=== PATIENT | female | born 1985 | race Caucasian/White ===

== ENCOUNTER 2018-10-10 10:02 | Emergency (ER) | payer OTHER ==
[~2018-10-10] VITALS: Ht 167.6 cm; Wt 79.1 kg
[~2018-10-10 10:02] MED LIST: /ACETCOD2T PO; /PREG100CA PO; /ROPI5TA PO; /TAMS4CA PO; ADVI200C5 PO; AUGM875T28 PO; BACITAB PO; BACL10TA2 PO; BUTACAP78 PO; BUTATAB16 PO; CIPR500T89 PO; CLIN75CA PO; DEPA250T2 PO; DEPA250T32 PO; DICL50TA2 PO; FLEX10TA2 PO; HYDR25CA PO; LYRI200C PO; LYRI75CA PO; METH75TA PO; MORP15TA10 PO; MS C200T PO; NEUR300C PO; PRED10TA PO; PROP10TA8 PO; ROBA750T4 PO; SKEL800T97 PO; SOMA350T PO; SUMA6INJ16 SC; TIZA4CAP PO; TOPA100T PO; TYLE325T5 PO; ULTR50TA PO; VALI10TA PO; VICO5TAB PO; VITA100037 PO; ZANA6CAP PO; ropinerole PO; topical cream TOP; zofran PO
[2018-10-10 10:12] VITALS: BP 142/92
[2018-10-10] MEDS ORDERED: ACETAMINOPHEN 325 MG TAB PO ONE (10:15)
[2018-10-10] MEDS ORDERED: IBUPROFEN 800 MG TAB PO ONE (10:15)
--- NOTE | 2018-10-10 10:32 | REP ---
CT study of the cervical spine without contrast: History: Trauma. Comparison imaging of the cervical spine is from May 19, 2015. Technique: Helical scanning is acquired and overlapping 2 mm high resolution axial images were generated and reviewed at bone and soft tissue window settings. Coronal and sagittal multiplanar re-formations images are generated. CT findings: There is no evidence of cervical spine element fracture. No skull base fracture is seen. Cervical vertebral body heights are preserved. There is some straightening of the normal cervical lordosis. Alignment is normal. Facet joints are normally aligned bilaterally at each cervical level on multiplanar re-formations images. There is no evidence of intraspinal or paraspinal hematoma. No extra vertebral abnormality is seen. Impression: Straightening, otherwise negative CT study of the cervical spine without contrast. No fracture seen. Electronically Signed by Rolly Browne MD 10/10/2018 10:23 A
--- NOTE | 2018-10-10 10:47 | REP ---
Clinical: Trauma. Technique: AP, lateral, swimmers views of the thoracic spine. Findings: Alignment and kyphosis maintained. Vertebral bodies are intact. No acute fracture / compression injury or subluxation. Stimulator device identified at the T7/T8 level. Impression: No acute thoracic trauma/injury appreciated. Electronically Signed by Horacio Gonzalez MD 10/10/2018 10:38 A
--- NOTE | 2018-10-10 10:47 | REP ---
Clinical: Trauma with left shoulder pain . Technique: Internal rotation, external rotation, and Y view. Findings: No acute fracture or dislocation. The acromioclavicular and glenohumeral joints are intact. No periarticular calcifications or degenerative changes are appreciated. Sub acromial space is normal. Surrounding soft tissues are unremarkable. Impression: Normal left shoulder radiographs. Electronically Signed by Horacio Gonzalez MD 10/10/2018 10:39 A
== END 2018-10-10 10:58 | disposition home or self-care (01) ==
LOC: M ED 10:02 → EDBD 10:02 → M ED 10:58
DX: S16.1XXA Strain of muscle, fascia and tendon at neck level, initial encounter (principal); S40.012A Contusion of left shoulder, initial encounter; S20.229A Contusion of unspecified back wall of thorax, initial encounter; W00.0XXA Fall on same level due to ice and snow, initial encounter; Y92.89 Other specified places as the place of occurrence of the external cause; G43.709 Chronic migraine without aura, not intractable, without status migrainosus; M19.90 Unspecified osteoarthritis, unspecified site; Z91.018 Allergy to other foods

== ENCOUNTER → 2019-09-30 | Outpatient (CLI) | payer OTHER ==
[~2019-09-30] MED LIST changes: -/ACETCOD2T PO; -/PREG100CA PO; -/ROPI5TA PO; -/TAMS4CA PO; +ACET1TAB15 PO; +FLOM0.4C39 PO; +LYRI100C PO; +PRED-351 PO; -PRED10TA PO; +REQU1TAB15 PO
--- NOTE | 2019-09-30 14:39 | REP ---
WHOLE BODY RADIONUCLIDE BONE SCAN: HISTORY: Bone disorder. Other disorder of bone density and structure. The patient reports additional history of right knee pain and limping. Pain from the mid back to the feet. TECHNIQUE: 22.0 mCi technetium 99m MDP is injected and standard whole body bone scan imaging is acquired. SCINTIGRAPHIC FINDINGS: There is a normal distribution of skeletal tracer with uptake in bilateral kidneys and in the urinary bladder. There is no abnormal skeletal uptake. There is no evidence to suggest skeletal metastatic disease. IMPRESSION: Negative radionuclide bone scan. Electronically Signed by Rolly Browne MD 09/30/2019 03:33 P
== END ==
LOC: M RAD 09:56
PROVIDERS: ATTEND Family Medicine
DX: M89.9 Disorder of bone, unspecified (principal)

== ENCOUNTER → 2019-11-17 | Outpatient (CLI) | payer OTHER ==
--- NOTE | 2019-11-19 01:48 | ECWPNPC ---
PATIENT NAME: JACKIE ANTHONY : 1985 GENDER: FEMALE VISIT DATE: 11/17/2019 DISCHARGE DATE: 11/17/19 1517 VISIT LOCKED DATE TIME: PHYSICIAN: DANN HOLLINS RESOURCE: DANN HOLLINS REASON FOR APPOINTMENT 1. BACK PAIN HISTORY OF PRESENT ILLNESS NEW PATIENT CONSULT: WHEN DID YOUR PAIN FIRST START? . BRIEFLY DESCRIBE HOW YOUR PAIN STARTED? . HOW DOES YOUR PAIN CHANGE WITH TIME? . DOES YOUR PAIN AWAKEN YOU FROM SLEEP? . HOW MANY HOURS OF SLEEP DO YOU NORMALLY GET? . ANY DIAGNOSTIC TESTING? . FACILITY WHERE TESTS WERE DONE? ____. PAIN TREATMENT TREATMENT YES CANCER HAVE YOU EVER HAD ANY TYPE OF CANCER?NO NO. 34 YEAR OLD FEMALE IN FOR INITIAL PAIN CONSULT. WHEN ASKED SHE DENIES HX OF TRAUMA AND STATES THE BACK PAIN HAS BEEN PRESENT SINCE 2005. SHE ADMITS TO INJECTIONS, MEDICATIONS, AND DCS IMPLANT IN THE PAST TO HELP CONTROL SYMPTOMS AND STATES THE DCS HAS BEEN THE MOST HELPFUL THUS FAR. SHE RATES HER PAIN CURRENTLY AT A 6/10 AND DESCRIBES IT SHARP, BURNING, STABBING, SHOOTING, AND TENDER. PAIN SCREENING: PATIENT HAS A COMPLAINT OF ACUTE OR CHRONIC PAIN :YES FALL RISK SCREENING: SCREENING : NO FALLS IN THE PAST YEAR. STONE INVENTORY: QUESTIONNAIRE ASSESSEDTBD SCORE VALUE CALCULATED TBD CURRENT MEDICATIONS TAKING GABAPENTIN 300 MG CAPSULE 3 CAPSULES ORALLY 3 TIMES A DAY TAKING MECLIZINE HCL 25 MG TABLET 1 TABLET NEEDED ORALLY 3 TIMES A DAY TAKING PANTOPRAZOLE SODIUM 40 MG TABLET DELAYED RELEASE 1 TABLET ORALLY ONCE A DAY TAKING CETIRIZINE HCL 10 MG TABLET 1 TABLET ORALLY ONCE A DAY TAKING MONTELUKAST SODIUM 10 MG TABLET 1 TABLET ORALLY ONCE A DAY TAKING DULOXETINE HCL 60 MG CAPSULE DELAYED RELEASE PARTICLES 1 CAPSULE ORALLY ONCE A DAY TAKING TRAZODONE HCL 100 MG TABLET 1 TABLET AT BEDTIME ORALLY ONCE A DAY TAKING FLINTSTONES COMPLETE - TABLET CHEWABLE DIRECTED 2 TABLETS ORALLY DAILY TAKING MELATONIN ER 10 MG TABLET EXTENDED RELEASE DIRECTED 2 TABLETS ORALLY NIGHTLY TAKING COLACE 100 MG CAPSULE 1 CAPSULE NEEDED ORALLY ONCE A DAY TAKING NORCO 10-325 MG TABLET 1 TABLET ORALLY EVERY 8 HRS PRN PAIN MDD=4 NOT-TAKING LYRICA 200 MG CAPSULE 1 CAPSULE ORALLY THREE TIMES DAILY (PAIN CLINIC) NOT-TAKING IBUPROFEN 200 MG #60 200 MG TABLETS 2-4 TABLETS ORALLY EVERY 6-8 HOURS NOT-TAKING TYLENOL 325 MG TABLET 1 TABLET NEEDED ORALLY EVERY 6 HRS NOT-TAKING METHOCARBAMOL 750 MG TABLET 1 TABLET ORALLY EVERY 8 HOURS NOT-TAKING LYRICA 200 MG CAPSULE 1 CAPSULE ORALLY THREE A DAY MDD=3 NOT-TAKING CUSTOM DO NO USE MORPHINE IR 15 MG DIRECTED FOUR TIMES DAILY NEEDED (PAIN CLINIC) NOT-TAKING SKELAXIN 800 MG TABLET 1 TABLET ORALLY THREE TO FOUR TIMES A DAY (PAIN CLINIC) NOT-TAKING TIZANIDINE HCL 8 MG TABLET 1 TABLET NEEDED ORALLY EVERY 8 HRS (PAIN CLINIC) NOT-TAKING CEFTIN 500 MG TABLET 1 TABLET ORALLY TWICE A DAY MEDICATION LIST REVIEWED AND RECONCILED WITH THE PATIENT PAST MEDICAL HISTORY CHRONIC R KNEE PAIN LUMBAR DEGENERATIVE DISC DZ/HERNIATION MIGRAINES RLS INSOMNIA HEARING LOSS FROM NOISE EXPOSURE IN THE AR[employer] LEFT WORSE THAN RIGHT KIDNEY STONES MYOPIA FIBROMYALGIA COSTOCHONDRITIS OSTEOARTHRITIS ENDOMETRIOSIS ALLERGIES HONEY: THROAT CLOSES OFF - ALLERGY SURGICAL HISTORY TONSILLECTOMY CHILD 2009 CHOLECYSTECTOMY 11/2015 LEFT WRIST RESET AFTER FRACTURES 04/2002 DORSAL COLUMN STIMULATOR 07/2018 FAMILY HISTORY FATHER: ALIVE, DIAGNOSED WITH DIABETES MOTHER: ALIVE, NO KNOWN MEDICAL PROBLEMS SIBLINGS: ALIVE 22 YRS MATERNAL GRAND MOTHER: ALIVE, BREAST AND LUNG CANCER 1 BROTHER(S) - HEALTHY. 2 SON(S) - HEALTHY. NO KNOWN FAMILY HISTORY OF ANY UROLOGICALLY RELATED DISEASES/CANCERS. SOCIAL HISTORY GENERAL: TOBACCO USE ARE YOU A:FORMER SMOKER HOW LONG HAS IT BEEN SINCE YOU LAST SMOKED?6-12 MONTHS E-CIGARETTEYES IN PROCESS OF QUITTING HIV / HEP-C SCREENING HIV TEST OFFERED TO PATIENT:YES DATE OFFERED:10/10/2018 TEST ACCEPTED:NO HEP-C TEST OFFERED TO PATIENT:NO REASON:PATIENT DECLINED BROCHURE PROVIDED TO PATIENTNO OTHERS AT HOME: YES. HOUSING: HOUSE. EDUCATION LEVEL OF EDUCATION:COLLEGE DIET: REGULAR. LANGUAGE LANGUAGES SPOKEN:VENEZUELAN RECREATIONAL DRUG USE DRUG USE?NO DENIES ABUSE OR MISUSE OF MEDICATIONS. DENIES USE OF MARIJUANA OR COCAINE. 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 PATIENT: ____. LEARNING BARRIERS / SPECIAL NEEDS BARRIERS TO LEARNING?NO HEARING IMPAIRED?YES : ABLE TO HEAR WITHOUT ASSISTIVE DEVICE VISION IMPAIRED?NO COGNITIVELY IMPAIRED?NO READINESS TO LEARN?YES LEARNING PREFERENCES?NO LEARNING CAPABILITIES PRESENT?YES EMOTIONAL BARRIERS?NO SPECIAL DEVICES?NO BRAKE SHOE REBUILDER NEEDED?NO PAIN CLINIC PFS, CLERGY, PUBLIC HEALTH REFERRALS PFS REFERRAL NEEDED?NO CLERGY REFERRAL NEEDED?NO PUBLIC HEALTH REFERRAL NEEDED?NO HAS THE PATIENT BEEN EDUCATED REGARDING HIS/HER PLAN OF CARE?YES HAS THE PATIENT BEEN EDUCATED REGARDING PAIN, THE RISK FOR PAIN, THE IMPORTANCE OF EFFECTIVE PAIN MANAGEMENT, AND THE PAIN ASSESSMENT PROCESS?YES CLERGY REFERRAL NEEDED?NO WAS THE PROVIDER NOTIFIED OF ANY PERTINENT INFO?NO PFS REFERRAL NEEDED?NO PUBLIC HEALTH REFERRAL NEEDED?NO CAFFEINE CAFFEINE USE?YES HOW OFTEN AND HOW MUCH? 2/DAY COFFEE ADVANCE DIRECTIVE ADVANCE DIRECTIVE DISCUSSED WITH PATIENT:YES INFORMATION OFFERED AND DECLINED. YARSANISM [id number] NONE MARITAL STATUS: . 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 [employer] HOSPITALIZATION/MAJOR DIAGNOSTIC PROCEDURE CHILDBIRTH [birth year] REVIEW OF SYSTEMS REVIEWED BY: PROVIDER: ROCKY BLANCO . CONSTITUTIONAL: ANY CHANGE IN YOUR MEDICAL CONDITION? NO . CHILLS NO . FEVER NO . INFECTION: DO YOU HAVE NEW INFECTIONS? NO . DO YOU HAVE HISTORY OF MRSA? NO . MUSCULOSKELETAL: ANY NEW PATTERNS OF PAIN OR NUMBNESS? YES . SYTEMIC LUPUS NO . GASTROENTEROLOGY: ANY NEW CHANGE IN BOWEL CONTROL? DIARRHEA . BARRETTS ESOPHAGUS NO . CIRRHOSIS NO . HEPATITIS NO . LIVER FAILURE NO . ACID REFLUX NO . UNEXPLAINED WEIGHT LOSS YES . GENITOURINARY: ANY NEW CHANGE IN BLADDER CONTROL? YES . IS THERE A CHANCE YOU COULD BE ? NO . HEMATOLOGY/LYMPH: DO YOU TAKE ANY BLOOD THINNERS? (FOR EXAMPLE- COUMADIN, PLAVIX, AGGRENOX, PLATEL, PRADAXA, OR XARELTO) NO . WHEN WAS YOUR LAST DOSE? DATE: TIME: . LOW PLATELET COUNT YES . SICKLE CELL DISEASE NO . VON WILLIEBRANDS NO . FACTOR V LEIDEN NO . THALLASEMIA NO . ANEMIA YES . EASY BRUISING YES . NEUROLOGY: HAVE YOU FALLEN IN THE PAST 12 MONTHS? YES . ANY NEW EXTREMITY NUMBNESS OR WEAKNESS? YES . HEAD INJURY NO . DEMENTIA NO . CEREBRAL PALSY NO . MULTIPLE SCLEROSIS NO . DIZZINESS YES . HEADACHE YES . STROKES NO . VERTIGO YES . CARDIOLOGY: DO YOU HAVE A PACEMAKER OR DEFIBRILLATOR? NO . ANGINA NO . HEART ATTACK NO . HEART SURGERY NO . CONGESTIVE HEART FAILURE/FLUID OVERLOAD NO . CHEST PAIN YES - COSTOCHONDRITIS . HIGH BLOOD PRESSURE NO . IRREGULAR HEART BEAT NO . RESPIRATORY: HAVE YOU BEEN SICK IN THE PAST WEEK? NO . FEVER NO . FLU LIKE SYMPTOMS? NO . CPAP NO . BYPAP NO . ASTHMA NO . EMPHYSEMA NO . CHRONIC LUNG DISEASES NO . SHORTNESS OF BREATH ON EXERTION NO . DO YOU USE ANY TYPE OF TOBACCO (SMOKE, SMOKELESS, CHEW)? NO . COUGH NO . SNORING NO . INTEGUMENTARY: DO YOU HAVE ANY RASHES OR OPEN SORES? NO . ALLERGIC/IMMUNO: ARE YOU ALLERGIC TO IV DYE? NO . ANY NEW ALLERGIES? NO . PSYCHIATRIC: DO YOU HAVE THOUGHTS OF HURTING YOURSELF OR SOMEONE ELSE? NO . ARE YOU ABUSED, NEGLECTED, OR IN AN UNSAFE ENVIRONMENT? NO . ENDOCRINOLOGY: ARE YOU DIABETIC? NO . THYROID DISORDER NO . OTHER: DO YOU NEED ANY PRESCRIPTIONS? YES . IF YES, PLEASE LIST: SOMETHING TO HELP ON REALLY BAD DAYS . ANY NEW PROBLEMS WITH YOUR MEDICATIONS? NO . WHEN DID YOU LAST EAT? ____ . WHEN DID YOU LAST DRINK? ____ . WHAT DID YOU LAST DRINK? ____ . NAME OF PERSON DRIVING YOU HOME? ____ . DO YOU HAVE ANY OTHER QUESTIONS OR CONCERNS YES - LOSE FEELING IN LIMBS, BECOME DIZZY AND FALL . VITAL SIGNS WT 128 LBS, HT 65 IN, BMI 21.30 INDEX, BP 126/70 MM HG, HR 72 /MIN, RR 18 /MIN, TEMP 98.7 F, OXYGEN SAT % 99%, NA INITIALS AW 1336, REVIEWED BY: LS. EXAMINATION GENERAL EXAMINATION: GENERALNO ACUTE DISTRESS, WELL NOURISHED AND HYDRATED. PSYCHAPPROPRIATE MOOD AND AFFECT . LUNGS:CLEAR TO AUSCULTATION BILATERALLY, NO WHEEZES, RHONCHI, RALES. HEART:NO MURMURS, REGULAR RATE AND RHYTHM. BACK:POINT TENDER ALONG LUMBAR SPINE, SURROUNDING SKIN SHOWS NO ERYTHEMA, ECCHYMOSIS, INCREASED WARMTH, AND/OR SKIN ERUPTIONS NOTED.. MUSCULOSKELETAL: NOTABLE WEAKNESS OF THE RLE, LLE WNL. ASSESSMENTS LUMBAR DISC DISEASE WITH RADICULOPATHY - M51.16 (PRIMARY) TREATMENT LUMBAR DISC DISEASE WITH RADICULOPATHY START BELBUCA FILM, 75 MCG, 1 FILM TO THE GUM, BUCALLY, EVERY 12 HRS, 30 DAYS, 60 CLINICAL NOTES: 34 YEAR OLD FEMALE IN FOR INITIAL PAIN CONSULT. GIVEN PRESENTING SYMPTOMS AND RESULTS OF PHYSICAL EXAMINATION RECOMMEND BELBUCA WITH FOLLOW UP IN 1 MONTH TO DETERMINE EFFICACY OF TREATMENT. PROCEDURES DISCUSSED WITH PATIENT AND SHE WOULD LIKE TO RESEARCH RF PROCEDURE. PATIENT HAS EXPRESSED UNDERSTANDING OF AND WAS IN AGREEMENT WITH TX PLAN. GIVEN TIME TO ASK QUESTIONS AND EXPRESS CONCERNS. , ISTOP REGISTRY REVIEWED AND DEMONSTRATES COMPLLIANCE. (REF #[id number] ) BRINGS IN MEDICATIONS WHICH IS APPROPRIATE FOR WHAT WAS DISPENSED. RECENT URINE TOXICOLOGY REVIEWED. NO UNAUTHORIZED MEDICATIONS. NO ILLICIT SUBSTANCES AND PRESCRIBED MEDICATIONS WERE PRESENT. PROCEDURE CODES FA211 ESTABILISHED PATIENT [facility] FACILITY CHARGE DISPOSITION & COMMUNICATION FOLLOW UP 4 WEEKS (REASON: LOW BACK PAIN ) ELECTRONICALLY SIGNED BY BALWINDER ATWOOD ON 11/18/2019 AT 08:01 AM EST DISCLAIMER : THIS IS A VISIT SUMMARY EXTRACTED FROM THE [employer] CHART. IT IS NOT A COPY OF THE [employer] PROGRESS NOTE. FRANCESCA
== END ==
LOC: M PAIN 13:30
PROVIDERS: ATTEND Family Medicine
DX: M51.16 Intervertebral disc disorders with radiculopathy, lumbar region (principal); G43.909 Migraine, unspecified, not intractable, without status migrainosus; G25.81 Restless legs syndrome; G47.00 Insomnia, unspecified; M79.7 Fibromyalgia; F17.290 Nicotine dependence, other tobacco product, uncomplicated; Z91.018 Allergy to other foods; Z79.891 Long term (current) use of opiate analgesic; Z79.899 Other long term (current) drug therapy

== ENCOUNTER → 2019-12-15 | Outpatient (CLI) | payer OTHER ==
--- NOTE | 2019-12-18 02:56 | ECWPNPC ---
PATIENT NAME: JACKIE ANTHONY : 1985 GENDER: FEMALE VISIT DATE: 12/15/2019 DISCHARGE DATE: 12/15/19 1129 VISIT LOCKED DATE TIME: PHYSICIAN: DANN HOLLINS RESOURCE: DANN HOLLINS REASON FOR APPOINTMENT 1. LOW BACK PAIN HISTORY OF PRESENT ILLNESS HISTORY OF PRESENT ILLNESS: PAIN THE PATIENT DESCRIBES THE PAIN... 34-YEAR-OLD FEMALE IN FOR CHRONIC PAIN FOLLOW-UP. AT LAST CLINIC VISIT PATIENT WAS STARTED ON BELBUCA AND SHE ADMITS TODAY THAT THIS HAS BEEN HELPFUL HOWEVER SHE HAD NOT RECEIVED A LOT OF PAIN RELIEF WITH IT. SHE RATES HER PAIN CURRENTLY AT A 6 OUT OF 10 AND DESCRIBES IT SHARP, BURNING, AND SHOOTING. SHE IS QUESTIONING BEING STARTED ON FLEXERIL SHE HAS BEEN ON THIS IN THE PAST AND FOUND IT HELPFUL. FALL RISK SCREENING: SCREENING :NO FALLS REPORTED IN THE LAST YEAR CURRENT MEDICATIONS TAKING MECLIZINE HCL 25 MG TABLET 1 TABLET NEEDED ORALLY 3 TIMES A DAY TAKING PANTOPRAZOLE SODIUM 40 MG TABLET DELAYED RELEASE 1 TABLET ORALLY ONCE A DAY TAKING CETIRIZINE HCL 10 MG TABLET 1 TABLET ORALLY ONCE A DAY TAKING MONTELUKAST SODIUM 10 MG TABLET 1 TABLET ORALLY ONCE A DAY TAKING TRAZODONE HCL 150 MG TABLET 1 TABLET AT BEDTIME ORALLY ONCE A DAY TAKING FLINTSTONES COMPLETE - TABLET CHEWABLE DIRECTED 2 TABLETS ORALLY DAILY TAKING COLACE 100 MG CAPSULE 1 CAPSULE NEEDED ORALLY ONCE A DAY TAKING BELBUCA 75 MCG FILM 1 FILM TO THE GUM BUCALLY EVERY 12 HRS NOT-TAKING GABAPENTIN 300 MG CAPSULE 3 CAPSULES ORALLY 3 TIMES A DAY NOT-TAKING DULOXETINE HCL 60 MG CAPSULE DELAYED RELEASE PARTICLES 1 CAPSULE ORALLY ONCE A DAY NOT-TAKING MELATONIN ER 10 MG TABLET EXTENDED RELEASE DIRECTED 2 TABLETS ORALLY NIGHTLY NOT-TAKING NORCO 10-325 MG TABLET 1 TABLET ORALLY EVERY 8 HRS PRN PAIN MDD=4 NOT-TAKING LYRICA 200 MG CAPSULE 1 CAPSULE ORALLY THREE TIMES DAILY (PAIN CLINIC) NOT-TAKING IBUPROFEN 200 MG #60 200 MG TABLETS 2-4 TABLETS ORALLY EVERY 6-8 HOURS NOT-TAKING TYLENOL 325 MG TABLET 1 TABLET NEEDED ORALLY EVERY 6 HRS NOT-TAKING METHOCARBAMOL 750 MG TABLET 1 TABLET ORALLY EVERY 8 HOURS NOT-TAKING LYRICA 200 MG CAPSULE 1 CAPSULE ORALLY THREE A DAY MDD=3 NOT-TAKING CUSTOM DO NO USE MORPHINE IR 15 MG DIRECTED FOUR TIMES DAILY NEEDED (PAIN CLINIC) NOT-TAKING SKELAXIN 800 MG TABLET 1 TABLET ORALLY THREE TO FOUR TIMES A DAY (PAIN CLINIC) NOT-TAKING TIZANIDINE HCL 8 MG TABLET 1 TABLET NEEDED ORALLY EVERY 8 HRS (PAIN CLINIC) NOT-TAKING CEFTIN 500 MG TABLET 1 TABLET ORALLY TWICE A DAY MEDICATION LIST REVIEWED AND RECONCILED WITH THE PATIENT PAST MEDICAL HISTORY CHRONIC R KNEE PAIN LUMBAR DEGENERATIVE DISC DZ/HERNIATION MIGRAINES RLS INSOMNIA HEARING LOSS FROM NOISE EXPOSURE IN THE ARMY LEFT WORSE THAN RIGHT KIDNEY STONES MYOPIA FIBROMYALGIA COSTOCHONDRITIS OSTEOARTHRITIS ENDOMETRIOSIS ALLERGIES HONEY: THROAT CLOSES OFF - ALLERGY SURGICAL HISTORY TONSILLECTOMY CHILD 2009 CHOLECYSTECTOMY 11/2015 LEFT WRIST RESET AFTER FRACTURES 04/2002 DORSAL COLUMN STIMULATOR 07/2018 FAMILY HISTORY FATHER: ALIVE, DIAGNOSED WITH DIABETES MOTHER: ALIVE, NO KNOWN MEDICAL PROBLEMS SIBLINGS: ALIVE 22 YRS MATERNAL GRAND MOTHER: ALIVE, BREAST AND LUNG CANCER 1 BROTHER(S) - HEALTHY. 2 SON(S) - HEALTHY. NO KNOWN FAMILY HISTORY OF ANY UROLOGICALLY RELATED DISEASES/CANCERS. SOCIAL HISTORY GENERAL: TOBACCO USE ARE YOU A:FORMER SMOKER HOW LONG HAS IT BEEN SINCE YOU LAST SMOKED?6-12 MONTHS VAPORYES E-CIGARETTEYES IN PROCESS OF QUITTING HIV / HEP-C SCREENING HIV TEST OFFERED TO PATIENT:YES DATE OFFERED:10/10/2018 TEST ACCEPTED:NO HEP-C TEST OFFERED TO PATIENT:NO REASON:PATIENT DECLINED BROCHURE PROVIDED TO PATIENTNO OTHERS AT HOME: YES. HOUSING: HOUSE. EDUCATION LEVEL OF EDUCATION:COLLEGE DIET: REGULAR. LANGUAGE LANGUAGES SPOKEN:WOLOF RECREATIONAL DRUG USE DRUG USE?NO DENIES ABUSE OR MISUSE OF MEDICATIONS. DENIES USE OF MARIJUANA OR COCAINE. 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 LEARNING BARRIERS / SPECIAL NEEDS BARRIERS TO LEARNING?NO HEARING IMPAIRED?YES VISION IMPAIRED?NO COGNITIVELY IMPAIRED?NO : ABLE TO HEAR WITHOUT ASSISTIVE DEVICE READINESS TO LEARN?YES LEARNING PREFERENCES?NO LEARNING CAPABILITIES PRESENT?YES EMOTIONAL BARRIERS?NO SPECIAL DEVICES?NO INSTALLATION SERVICE REPRESENTATIVE NEEDED?NO PAIN CLINIC PFS, CLERGY, PUBLIC HEALTH REFERRALS PFS REFERRAL NEEDED?NO CLERGY REFERRAL NEEDED?NO PUBLIC HEALTH REFERRAL NEEDED?NO HAS THE PATIENT BEEN EDUCATED REGARDING HIS/HER PLAN OF CARE?YES HAS THE PATIENT BEEN EDUCATED REGARDING PAIN, THE RISK FOR PAIN, THE IMPORTANCE OF EFFECTIVE PAIN MANAGEMENT, AND THE PAIN ASSESSMENT PROCESS?YES LATEX QUESTIONNAIRE LATEX ALLERGY : HAVE YOU EVER DEVELOPED ANY TYPE OF REACTION AFTER HANDLING LATEX PRODUCTS SUCH RUBBER GLOVES, CONDOMS, DIAPHRAGMS, BALLOONS, SOCKS, OR UNDERWEAR?NO LATEX ALLERGY : HAVE YOU EVER DEVELOPED ANY TYPE OF REACTION DURING OR AFTER DENTAL APPOINTMENT, VAGINAL/RECTAL EXAMINATION, SURGICAL PROCEDURE, OR ANY OTHER EXPOSURE?NO LATEX RISK : HAVE YOU EVER HAD ANY DIFFICULTY BREATHING OR HIVES AFTER EATING OR HANDLING ANY FRUITS, OR VEGETABLES; SUCH KIWI, BANANAS, STONE FRUITS, OR CHESTNUTSNO LATEX RISK : DO YOU HAVE A PREVIOUS PERSONAL HISTORY OF MORE THAN NINE SURGERIES, SPINA BIFIDA, OR REPEATED CATHERIZATIONS? NO LATEX RISK : ARE YOU FREQUENTLY EXPOSED TO LATEX PRODUCTS IN YOUR OCCUPATION?NO DATE ASKED : 12/15/2019 CAFFEINE CAFFEINE USE?YES HOW OFTEN AND HOW MUCH? 2/DAY COFFEE ADVANCE DIRECTIVE ADVANCE DIRECTIVE DISCUSSED WITH PATIENT:YES 12/15/2019 PATIENT HAS NO ADVANCED DIRECTIVES AND HCP INFORMATION OFFERED AND DECLINED. LINDSAY TENRIISM [id number] NONE MARITAL STATUS: . 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 [employer].. REVIEWED WITH PATIENT 12/15/2019 1045 JS. HOSPITALIZATION/MAJOR DIAGNOSTIC PROCEDURE CHILDBIRTH [birth year] REVIEW OF SYSTEMS REVIEWED BY: PROVIDER: ROCKY HOLLINS PHYSICIAN-Vickey . CONSTITUTIONAL: ANY CHANGE IN YOUR MEDICAL CONDITION? NO . CHILLS NO . FEVER NO . INFECTION: DO YOU HAVE NEW INFECTIONS? NO . DO YOU HAVE HISTORY OF MRSA? NO . MUSCULOSKELETAL: ANY NEW PATTERNS OF PAIN OR NUMBNESS? YES, STATES PAIN INCREASED . GASTROENTEROLOGY: ANY NEW CHANGE IN BOWEL CONTROL? NO . GENITOURINARY: ANY NEW CHANGE IN BLADDER CONTROL? NO . IS THERE A CHANCE YOU COULD BE ? NO . HEMATOLOGY/LYMPH: DO YOU TAKE ANY BLOOD THINNERS? (FOR EXAMPLE- COUMADIN, PLAVIX, AGGRENOX, PLATEL, PRADAXA, OR XARELTO) NO . WHEN WAS YOUR LAST DOSE? DATE: TIME: . NEUROLOGY: HAVE YOU FALLEN IN THE PAST 12 MONTHS? YES, STATES FALL DUE TO RIGHT LEG GIVING OUT. NO MAJOR INJURIES, NO ED VISIT . ANY NEW EXTREMITY NUMBNESS OR WEAKNESS? NO . CARDIOLOGY: DO YOU HAVE A PACEMAKER OR DEFIBRILLATOR? YES, DCS . RESPIRATORY: HAVE YOU BEEN SICK IN THE PAST WEEK? NO . FEVER NO . FLU LIKE SYMPTOMS? NO . COUGH NO . INTEGUMENTARY: DO YOU HAVE ANY RASHES OR OPEN SORES? NO . ALLERGIC/IMMUNO: ARE YOU ALLERGIC TO IV DYE? NO . ANY NEW ALLERGIES? NO . PSYCHIATRIC: DO YOU HAVE THOUGHTS OF HURTING YOURSELF OR SOMEONE ELSE? NO . ARE YOU ABUSED, NEGLECTED, OR IN AN UNSAFE ENVIRONMENT? NO . ENDOCRINOLOGY: ARE YOU DIABETIC? NO . OTHER: DO YOU NEED ANY PRESCRIPTIONS? YES . IF YES, PLEASE LIST: ____BELBUCA . ANY NEW PROBLEMS WITH YOUR MEDICATIONS? YES, STATES THE BELBUCA NOT HELPING MUCH . WHEN DID YOU LAST EAT? ____ . WHEN DID YOU LAST DRINK? ____ . WHAT DID YOU LAST DRINK? ____ . NAME OF PERSON DRIVING YOU HOME? ____ . DO YOU HAVE ANY OTHER QUESTIONS OR CONCERNS YES, WOULD LIKE TO DISCUSS STARTING A MUSCLE RELAXER HER LEGS AND BACK HAVE BEEN HAVING A SIGNIFICANT AMOUNT OF MUSCLE SPASMS . VITAL SIGNS WT 136.4 LBS, HT 65 IN, BMI 22.70 INDEX, BP 108/70 MM HG, HR 70 /MIN, RR 18 /MIN, TEMP 98.6 F, OXYGEN SAT % 97%, SAFE IN ENV? (Y/N) YES, REVIEWED BY: LINDSAY. EXAMINATION GENERAL EXAMINATION: GENERALNO ACUTE DISTRESS, WELL NOURISHED AND HYDRATED. PSYCHAPPROPRIATE MOOD AND AFFECT . LUNGS:CLEAR TO AUSCULTATION BILATERALLY, NO WHEEZES, RHONCHI, RALES. HEART:NO MURMURS, REGULAR RATE AND RHYTHM. ASSESSMENTS LUMBAR DISC DISEASE WITH RADICULOPATHY - M51.16 (PRIMARY) TREATMENT LUMBAR DISC DISEASE WITH RADICULOPATHY INCREASE BELBUCA FILM, 150 MCG, 1 FILM TO THE GUM, BUCALLY, EVERY 12 HRS, 30 DAYS, 60 START TIZANIDINE HCL TABLET, 4 MG, 1 TABLET NEEDED, ORALLY, THREE TIMES A DAY, 30 DAYS, 90 TABLET CLINICAL NOTES: 34-YEAR-OLD FEMALE IN FOR CHRONIC PAIN FOLLOW-UP. GIVEN PRESENTING SYMPTOMS AND RESULTS OF PHYSICAL EXAMINATION RECOMMENDED INCREASING BELBUCA AND STARTING FLEXERIL WITH FOLLOW-UP IN ONE MONTH TO DETERMINE EFFICACY TREATMENT. PATIENT HAS EXPRESSED UNDERSTANDING OF AND WAS IN AGREEMENT WITH TREATMENT PLAN. GIVEN TIME TO ASK QUESTIONS AND EXPRESS CONCERNS., ISTOP REGISTRY REVIEWED AND DEMONSTRATES COMPLLIANCE. (REF # [id number] ) BRINGS IN MEDICATIONS WHICH IS APPROPRIATE FOR WHAT WAS DISPENSED. RECENT URINE TOXICOLOGY REVIEWED. NO UNAUTHORIZED MEDICATIONS. NO ILLICIT SUBSTANCES AND PRESCRIBED MEDICATIONS WERE PRESENT. PREVENTIVE MEDICINE PAIN CLINIC TEACHING: MEDICATIONS PRINTED AND REVIEWED INFORMATION ON NEW MEDICATION, TIZANIDINE, WITH PATIENT. PATIENT VERBALIZED AN UNDERSTANDING. LACY TORRES 12/15/2019 1:44:05 PM > . PROCEDURE CODES FA211 ESTABILISHED PATIENT [facility] CHARGE DISPOSITION & COMMUNICATION FOLLOW UP 4 WEEKS (REASON: BACK PAIN, NEW MEDICATION) ELECTRONICALLY SIGNED BY BALWINDER ATWOOD ON 12/17/2019 AT 12:35 PM EST DISCLAIMER : THIS IS A VISIT SUMMARY EXTRACTED FROM THE [employer] CHART. IT IS NOT A COPY OF THE [employer] PROGRESS NOTE. FRANCESCA
== END ==
LOC: M PAIN 10:00
PROVIDERS: ATTEND Family Medicine
DX: M51.16 Intervertebral disc disorders with radiculopathy, lumbar region (principal); G89.29 Other chronic pain; G43.909 Migraine, unspecified, not intractable, without status migrainosus; G25.81 Restless legs syndrome; G47.00 Insomnia, unspecified; M79.7 Fibromyalgia; F17.290 Nicotine dependence, other tobacco product, uncomplicated; Z91.018 Allergy to other foods; Z96.89 Presence of other specified functional implants; Z79.891 Long term (current) use of opiate analgesic; Z79.899 Other long term (current) drug therapy

== ENCOUNTER → 2020-01-20 | Outpatient (CLI) | payer OTHER ==
--- NOTE | 2020-01-22 02:46 | ECWPNPC ---
PATIENT NAME: JACKIE ANTHONY : 1985 GENDER: FEMALE VISIT DATE: 01/20/2020 DISCHARGE DATE: 01/20/20 1026 VISIT LOCKED DATE TIME: PHYSICIAN: DANN HOLLINS RESOURCE: DANN HOLLINS REASON FOR APPOINTMENT 1. LOW BACK PAIN HISTORY OF PRESENT ILLNESS HISTORY OF PRESENT ILLNESS: PAIN THE PATIENT DESCRIBES THE PAINDURING THE LAST MONTH SEVERITY - PAIN SCORE OF7/10 LOCATIONSLOWER BACK, RIGHT LEG QUALITYSTABBING DURATIONCONTINUOUS, CONSTANT, ALL DAY, AWAKENS FROM SLEEEP PAIN IS INCREASED BY:ACTIVITIES, PROLONGED STANDING PAIN IS DECREASED BY:OTHERS LEG ELEVATION 34-YEAR-OLD FEMALE IN FOR CHRONIC PAIN FOLLOW-UP. SHE RATES HER PAIN CURRENTLY AT A 7 OUT OF 10 AND DESCRIBES IT STABBING. SHE IS CURRENTLY ON BELBUCA AND TIZANIDINE AND FEELS THAT NEITHER OF THESE MEDICATIONS ARE HELPING TO ALLEVIATE HIS SYMPTOMS. SHE WOULD LIKE TO DISCUSS A CHANGE IN HER MEDICATIONS. FALL RISK SCREENING: SCREENING :ONE FALL WITHOUT INJURY IN THE PAST YEAR CURRENT MEDICATIONS TAKING MECLIZINE HCL 25 MG TABLET 1 TABLET NEEDED ORALLY 3 TIMES A DAY TAKING PANTOPRAZOLE SODIUM 40 MG TABLET DELAYED RELEASE 1 TABLET ORALLY ONCE A DAY TAKING CETIRIZINE HCL 10 MG TABLET 1 TABLET ORALLY ONCE A DAY TAKING MONTELUKAST SODIUM 10 MG TABLET 1 TABLET ORALLY ONCE A DAY TAKING TRAZODONE HCL 150 MG TABLET 1 TABLET AT BEDTIME ORALLY ONCE A DAY TAKING FLINTSTONES COMPLETE - TABLET CHEWABLE DIRECTED 2 TABLETS ORALLY DAILY TAKING COLACE 100 MG CAPSULE 1 CAPSULE NEEDED ORALLY ONCE A DAY TAKING BELBUCA 150 MCG FILM 1 FILM TO THE GUM BUCALLY EVERY 12 HRS TAKING TIZANIDINE HCL 4 MG TABLET 1 TABLET NEEDED ORALLY THREE TIMES A DAY NOT-TAKING GABAPENTIN 300 MG CAPSULE 3 CAPSULES ORALLY 3 TIMES A DAY NOT-TAKING DULOXETINE HCL 60 MG CAPSULE DELAYED RELEASE PARTICLES 1 CAPSULE ORALLY ONCE A DAY NOT-TAKING MELATONIN ER 10 MG TABLET EXTENDED RELEASE DIRECTED 2 TABLETS ORALLY NIGHTLY NOT-TAKING NORCO 10-325 MG TABLET 1 TABLET ORALLY EVERY 8 HRS PRN PAIN MDD=4 NOT-TAKING LYRICA 200 MG CAPSULE 1 CAPSULE ORALLY THREE TIMES DAILY (PAIN CLINIC) NOT-TAKING IBUPROFEN 200 MG #60 200 MG TABLETS 2-4 TABLETS ORALLY EVERY 6-8 HOURS NOT-TAKING TYLENOL 325 MG TABLET 1 TABLET NEEDED ORALLY EVERY 6 HRS NOT-TAKING METHOCARBAMOL 750 MG TABLET 1 TABLET ORALLY EVERY 8 HOURS NOT-TAKING LYRICA 200 MG CAPSULE 1 CAPSULE ORALLY THREE A DAY MDD=3 NOT-TAKING CUSTOM DO NO USE MORPHINE IR 15 MG DIRECTED FOUR TIMES DAILY NEEDED (PAIN CLINIC) NOT-TAKING SKELAXIN 800 MG TABLET 1 TABLET ORALLY THREE TO FOUR TIMES A DAY (PAIN CLINIC) NOT-TAKING TIZANIDINE HCL 8 MG TABLET 1 TABLET NEEDED ORALLY EVERY 8 HRS (PAIN CLINIC) NOT-TAKING CEFTIN 500 MG TABLET 1 TABLET ORALLY TWICE A DAY MEDICATION LIST REVIEWED AND RECONCILED WITH THE PATIENT PAST MEDICAL HISTORY CHRONIC R KNEE PAIN LUMBAR DEGENERATIVE DISC DZ/HERNIATION MIGRAINES RLS INSOMNIA HEARING LOSS FROM NOISE EXPOSURE IN THE ARMY LEFT WORSE THAN RIGHT KIDNEY STONES MYOPIA FIBROMYALGIA COSTOCHONDRITIS OSTEOARTHRITIS ENDOMETRIOSIS ALLERGIES HONEY: THROAT CLOSES OFF - ALLERGY SURGICAL HISTORY TONSILLECTOMY CHILD 2009 CHOLECYSTECTOMY 11/2015 LEFT WRIST RESET AFTER FRACTURES 04/2002 DORSAL COLUMN STIMULATOR 07/2018 FAMILY HISTORY FATHER: ALIVE, DIAGNOSED WITH DIABETES MOTHER: ALIVE, NO KNOWN MEDICAL PROBLEMS SIBLINGS: ALIVE 22 YRS MATERNAL GRAND MOTHER: ALIVE, BREAST AND LUNG CANCER 1 BROTHER(S) - HEALTHY. 2 SON(S) - HEALTHY. NO KNOWN FAMILY HISTORY OF ANY UROLOGICALLY RELATED DISEASES/CANCERS. SOCIAL HISTORY GENERAL: TOBACCO USE ARE YOU A:FORMER SMOKER HOW LONG HAS IT BEEN SINCE YOU LAST SMOKED?6-12 MONTHS VAPORYES E-CIGARETTEYES IN PROCESS OF QUITTING HIV / HEP-C SCREENING HIV TEST OFFERED TO PATIENT:YES DATE OFFERED:10/10/2018 TEST ACCEPTED:NO HEP-C TEST OFFERED TO PATIENT:NO REASON:PATIENT DECLINED BROCHURE PROVIDED TO PATIENTNO OTHERS AT HOME: YES. HOUSING: HOUSE. EDUCATION LEVEL OF EDUCATION:COLLEGE DIET: REGULAR. LANGUAGE LANGUAGES SPOKEN:JAMAICAN NEW PATIENT PAIN DIARY PATIENT DESCRIBES PAIN :HAVE IT ALL THE TIME, STABBING FROM 0-10, WHAT LEVEL IS YOUR PAIN TODAY?6 PRECIPITATING FACTORS STANDING ALLEVIATING FACTORS ELEVATION OF LEGS IMPACT ON FUNCTION YES RECREATIONAL DRUG USE DRUG USE?NO DENIES ABUSE OR MISUSE OF MEDICATIONS. DENIES USE OF MARIJUANA OR COCAINE. 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 NEEDED?NO PAIN CLINIC PFS, CLERGY, PUBLIC HEALTH REFERRALS PFS REFERRAL NEEDED?NO CLERGY REFERRAL NEEDED?NO PUBLIC HEALTH REFERRAL NEEDED?NO HAS THE PATIENT BEEN EDUCATED REGARDING HIS/HER PLAN OF CARE?YES HAS THE PATIENT BEEN EDUCATED REGARDING PAIN, THE RISK FOR PAIN, THE IMPORTANCE OF EFFECTIVE PAIN MANAGEMENT, AND THE PAIN ASSESSMENT PROCESS?YES LATEX QUESTIONNAIRE LATEX ALLERGY : HAVE YOU EVER DEVELOPED ANY TYPE OF REACTION AFTER HANDLING LATEX PRODUCTS SUCH RUBBER GLOVES, CONDOMS, DIAPHRAGMS, BALLOONS, SOCKS, OR UNDERWEAR?NO LATEX ALLERGY : HAVE YOU EVER DEVELOPED ANY TYPE OF REACTION DURING OR AFTER DENTAL APPOINTMENT, VAGINAL/RECTAL EXAMINATION, SURGICAL PROCEDURE, OR ANY OTHER EXPOSURE?NO DATE ASKED : 12/15/2019 LATEX RISK : HAVE YOU EVER HAD ANY DIFFICULTY BREATHING OR HIVES AFTER EATING OR HANDLING ANY FRUITS, OR VEGETABLES; SUCH KIWI, BANANAS, STONE FRUITS, OR CHESTNUTSNO LATEX RISK : DO YOU HAVE A PREVIOUS PERSONAL HISTORY OF MORE THAN NINE SURGERIES, SPINA BIFIDA, OR REPEATED CATHERIZATIONS? NO LATEX RISK : ARE YOU FREQUENTLY EXPOSED TO LATEX PRODUCTS IN YOUR OCCUPATION?NO CAFFEINE CAFFEINE USE?YES HOW OFTEN AND HOW MUCH? 2/DAY COFFEE ADVANCE DIRECTIVE ADVANCE DIRECTIVE DISCUSSED WITH PATIENT:YES PATIENT HAS NO ADVANCED DIRECTIVES AND HCP INFORMATION OFFERED AND DECLINED. ORTHODOXY [id number] NONE MARITAL STATUS: . 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 [employer].. REVIEWED WITH PATIENT 12/15/2019 1045 JS. HOSPITALIZATION/MAJOR DIAGNOSTIC PROCEDURE CHILDBIRTH [birth year] REVIEW OF SYSTEMS REVIEWED BY: PROVIDER: ROCKY BLANCO . CONSTITUTIONAL: ANY CHANGE IN YOUR MEDICAL CONDITION? NO . CHILLS NO . FEVER NO . INFECTION: DO YOU HAVE NEW INFECTIONS? NO . DO YOU HAVE HISTORY OF MRSA? NO . MUSCULOSKELETAL: ANY NEW PATTERNS OF PAIN OR NUMBNESS? NO . GASTROENTEROLOGY: ANY NEW CHANGE IN BOWEL CONTROL? NO . GENITOURINARY: ANY NEW CHANGE IN BLADDER CONTROL? NO . IS THERE A CHANCE YOU COULD BE ? NO . HEMATOLOGY/LYMPH: DO YOU TAKE ANY BLOOD THINNERS? (FOR EXAMPLE- COUMADIN, PLAVIX, AGGRENOX, PLATEL, PRADAXA, OR XARELTO) NO . WHEN WAS YOUR LAST DOSE? DATE: TIME: . NEUROLOGY: HAVE YOU FALLEN IN THE PAST 12 MONTHS? NO . ANY NEW EXTREMITY NUMBNESS OR WEAKNESS? NO . CARDIOLOGY: DO YOU HAVE A PACEMAKER OR DEFIBRILLATOR? NO . RESPIRATORY: HAVE YOU BEEN SICK IN THE PAST WEEK? NO . FEVER NO . FLU LIKE SYMPTOMS? NO . COUGH NO . INTEGUMENTARY: DO YOU HAVE ANY RASHES OR OPEN SORES? NO . ALLERGIC/IMMUNO: ARE YOU ALLERGIC TO IV DYE? NO . ANY NEW ALLERGIES? NO . PSYCHIATRIC: DO YOU HAVE THOUGHTS OF HURTING YOURSELF OR SOMEONE ELSE? NO . ARE YOU ABUSED, NEGLECTED, OR IN AN UNSAFE ENVIRONMENT? NO . ENDOCRINOLOGY: ARE YOU DIABETIC? NO . OTHER: DO YOU NEED ANY PRESCRIPTIONS? NO . IF YES, PLEASE LIST: ____ . ANY NEW PROBLEMS WITH YOUR MEDICATIONS? NO . WHEN DID YOU LAST EAT? ____ . WHEN DID YOU LAST DRINK? ____ . WHAT DID YOU LAST DRINK? ____ . NAME OF PERSON DRIVING YOU HOME? ____ . DO YOU HAVE ANY OTHER QUESTIONS OR CONCERNS NO . VITAL SIGNS WT 138 LBS, HT 65 IN, BMI 22.96 INDEX, BP 109/65 MM HG, HR 71 /MIN, RR 18 /MIN, TEMP 97.0 F, OXYGEN SAT % 98%, SAFE IN ENV? 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 EXAMINATION GENERAL EXAMINATION: GENERALNO ACUTE DISTRESS, WELL NOURISHED AND HYDRATED. PSYCHAPPROPRIATE MOOD AND AFFECT . LUNGS:CLEAR TO AUSCULTATION BILATERALLY, NO WHEEZES, RHONCHI, RALES. HEART:NO MURMURS, REGULAR RATE AND RHYTHM. 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 CLINICAL NOTES: 34-YEAR-OLD FEMALE IN FOR CHRONIC PAIN FOLLOW-UP. GIVEN PRESENTING SYMPTOMS AND RESULTS OF PHYSICAL EXAMINATION RECOMMENDED STOPPING BELBUCA AND STARTING TRAMADOL 50MG DAILY NEEDED FOR PAIN WITH FOLLOW-UP IN ONE MONTH TO DETERMINE EFFICACY OF TREATMENT. PATIENT HAS EXPRESSED UNDERSTANDING OF AND WAS IN AGREEMENT WITH TREATMENT PLAN. GIVEN TIME TO ASK QUESTIONS AND EXPRESS CONCERNS., ISTOP REGISTRY REVIEWED AND DEMONSTRATES COMPLLIANCE. (REF # [id number]) BRINGS IN MEDICATIONS WHICH IS APPROPRIATE FOR WHAT WAS DISPENSED. RECENT URINE TOXICOLOGY REVIEWED. NO UNAUTHORIZED MEDICATIONS. NO ILLICIT SUBSTANCES AND PRESCRIBED MEDICATIONS WERE PRESENT. PREVENTIVE MEDICINE PAIN CLINIC TEACHING: PROCEDURE TEACHING PRE SCREENING CALL DONE 01/19/20 EM. DISPOSITION & COMMUNICATION FOLLOW UP 4 WEEKS (REASON: BACK PAIN, NEW MEDICATION) ELECTRONICALLY SIGNED BY BALWINDER ATWOOD ON 01/21/2020 AT 01:39 PM EDT DISCLAIMER : THIS IS A VISIT SUMMARY EXTRACTED FROM THE [employer] CHART. IT IS NOT A COPY OF THE [employer] PROGRESS NOTE. FRANCESCA
== END ==
LOC: M PAIN 10:00
PROVIDERS: ATTEND Family Medicine
DX: M51.16 Intervertebral disc disorders with radiculopathy, lumbar region (principal); Z79.899 Other long term (current) drug therapy; Z87.891 Personal history of nicotine dependence; Z91.018 Allergy to other foods

== ENCOUNTER → 2020-02-17 | Outpatient (CLI) | payer OTHER ==
[~2020-02-17] MED LIST changes: +CETI-24 PO; +MONT10TA10; +OXYC1TAB15; +PREG100C; +TIZA6CAP
--- NOTE | 2020-02-19 01:32 | ECWPNPC ---
PATIENT NAME: JACKIE ANTHONY : 1985 GENDER: FEMALE VISIT DATE: 02/17/2020 DISCHARGE DATE: 02/17/20 1126 VISIT LOCKED DATE TIME: PHYSICIAN: DANN HOLLINS RESOURCE: DANN HOLLINS REASON FOR APPOINTMENT 1. BACK PAIN/NEW MED. PAT COMPLETED HISTORY OF PRESENT ILLNESS HISTORY OF PRESENT ILLNESS: PAIN THE PATIENT DESCRIBES THE PAINDURING THE LAST MONTH SEVERITY - PAIN SCORE OF7/10 LOCATIONSLOWER BACK RADIATES TO RIGHT LEG QUALITYSHARP, STABBING DURATIONCONTINUOUS, CONSTANT, ALL DAY, MAINLY DURING THE DAY PAIN IS INCREASED BY:ACTIVITIES PAIN IS DECREASED BY: STRETCHES REMISSION REQUESTED AND RECEIVED FROM PATIENT TO PERFORM TELEHEALTH VISIT. 35-YEAR-OLD FEMALE IN FOR CHRONIC PAIN FOLLOW-UP. AT LAST CLINIC VISIT SHE WAS STARTED ON TRAMADOL AND ADMITS TODAY THAT THIS HAS BEEN INEFFECTIVE IN REDUCING HER PAIN. SHE RATES HER PAIN CURRENTLY AT A 7 OUT OF 10 AND DESCRIBES IT SHARP, AND SHOOTING. FALL RISK SCREENING: SCREENING :ONE FALL WITH INJURY IN THE PAST YEAR RIGHT LEG GAVE OUT AND ENDED UP WITH SEVERE BRUISE ON RIGHT SIDE ABOUT 3 MONTHS AGO. CURRENT MEDICATIONS TAKING MELATONIN ER 10 MG TABLET EXTENDED RELEASE DIRECTED 2 TABLETS ORALLY NIGHTLY TAKING NORCO 10-325 MG TABLET 1 TABLET ORALLY EVERY 8 HRS PRN PAIN MDD=4 TAKING IBUPROFEN 200 MG #60 200 MG TABLETS 2-4 TABLETS ORALLY EVERY 6-8 HOURS TAKING TYLENOL 325 MG TABLET 1 TABLET NEEDED ORALLY EVERY 6 HRS TAKING METHOCARBAMOL 750 MG TABLET 1 TABLET ORALLY EVERY 8 HOURS TAKING CEFTIN 500 MG TABLET 1 TABLET ORALLY TWICE A DAY TAKING MECLIZINE HCL 25 MG TABLET 1 TABLET NEEDED ORALLY 3 TIMES A DAY TAKING PANTOPRAZOLE SODIUM 40 MG TABLET DELAYED RELEASE 1 TABLET ORALLY ONCE A DAY TAKING CETIRIZINE HCL 10 MG TABLET 1 TABLET ORALLY ONCE A DAY TAKING MONTELUKAST SODIUM 10 MG TABLET 1 TABLET ORALLY ONCE A DAY TAKING TRAZODONE HCL 150 MG TABLET 1 TABLET AT BEDTIME ORALLY ONCE A DAY TAKING COLACE 100 MG CAPSULE 1 CAPSULE NEEDED ORALLY ONCE A DAY TAKING TIZANIDINE HCL 4 MG TABLET 1 TABLET NEEDED ORALLY THREE TIMES A DAY NOT-TAKING GABAPENTIN 300 MG CAPSULE 3 CAPSULES ORALLY 3 TIMES A DAY NOT-TAKING DULOXETINE HCL 60 MG CAPSULE DELAYED RELEASE PARTICLES 1 CAPSULE ORALLY ONCE A DAY NOT-TAKING LYRICA 200 MG CAPSULE 1 CAPSULE ORALLY THREE TIMES DAILY (PAIN CLINIC) NOT-TAKING LYRICA 200 MG CAPSULE 1 CAPSULE ORALLY THREE A DAY MDD=3 NOT-TAKING CUSTOM DO NO USE MORPHINE IR 15 MG DIRECTED FOUR TIMES DAILY NEEDED (PAIN CLINIC) NOT-TAKING SKELAXIN 800 MG TABLET 1 TABLET ORALLY THREE TO FOUR TIMES A DAY (PAIN CLINIC) NOT-TAKING TIZANIDINE HCL 8 MG TABLET 1 TABLET NEEDED ORALLY EVERY 8 HRS (PAIN CLINIC), NOTES: DPLICATE NOT-TAKING FLINTSTONES COMPLETE - TABLET CHEWABLE DIRECTED 2 TABLETS ORALLY DAILY NOT-TAKING TRAMADOL HCL 50 MG TABLET 1 TABLET NEEDED ORALLY ONCE A DAY, NOTES: NOT WORKING MEDICATION LIST REVIEWED AND RECONCILED WITH THE PATIENT PAST MEDICAL HISTORY CHRONIC R KNEE PAIN LUMBAR DEGENERATIVE DISC DZ/HERNIATION MIGRAINES RLS INSOMNIA HEARING LOSS FROM NOISE EXPOSURE IN THE ARMY LEFT WORSE THAN RIGHT KIDNEY STONES MYOPIA FIBROMYALGIA COSTOCHONDRITIS OSTEOARTHRITIS ENDOMETRIOSIS ALLERGIES HONEY: THROAT CLOSES OFF - ALLERGY SURGICAL HISTORY TONSILLECTOMY CHILD 2009 CHOLECYSTECTOMY 11/2015 LEFT WRIST RESET AFTER FRACTURES 04/2002 DORSAL COLUMN STIMULATOR 07/2018 FAMILY HISTORY FATHER: ALIVE, DIAGNOSED WITH DIABETES MOTHER: ALIVE, NO KNOWN MEDICAL PROBLEMS SIBLINGS: ALIVE 22 YRS MATERNAL GRAND MOTHER: ALIVE, BREAST AND LUNG CANCER 1 BROTHER(S) - HEALTHY. 2 SON(S) - HEALTHY. NO KNOWN FAMILY HISTORY OF ANY UROLOGICALLY RELATED DISEASES/CANCERS. SOCIAL HISTORY GENERAL: TOBACCO USE ARE YOU A:FORMER SMOKER HOW LONG HAS IT BEEN SINCE YOU LAST SMOKED?6-12 MONTHS VAPORYES E-CIGARETTEYES IN PROCESS OF QUITTING LATEX QUESTIONNAIRE LATEX ALLERGY : HAVE YOU EVER DEVELOPED ANY TYPE OF REACTION AFTER HANDLING LATEX PRODUCTS SUCH RUBBER GLOVES, CONDOMS, DIAPHRAGMS, BALLOONS, SOCKS, OR UNDERWEAR?NO LATEX ALLERGY : HAVE YOU EVER DEVELOPED ANY TYPE OF REACTION DURING OR AFTER DENTAL APPOINTMENT, VAGINAL/RECTAL EXAMINATION, SURGICAL PROCEDURE, OR ANY OTHER EXPOSURE?NO DATE ASKED : 12/15/2019 LATEX RISK : HAVE YOU EVER HAD ANY DIFFICULTY BREATHING OR HIVES AFTER EATING OR HANDLING ANY FRUITS, OR VEGETABLES; SUCH KIWI, BANANAS, STONE FRUITS, OR CHESTNUTSNO LATEX RISK : DO YOU HAVE A PREVIOUS PERSONAL HISTORY OF MORE THAN NINE SURGERIES, SPINA BIFIDA, OR REPEATED CATHERIZATIONS? NO LATEX RISK : ARE YOU FREQUENTLY EXPOSED TO LATEX PRODUCTS IN YOUR OCCUPATION?NO ALCOHOL SCREENING DID YOU HAVE A DRINK CONTAINING ALCOHOL IN THE PAST YEAR?NO POINTS0 INTERPRETATIONNEGATIVE RECREATIONAL DRUG USE DRUG USE?NO DENIES ABUSE OR MISUSE OF MEDICATIONS. DENIES USE OF MARIJUANA OR COCAINE. CAFFEINE CAFFEINE USE?YES HOW OFTEN AND HOW MUCH? 2/DAY COFFEE HIV / HEP-C SCREENING HIV TEST OFFERED TO PATIENT:YES DATE OFFERED:10/10/2018 TEST ACCEPTED:NO HEP-C TEST OFFERED TO PATIENT:NO REASON:PATIENT DECLINED BROCHURE PROVIDED TO PATIENTNO BAPTIST [id number] NONE LANGUAGE LANGUAGES SPOKEN:[place]HAWK EDUCATION LEVEL OF EDUCATION:COLLEGE LEARNING BARRIERS / SPECIAL NEEDS BARRIERS TO LEARNING?NO HEARING IMPAIRED?YES : ABLE TO HEAR WITHOUT ASSISTIVE DEVICE VISION IMPAIRED?NO COGNITIVELY IMPAIRED?NO READINESS TO LEARN?YES LEARNING PREFERENCES?NO LEARNING CAPABILITIES PRESENT?YES EMOTIONAL BARRIERS?NO SPECIAL DEVICES?NO COOK FRY NEEDED?NO DOMESTIC VIOLENCE DO YOU FEEL SAFE IN YOUR ENVIRONMENT?YES 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 [employer] DIET: REGULAR. 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 MARITAL STATUS: . OTHERS AT HOME: YES. NEW PATIENT PAIN DIARY PATIENT DESCRIBES PAIN :HAVE IT ALL THE TIME, STABBING FROM 0-10, WHAT LEVEL IS YOUR PAIN TODAY?6 PRECIPITATING FACTORS STANDING ALLEVIATING FACTORS ELEVATION OF LEGS IMPACT ON FUNCTION YES PAIN CLINIC PFS, CLERGY, PUBLIC HEALTH REFERRALS PFS REFERRAL NEEDED?NO CLERGY REFERRAL NEEDED?NO PUBLIC HEALTH REFERRAL NEEDED?NO HAS THE PATIENT BEEN EDUCATED REGARDING HIS/HER PLAN OF CARE?YES HAS THE PATIENT BEEN EDUCATED REGARDING PAIN, THE RISK FOR PAIN, THE IMPORTANCE OF EFFECTIVE PAIN MANAGEMENT, AND THE PAIN ASSESSMENT PROCESS?YES HOUSING: HOUSE. ADVANCE DIRECTIVE ADVANCE DIRECTIVE DISCUSSED WITH PATIENT:YES PATIENT HAS NO ADVANCED DIRECTIVES AND HCP INFORMATION OFFERED AND DECLINED. REVIEWED WITH PATIENT 12/15/2019 1045 JS. HOSPITALIZATION/MAJOR DIAGNOSTIC PROCEDURE CHILDBIRTH [birth year] REVIEW OF SYSTEMS REVIEWED BY: PROVIDER: ROCKY HOLLINS SYSTEMS SOFTWARE ENGINEER-C . CONSTITUTIONAL: ANY CHANGE IN YOUR MEDICAL CONDITION? NO . CHILLS NO . FEVER NO . INFECTION: DO YOU HAVE NEW INFECTIONS? NO . DO YOU HAVE HISTORY OF MRSA? NO . MUSCULOSKELETAL: ANY NEW PATTERNS OF PAIN OR NUMBNESS? NO . GASTROENTEROLOGY: ANY NEW CHANGE IN BOWEL CONTROL? NO . GENITOURINARY: ANY NEW CHANGE IN BLADDER CONTROL? NO . IS THERE A CHANCE YOU COULD BE ? NO . HEMATOLOGY/LYMPH: DO YOU TAKE ANY BLOOD THINNERS? (FOR EXAMPLE- COUMADIN, PLAVIX, AGGRENOX, PLATEL, PRADAXA, OR XARELTO) NO . WHEN WAS YOUR LAST DOSE? DATE: TIME: . NEUROLOGY: HAVE YOU FALLEN IN THE PAST 12 MONTHS? YES,RIGHT LEG GAVE OUT AND ENDED UP WITH SEVERE BRUISE ON RIGHT SIDE ABOUT 3 MONTHS AGO. . ANY NEW EXTREMITY NUMBNESS OR WEAKNESS? NO . CARDIOLOGY: DO YOU HAVE A PACEMAKER OR DEFIBRILLATOR? NO . RESPIRATORY: HAVE YOU BEEN SICK IN THE PAST WEEK? NO . FEVER NO . FLU LIKE SYMPTOMS? NO . COUGH NO . INTEGUMENTARY: DO YOU HAVE ANY RASHES OR OPEN SORES? NO . ALLERGIC/IMMUNO: ARE YOU ALLERGIC TO IV DYE? NO . ANY NEW ALLERGIES? NO . PSYCHIATRIC: DO YOU HAVE THOUGHTS OF HURTING YOURSELF OR SOMEONE ELSE? NO . ARE YOU ABUSED, NEGLECTED, OR IN AN UNSAFE ENVIRONMENT? NO . ENDOCRINOLOGY: ARE YOU DIABETIC? NO . OTHER: DO YOU NEED ANY PRESCRIPTIONS? NO . IF YES, PLEASE LIST: ____ . ANY NEW PROBLEMS WITH YOUR MEDICATIONS? YES, TRAMADOL NOT WORKING. PT. STOPPED TAKING IT 02/16/20 . WHEN DID YOU LAST EAT? ____ . WHEN DID YOU LAST DRINK? ____ . WHAT DID YOU LAST DRINK? ____ . NAME OF PERSON DRIVING YOU HOME? ____ . DO YOU HAVE ANY OTHER QUESTIONS OR CONCERNS NO . EXAMINATION GENERAL EXAMINATION: GENERALNO ACUTE DISTRESS, WELL NOURISHED AND HYDRATED. PSYCHAPPROPRIATE MOOD AND AFFECT , ORIENTED X 3. ASSESSMENTS LUMBAR DISC DISEASE WITH RADICULOPATHY - M51.16 (PRIMARY) TREATMENT LUMBAR DISC DISEASE WITH RADICULOPATHY START NORCO TABLET, 5-325 MG, 1 TABLET NEEDED, ORALLY, DAILY PRN, 30 DAYS, 30 REFILL GABAPENTIN CAPSULE, 300 MG, 3 CAPSULES, ORALLY, 3 TIMES A DAY, 30 DAYS, 270 CAPSULE STOP TRAMADOL HCL TABLET, 50 MG, 1 TABLET NEEDED, ORALLY, ONCE A DAY, NOTES: NOT WORKING CLINICAL NOTES: 35-YEAR-OLD FEMALE IN FOR CHRONIC PAIN FOLLOW-UP. GIVEN PRESENTING SYMPTOMS RECOMMEND STOPPING TRAMADOL AND STARTING NORCO 1 TABLET DAILY NEEDED FOR PAIN FURTHER RECOMMEND GABAPENTIN 300 MG 3 TIMES A DAY WITH FOLLOW-UP IN ONE MONTH TO DETERMINE EFFICACY OF TREATMENT. PATIENT HAS EXPRESSED UNDERSTANDING OF AND WAS IN AGREEMENT WITH TREATMENT PLAN. GIVEN TIME TO ASK QUESTIONS AND EXPRESS CONCERNS. , ISTOP REGISTRY REVIEWED AND DEMONSTRATES COMPLLIANCE. (REF # [id number] ) BRINGS IN MEDICATIONS WHICH IS APPROPRIATE FOR WHAT WAS DISPENSED. RECENT URINE TOXICOLOGY REVIEWED. NO UNAUTHORIZED MEDICATIONS. NO ILLICIT SUBSTANCES AND PRESCRIBED MEDICATIONS WERE PRESENT. TELEHEALTH VISIT PERFORMED VIA ZOOM. TIME SPENT WITH PATIENT 5 MINUTES. OTHERS NOTES: VITALS NOT OBTAINED DUE TO VIRTUAL VISIT, PRE SCREENING COMPLETED 02/16/20 NA. DISPOSITION & COMMUNICATION FOLLOW UP 4 WEEKS (REASON: BACK PAIN, NEW MEDICATION) ELECTRONICALLY SIGNED BY BALWINDER ATWOOD ON 02/18/2020 AT 08:47 AM EDT DISCLAIMER : THIS IS A VISIT SUMMARY EXTRACTED FROM THE [employer] CHART. IT IS NOT A COPY OF THE [employer] PROGRESS NOTE. FRANCESCA
== END ==
LOC: M PAIN 09:30 → M TMPAIN 09:30
PROVIDERS: ATTEND Family Medicine
DX: M51.16 Intervertebral disc disorders with radiculopathy, lumbar region (principal); Z79.891 Long term (current) use of opiate analgesic; Z79.899 Other long term (current) drug therapy; Z87.891 Personal history of nicotine dependence; Z91.018 Allergy to other foods

== ENCOUNTER → 2020-03-16 | Outpatient (CLI) | payer OTHER ==
[~2020-03-16] MED LIST changes: -CETI-24 PO; -MONT10TA10; -OXYC1TAB15; -PREG100C; -TIZA6CAP
--- NOTE | 2020-03-18 03:21 | ECWPNPC ---
PATIENT NAME: JACKIE ANTHONY : 1985 GENDER: FEMALE VISIT DATE: 03/16/2020 DISCHARGE DATE: 03/16/20 1034 VISIT LOCKED DATE TIME: PHYSICIAN: DANN HOLLINS RESOURCE: DANN HOLLINS REASON FOR APPOINTMENT 1. BACK PAIN, NEW MEDICATION- IN OFFICE VISIT HISTORY OF PRESENT ILLNESS GENERAL: - 35-YEAR-OLD FEMALE IN FOR CHRONIC PAIN FOLLOW-UP. AT LAST CLINIC VISIT PATIENT WAS STARTED ON NORCO AND SHE ADMITS TODAY THAT IT MAY BE HELPFUL HOWEVER IT DOES NOT LAST. SHE RATES HER PAIN CURRENTLY AT A 7 OUT OF 10 AND DESCRIBES IT BURNING. PAIN SCREENING: PATIENT HAS A COMPLAINT OF ACUTE OR CHRONIC PAIN :YES LOCATION OF PAIN:LOW BACK, LEG(S) RADIATES DOWN RIGHT LEG INTENSITY OF PAIN (SCALE OF 1 TO 10):7 WHAT DOES YOUR PAIN FEEL LIKE:BURNING DURATION:CONTINOUS, CONSTANT, ALL DAY PAIN IS INCREASED BY:ACTIVITIES, PROLONGED STANDING SITTING , WALKING PAIN IS DECREASED BY:USE OF PAIN MEDICATIONS HOT/COLD PACKS PAIN HAS INTERFERED WITH THE FOLLOWING:BATHING/DRESSING, MOOD, HOUSEWORK, SLEEP, RELATIONSHIP WITH OTHERS, ENJOYMENT OF LIFE PLAN/GOALS/TREATMENT/INTERVENTION/FOLLOW UP:SEE PLAN FALL RISK SCREENING: SCREENING :ONE FALL WITHOUT INJURY IN THE PAST YEAR RIGHT KNEE GAVE OUT AND SHE FELL DEPRESSION SCREENING: PHQ-2 (2015 EDITION) LITTLE INTEREST OR PLEASURE IN DOING THINGS?NOT AT ALL FEELING DOWN, DEPRESSED, OR HOPELESS?NOT AT ALL TOTAL SCORE0 NURSING NOTE: -. PAIN CENTER INTAKE QUESTIONS: DO YOU HAVE A HISTORY OF MRSA? :NO DO YOU TAKE A BLOOD THINNERS? :NO DO YOU HAVE ANY BLEEDING DISORDERS? :NO ANY NEW NUMBNESS OR WEAKNESS IN YOUR LEGS OR ARMS? :NO ANY PACEMAKER,DEFIBRILLATOR, OR DORSAL COLUMN STIMULATOR? :NO DO YOU HAVE ANY RASHES OR OPEN SORES? :NO ARE YOU ALLERGIC TO IV DYE? :NO ARE YOU DIABETIC? :NO ANY NEW PROBLEMS WITH YOUR MEDICATIONS? :NO HAVE YOU RECEIVED A VACCINE IN THE PAST 30 DAYS? :NO DO YOU PLAN TO RECEIVE A VACCINE IN THE NEXT 21 DAYS? :NO DO YOU NEED ANY PRESCRIPTION? :NO DO YOU TAKE ANY IMMUNOSUPPRESSIVE MEDICATIONS? :NO CURRENT MEDICATIONS TAKING MELATONIN ER 10 MG TABLET EXTENDED RELEASE DIRECTED 2 TABLETS ORALLY NIGHTLY TAKING IBUPROFEN 200 MG #60 200 MG TABLETS 2-4 TABLETS ORALLY EVERY 6-8 HOURS TAKING TYLENOL 325 MG TABLET 1 TABLET NEEDED ORALLY EVERY 6 HRS TAKING METHOCARBAMOL 750 MG TABLET 1 TABLET ORALLY EVERY 8 HOURS TAKING CEFTIN 500 MG TABLET 1 TABLET ORALLY TWICE A DAY TAKING MECLIZINE HCL 25 MG TABLET 1 TABLET NEEDED ORALLY 3 TIMES A DAY TAKING PANTOPRAZOLE SODIUM 40 MG TABLET DELAYED RELEASE 1 TABLET ORALLY ONCE A DAY TAKING CETIRIZINE HCL 10 MG TABLET 1 TABLET ORALLY ONCE A DAY TAKING MONTELUKAST SODIUM 10 MG TABLET 1 TABLET ORALLY ONCE A DAY TAKING TRAZODONE HCL 150 MG TABLET 1 TABLET AT BEDTIME ORALLY ONCE A DAY TAKING COLACE 100 MG CAPSULE 1 CAPSULE NEEDED ORALLY ONCE A DAY TAKING TIZANIDINE HCL 4 MG TABLET 1 TABLET NEEDED ORALLY THREE TIMES A DAY TAKING NORCO 5-325 MG TABLET 1 TABLET NEEDED ORALLY DAILY PRN TAKING GABAPENTIN 300 MG CAPSULE 3 CAPSULES ORALLY 3 TIMES A DAY NOT-TAKING DULOXETINE HCL 60 MG CAPSULE DELAYED RELEASE PARTICLES 1 CAPSULE ORALLY ONCE A DAY NOT-TAKING LYRICA 200 MG CAPSULE 1 CAPSULE ORALLY THREE TIMES DAILY (PAIN CLINIC) NOT-TAKING LYRICA 200 MG CAPSULE 1 CAPSULE ORALLY THREE A DAY MDD=3 NOT-TAKING CUSTOM DO NO USE MORPHINE IR 15 MG DIRECTED FOUR TIMES DAILY NEEDED (PAIN CLINIC) NOT-TAKING SKELAXIN 800 MG TABLET 1 TABLET ORALLY THREE TO FOUR TIMES A DAY (PAIN CLINIC) NOT-TAKING TIZANIDINE HCL 8 MG TABLET 1 TABLET NEEDED ORALLY EVERY 8 HRS (PAIN CLINIC), NOTES: DPLICATE NOT-TAKING FLINTSTONES COMPLETE - TABLET CHEWABLE DIRECTED 2 TABLETS ORALLY DAILY MEDICATION LIST REVIEWED AND RECONCILED WITH THE PATIENT PAST MEDICAL HISTORY CHRONIC R KNEE PAIN LUMBAR DEGENERATIVE DISC DZ/HERNIATION MIGRAINES RLS INSOMNIA HEARING LOSS FROM NOISE EXPOSURE IN THE ARMY LEFT WORSE THAN RIGHT KIDNEY STONES MYOPIA FIBROMYALGIA COSTOCHONDRITIS OSTEOARTHRITIS ENDOMETRIOSIS ALLERGIES HONEY: THROAT CLOSES OFF - ALLERGY SURGICAL HISTORY TONSILLECTOMY CHILD 2009 CHOLECYSTECTOMY 11/2015 LEFT WRIST RESET AFTER FRACTURES 04/2002 DORSAL COLUMN STIMULATOR 07/2018 FAMILY HISTORY FATHER: ALIVE, DIAGNOSED WITH DIABETES MOTHER: ALIVE, NO KNOWN MEDICAL PROBLEMS SIBLINGS: ALIVE 22 YRS MATERNAL GRAND MOTHER: ALIVE, BREAST AND LUNG CANCER 1 BROTHER(S) - HEALTHY. 2 SON(S) - HEALTHY. NO KNOWN FAMILY HISTORY OF ANY UROLOGICALLY RELATED DISEASES/CANCERS. SOCIAL HISTORY GENERAL: TOBACCO USE ARE YOU A:FORMER SMOKER HOW LONG HAS IT BEEN SINCE YOU LAST SMOKED?6-12 MONTHS VAPORYES E-CIGARETTEYES IN PROCESS OF QUITTING LATEX QUESTIONNAIRE LATEX ALLERGY : HAVE YOU EVER DEVELOPED ANY TYPE OF REACTION AFTER HANDLING LATEX PRODUCTS SUCH RUBBER GLOVES, CONDOMS, DIAPHRAGMS, BALLOONS, SOCKS, OR UNDERWEAR?NO LATEX ALLERGY : HAVE YOU EVER DEVELOPED ANY TYPE OF REACTION DURING OR AFTER DENTAL APPOINTMENT, VAGINAL/RECTAL EXAMINATION, SURGICAL PROCEDURE, OR ANY OTHER EXPOSURE?NO LATEX RISK : HAVE YOU EVER HAD ANY DIFFICULTY BREATHING OR HIVES AFTER EATING OR HANDLING ANY FRUITS, OR VEGETABLES; SUCH KIWI, BANANAS, STONE FRUITS, OR CHESTNUTSNO LATEX RISK : DO YOU HAVE A PREVIOUS PERSONAL HISTORY OF MORE THAN NINE SURGERIES, SPINA BIFIDA, OR REPEATED CATHERIZATIONS? NO LATEX RISK : ARE YOU FREQUENTLY EXPOSED TO LATEX PRODUCTS IN YOUR OCCUPATION?NO DATE ASKED : 03/16/2020 ALCOHOL SCREENING DID YOU HAVE A DRINK CONTAINING ALCOHOL IN THE PAST YEAR?NO POINTS0 INTERPRETATIONNEGATIVE RECREATIONAL DRUG USE DRUG USE?NO DENIES ABUSE OR MISUSE OF MEDICATIONS. DENIES USE OF MARIJUANA OR COCAINE. CAFFEINE CAFFEINE USE?YES HOW OFTEN AND HOW MUCH? 2/DAY COFFEE HIV / HEP-C SCREENING HIV TEST OFFERED TO PATIENT:YES DATE OFFERED:10/10/2018 TEST ACCEPTED:NO HEP-C TEST OFFERED TO PATIENT:NO REASON:PATIENT DECLINED BROCHURE PROVIDED TO PATIENTNO BAPTIST [id number] NONE LANGUAGE LANGUAGES SPOKEN:[place]ORE[place] EDUCATION LEVEL OF EDUCATION:COLLEGE LEARNING BARRIERS / SPECIAL NEEDS BARRIERS TO LEARNING?NO HEARING IMPAIRED?YES VISION IMPAIRED?NO COGNITIVELY IMPAIRED?NO : ABLE TO HEAR WITHOUT ASSISTIVE DEVICE READINESS TO LEARN?YES LEARNING PREFERENCES?NO LEARNING CAPABILITIES PRESENT?YES EMOTIONAL BARRIERS?NO SPECIAL DEVICES?NO CAMPAIGN MARKETING SPECIALIST NEEDED?NO DOMESTIC VIOLENCE DO YOU FEEL SAFE IN YOUR ENVIRONMENT?YES 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 [employer].. DIET: REGULAR. 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 MARITAL STATUS: . OTHERS AT HOME: YES. NEW PATIENT PAIN DIARY PATIENT DESCRIBES PAIN :HAVE IT ALL THE TIME, STABBING FROM 0-10, WHAT LEVEL IS YOUR PAIN TODAY?6 PRECIPITATING FACTORS STANDING ALLEVIATING FACTORS ELEVATION OF LEGS IMPACT ON FUNCTION YES PAIN CLINIC PFS, CLERGY, PUBLIC HEALTH REFERRALS PFS REFERRAL NEEDED?NO CLERGY REFERRAL NEEDED?NO PUBLIC HEALTH REFERRAL NEEDED?NO HAS THE PATIENT BEEN EDUCATED REGARDING HIS/HER PLAN OF CARE?YES HAS THE PATIENT BEEN EDUCATED REGARDING PAIN, THE RISK FOR PAIN, THE IMPORTANCE OF EFFECTIVE PAIN MANAGEMENT, AND THE PAIN ASSESSMENT PROCESS?YES HOUSING: HOUSE. ADVANCE DIRECTIVE ADVANCE DIRECTIVE DISCUSSED WITH PATIENT:YES PATIENT HAS NO ADVANCED DIRECTIVES AND HCP INFORMATION OFFERED AND DECLINED. HOSPITALIZATION/MAJOR DIAGNOSTIC PROCEDURE CHILDBIRTH [birth year] REVIEW OF SYSTEMS CONSTITUTIONAL: ANY RECENT FEVER OR ILLNESS NO . CHILLS NO . GASTROENTEROLOGY: BOWEL INCONTINENCE NO . ANY NEW CHANGE IN BOWEL CONTROL? NO . ABDOMINAL PAIN NO . CONSTIPATION NO . GENITOURINARY: ANY NEW CHANGE IN BLADDER CONTROL? NO . URINARY INCONTINENCE NO . CARDIOLOGY: CHEST PRESSURE NO . CHEST PAIN NO . RESPIRATORY: COUGH NO . SHORTNESS OF BREATH NO . VITAL SIGNS WT 136.8 LBS, HT 65 IN, BMI 22.76 INDEX, BP 111/56 MM HG, HR 70 /MIN, RR 18 /MIN, TEMP 99.0 F, OXYGEN SAT % 100%, SAFE IN ENV? 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 EXAMINATION GENERAL EXAMINATION: GENERALNO ACUTE DISTRESS, WELL NOURISHED AND HYDRATED. PSYCHAPPROPRIATE MOOD AND AFFECT . LUNGS:CLEAR TO AUSCULTATION BILATERALLY, NO WHEEZES, RHONCHI, RALES. HEART:NO MURMURS, REGULAR RATE AND RHYTHM. ASSESSMENTS LUMBAR DISC DISEASE WITH RADICULOPATHY - M51.16 (PRIMARY) TREATMENT LUMBAR DISC DISEASE WITH RADICULOPATHY INCREASE TIZANIDINE HCL CAPSULE, 6 MG, 1 TABLET NEEDED, ORALLY, THREE TIMES A DAY, 30 DAYS, 90 INCREASE NORCO TABLET, 5-325 MG, 1 TABLET NEEDED, ORALLY, EVERY 12 HRS NEEDED, 30 DAYS, 60 STOP GABAPENTIN CAPSULE, 300 MG, 3 CAPSULES, ORALLY, 3 TIMES A DAY START LYRICA CAPSULE, 75 MG, 1 CAPSULE, ORALLY, TWICE DAILY, 30 DAYS, 60 CLINICAL NOTES: 35-YEAR-OLD FEMALE IN FOR CHRONIC PAIN FOLLOW-UP. GIVEN PRESENTING SYMPTOMS RECOMMEND INCREASING TIZANIDINE TO 6 MG 3 TIMES A DAY, INCREASING NORCO TO TWICE A DAY DOSING, STOPPING GABAPENTIN, AND STARTING LYRICA 75 MG TWICE A DAY WITH FOLLOW-UP IN ONE MONTH TO DETERMINE EFFICACY OF TREATMENT. DISCUSSED TAPERING DOSE OF GABAPENTIN WITH PATIENT AND SHE WAS INSTRUCTED TO TAKE 1 CAPSULE TWICE A DAY FOR 1 WEEK THEN 1 CAPSULE DAILY FOR 1 WEEK, THEN 1 CAPSULE EVERY OTHER DAY FOR 1 WEEK, AND THEN STOP. PATIENT HAS EXPRESSED UNDERSTANDING OF AND WAS IN AGREEMENT WITH TREATMENT PLAN. GIVEN TIME TO ASK QUESTIONS AND EXPRESS CONCERNS. , ISTOP REGISTRY REVIEWED AND DEMONSTRATES COMPLLIANCE. (REF # [id number] ) BRINGS IN MEDICATIONS WHICH IS APPROPRIATE FOR WHAT WAS DISPENSED. RECENT URINE TOXICOLOGY REVIEWED. NO UNAUTHORIZED MEDICATIONS. NO ILLICIT SUBSTANCES AND PRESCRIBED MEDICATIONS WERE PRESENT. PROCEDURE CODES FA211 ESTABILISHED PATIENT [facility] CHARGE DISPOSITION & COMMUNICATION FOLLOW UP 4 WEEKS (REASON: BACK PAIN ) ELECTRONICALLY SIGNED BY BALWINDER ATWOOD ON 03/17/2020 AT 08:13 AM EDT DISCLAIMER : THIS IS A VISIT SUMMARY EXTRACTED FROM THE [employer] CHART. IT IS NOT A COPY OF THE [employer] PROGRESS NOTE. FRANCESCA
== END ==
LOC: M PAIN 10:00
PROVIDERS: ATTEND Family Medicine
DX: M51.16 Intervertebral disc disorders with radiculopathy, lumbar region (principal); Z79.891 Long term (current) use of opiate analgesic; Z79.899 Other long term (current) drug therapy; Z87.891 Personal history of nicotine dependence; Z91.030 Bee allergy status

== ENCOUNTER → 2020-04-14 | Outpatient (CLI) | payer OTHER ==
--- NOTE | 2020-04-16 04:09 | ECWPNPC ---
PATIENT NAME: JACKIE ANTHONY : 1985 GENDER: FEMALE VISIT DATE: 04/14/2020 DISCHARGE DATE: 04/14/20 1041 VISIT LOCKED DATE TIME: PHYSICIAN: DANN HOLLINS RESOURCE: DANN HOLLINS REASON FOR APPOINTMENT 1. BACK PAIN [phone] PAT DONE HISTORY OF PRESENT ILLNESS GENERAL: PERMISSION REQUESTED AND RECEIVED FROM PATIENT TO PERFORM TELEPHONE VISIT.- 35-YEAR-OLD FEMALE IN FOR CHRONIC PAIN FOLLOW-UP. SHE RATES HER PAIN CURRENTLY AT A 6 OUT OF 10. AT LAST CLINIC VISIT PATIENT WAS STARTED ON LYRICA AND TIZANIDINE WAS INCREASED AND SHE FEELS BOTH MEDICATIONS ARE BENEFICIAL. HOWEVER THE NORCO STILL IS NOT HELPING TO CONTROL HER PAIN. FALL RISK SCREENING: SCREENING :ONE FALL WITHOUT INJURY IN THE PAST YEAR PAIN SCREENING: PATIENT HAS A COMPLAINT OF ACUTE OR CHRONIC PAIN :YES LOCATION OF PAIN:LOW BACK, LEFT HIP, RIGHT HIP INTENSITY OF PAIN (SCALE OF 1 TO 10):6 WHAT DOES YOUR PAIN FEEL LIKE:SHARP, STABBING DURATION:CONTINOUS, CONSTANT, ALL DAY PAIN IS INCREASED BY:ACTIVITIES, PROLONGED STANDING PAIN IS DECREASED BY:USE OF PAIN MEDICATIONS PAIN HAS INTERFERED WITH THE FOLLOWING:MOOD, HOUSEWORK, RELATIONSHIP WITH OTHERS, ENJOYMENT OF LIFE PLAN/GOALS/TREATMENT/INTERVENTION/FOLLOW UP:SEE PLAN NURSING NOTE: -. PAIN CENTER INTAKE QUESTIONS: DO YOU HAVE A HISTORY OF MRSA? :NO DO YOU TAKE A BLOOD THINNERS? :NO DO YOU HAVE ANY BLEEDING DISORDERS? :NO ANY NEW NUMBNESS OR WEAKNESS IN YOUR LEGS OR ARMS? :NO ANY PACEMAKER,DEFIBRILLATOR, OR DORSAL COLUMN STIMULATOR? :NO DO YOU HAVE ANY RASHES OR OPEN SORES? :NO ARE YOU ALLERGIC TO IV DYE? :NO ARE YOU DIABETIC? :NO ANY NEW PROBLEMS WITH YOUR MEDICATIONS? :NO HAVE YOU RECEIVED A VACCINE IN THE PAST 30 DAYS? :NO DO YOU PLAN TO RECEIVE A VACCINE IN THE NEXT 21 DAYS? :NO DO YOU NEED ANY PRESCRIPTION? :YES LYRICA, HYDROCODONE, TIZANIDINE DO YOU TAKE ANY IMMUNOSUPPRESSIVE MEDICATIONS? :NO IS THERE A CHANCE YOU COULD BE ? :NO ARE YOU BREAST FEEDING? :NO CURRENT MEDICATIONS TAKING MELATONIN ER 10 MG TABLET EXTENDED RELEASE DIRECTED 2 TABLETS ORALLY NIGHTLY TAKING IBUPROFEN 200 MG #60 200 MG TABLETS 2-4 TABLETS ORALLY EVERY 6-8 HOURS TAKING TYLENOL 325 MG TABLET 1 TABLET NEEDED ORALLY EVERY 6 HRS TAKING METHOCARBAMOL 750 MG TABLET 1 TABLET ORALLY EVERY 8 HOURS TAKING CEFTIN 500 MG TABLET 1 TABLET ORALLY TWICE A DAY TAKING MECLIZINE HCL 25 MG TABLET 1 TABLET NEEDED ORALLY 3 TIMES A DAY TAKING PANTOPRAZOLE SODIUM 40 MG TABLET DELAYED RELEASE 1 TABLET ORALLY ONCE A DAY TAKING CETIRIZINE HCL 10 MG TABLET 1 TABLET ORALLY ONCE A DAY TAKING MONTELUKAST SODIUM 10 MG TABLET 1 TABLET ORALLY ONCE A DAY TAKING TRAZODONE HCL 150 MG TABLET 1 TABLET AT BEDTIME ORALLY ONCE A DAY TAKING COLACE 100 MG CAPSULE 1 CAPSULE NEEDED ORALLY ONCE A DAY TAKING TIZANIDINE HCL 6 MG CAPSULE 1 TABLET NEEDED ORALLY THREE TIMES A DAY TAKING NORCO 5-325 MG TABLET 1 TABLET NEEDED ORALLY EVERY 12 HRS NEEDED TAKING LYRICA 75 MG CAPSULE 1 CAPSULE ORALLY TWICE DAILY NOT-TAKING DULOXETINE HCL 60 MG CAPSULE DELAYED RELEASE PARTICLES 1 CAPSULE ORALLY ONCE A DAY NOT-TAKING LYRICA 200 MG CAPSULE 1 CAPSULE ORALLY THREE TIMES DAILY (PAIN CLINIC) NOT-TAKING LYRICA 200 MG CAPSULE 1 CAPSULE ORALLY THREE A DAY MDD=3 NOT-TAKING CUSTOM DO NO USE MORPHINE IR 15 MG DIRECTED FOUR TIMES DAILY NEEDED (PAIN CLINIC) NOT-TAKING SKELAXIN 800 MG TABLET 1 TABLET ORALLY THREE TO FOUR TIMES A DAY (PAIN CLINIC) NOT-TAKING TIZANIDINE HCL 8 MG TABLET 1 TABLET NEEDED ORALLY EVERY 8 HRS (PAIN CLINIC), NOTES: DPLICATE NOT-TAKING FLINTSTONES COMPLETE - TABLET CHEWABLE DIRECTED 2 TABLETS ORALLY DAILY MEDICATION LIST REVIEWED AND RECONCILED WITH THE PATIENT PAST MEDICAL HISTORY CHRONIC R KNEE PAIN LUMBAR DEGENERATIVE DISC DZ/HERNIATION MIGRAINES RLS INSOMNIA HEARING LOSS FROM NOISE EXPOSURE IN THE ARMY LEFT WORSE THAN RIGHT KIDNEY STONES MYOPIA FIBROMYALGIA COSTOCHONDRITIS OSTEOARTHRITIS ENDOMETRIOSIS ALLERGIES HONEY: THROAT CLOSES OFF - ALLERGY SURGICAL HISTORY TONSILLECTOMY CHILD 2009 CHOLECYSTECTOMY 11/2015 LEFT WRIST RESET AFTER FRACTURES 04/2002 DORSAL COLUMN STIMULATOR 07/2018 FAMILY HISTORY FATHER: ALIVE, DIAGNOSED WITH DIABETES MOTHER: ALIVE, NO KNOWN MEDICAL PROBLEMS SIBLINGS: ALIVE 22 YRS MATERNAL GRAND MOTHER: ALIVE, BREAST AND LUNG CANCER 1 BROTHER(S) - HEALTHY. 2 SON(S) - HEALTHY. NO KNOWN FAMILY HISTORY OF ANY UROLOGICALLY RELATED DISEASES/CANCERS. SOCIAL HISTORY GENERAL: TOBACCO USE ARE YOU A:FORMER SMOKER HOW LONG HAS IT BEEN SINCE YOU LAST SMOKED?6-12 MONTHS VAPORYES E-CIGARETTEYES IN PROCESS OF QUITTING LATEX QUESTIONNAIRE LATEX ALLERGY : HAVE YOU EVER DEVELOPED ANY TYPE OF REACTION AFTER HANDLING LATEX PRODUCTS SUCH RUBBER GLOVES, CONDOMS, DIAPHRAGMS, BALLOONS, SOCKS, OR UNDERWEAR?NO LATEX ALLERGY : HAVE YOU EVER DEVELOPED ANY TYPE OF REACTION DURING OR AFTER DENTAL APPOINTMENT, VAGINAL/RECTAL EXAMINATION, SURGICAL PROCEDURE, OR ANY OTHER EXPOSURE?NO DATE ASKED : 03/16/2020 LATEX RISK : HAVE YOU EVER HAD ANY DIFFICULTY BREATHING OR HIVES AFTER EATING OR HANDLING ANY FRUITS, OR VEGETABLES; SUCH KIWI, BANANAS, STONE FRUITS, OR CHESTNUTSNO LATEX RISK : DO YOU HAVE A PREVIOUS PERSONAL HISTORY OF MORE THAN NINE SURGERIES, SPINA BIFIDA, OR REPEATED CATHERIZATIONS? NO LATEX RISK : ARE YOU FREQUENTLY EXPOSED TO LATEX PRODUCTS IN YOUR OCCUPATION?NO ALCOHOL SCREENING DID YOU HAVE A DRINK CONTAINING ALCOHOL IN THE PAST YEAR?NO POINTS0 INTERPRETATIONNEGATIVE RECREATIONAL DRUG USE DRUG USE?NO DENIES ABUSE OR MISUSE OF MEDICATIONS. DENIES USE OF MARIJUANA OR COCAINE. CAFFEINE CAFFEINE USE?YES HOW OFTEN AND HOW MUCH? 2/DAY COFFEE HIV / HEP-C SCREENING HIV TEST OFFERED TO PATIENT:YES DATE OFFERED:10/10/2018 TEST ACCEPTED:NO HEP-C TEST OFFERED TO PATIENT:NO REASON:PATIENT DECLINED BROCHURE PROVIDED TO PATIENTNO ZOROASTRIAN [id number] NONE LANGUAGE LANGUAGES SPOKEN:KHMER EDUCATION LEVEL OF EDUCATION:COLLEGE LEARNING BARRIERS / SPECIAL NEEDS BARRIERS TO LEARNING?NO HEARING IMPAIRED?YES VISION IMPAIRED?NO COGNITIVELY IMPAIRED?NO : ABLE TO HEAR WITHOUT ASSISTIVE DEVICE READINESS TO LEARN?YES LEARNING PREFERENCES?NO LEARNING CAPABILITIES PRESENT?YES EMOTIONAL BARRIERS?NO SPECIAL DEVICES?NO OBSTETRICIAN/GYNECOLOGIST NEEDED?NO DOMESTIC VIOLENCE DO YOU FEEL SAFE IN YOUR ENVIRONMENT?YES 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 [employer].. DIET: REGULAR. 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 MARITAL STATUS: . OTHERS AT HOME: YES. NEW PATIENT PAIN DIARY PATIENT DESCRIBES PAIN :HAVE IT ALL THE TIME, STABBING FROM 0-10, WHAT LEVEL IS YOUR PAIN TODAY?6 PRECIPITATING FACTORS STANDING ALLEVIATING FACTORS ELEVATION OF LEGS IMPACT ON FUNCTION YES PAIN CLINIC PFS, CLERGY, PUBLIC HEALTH REFERRALS PFS REFERRAL NEEDED?NO CLERGY REFERRAL NEEDED?NO PUBLIC HEALTH REFERRAL NEEDED?NO HAS THE PATIENT BEEN EDUCATED REGARDING HIS/HER PLAN OF CARE?YES HAS THE PATIENT BEEN EDUCATED REGARDING PAIN, THE RISK FOR PAIN, THE IMPORTANCE OF EFFECTIVE PAIN MANAGEMENT, AND THE PAIN ASSESSMENT PROCESS?YES HOUSING: HOUSE. ADVANCE DIRECTIVE ADVANCE DIRECTIVE DISCUSSED WITH PATIENT:YES PATIENT HAS NO ADVANCED DIRECTIVES AND HCP INFORMATION OFFERED AND DECLINED. HOSPITALIZATION/MAJOR DIAGNOSTIC PROCEDURE CHILDBIRTH 2003, 2008 REVIEW OF SYSTEMS CONSTITUTIONAL: ANY RECENT FEVER NO . CHILLS NO . WEIGHT CHANGE OF UNKNOWN REASONS NO . GASTROENTEROLOGY: NEW UNEXPLAINABLE CHANGES IN BOWEL CONTROL NO . CONSTIPATION NO . GENITOURINARY: ANY NEW CHANGE IN BLADDER CONTROL? NO . NEUROLOGY: NEW ONSET DIZZINESS OR NEUROLOGICAL CHANGES NOT MENTIONED NO . NEW NUMBNESS OR PAIN PATTERNS NOT MENTIONED AND PERTINENT TO TODAY'S VISIT NO . CARDIOLOGY: NEW CHEST PRESSURE NO . NEW CHEST PAIN NO . RESPIRATORY: UNEXPLAINABLE COUGH NO . NEW SHORTNESS OF BREATH NO . EXAMINATION GENERAL EXAMINATION: PSYCHAPPROPRIATE MOOD AND AFFECT , ORIENTED X 3. ASSESSMENTS LUMBAR DISC DISEASE WITH RADICULOPATHY - M51.16 (PRIMARY) TREATMENT LUMBAR DISC DISEASE WITH RADICULOPATHY REFILL TIZANIDINE HCL CAPSULE, 6 MG, 1 TABLET NEEDED, ORALLY, THREE TIMES A DAY, 30 DAYS, 90 STOP NORCO TABLET, 5-325 MG, 1 TABLET NEEDED, ORALLY, EVERY 12 HRS NEEDED, 30 DAYS, 60 REFILL LYRICA CAPSULE, 75 MG, 1 CAPSULE, ORALLY, TWICE DAILY, 30 DAYS, 60 START OXYCODONE-ACETAMINOPHEN TABLET, 5-325 MG, 1 TABLET NEEDED, ORALLY, EVERY 12 HRS FOR PAIN, 30 DAYS, 60 CLINICAL NOTES: 35-YEAR-OLD FEMALE IN FOR CHRONIC PAIN FOLLOW-UP. GIVEN PRESENTING SYMPTOMS RECOMMENDED STOPPING NORCO AND STARTING PERCOCET WITH FOLLOW-UP IN ONE MONTH TO DETERMINE EFFICACY OF TREATMENT. PATIENT HAS EXPRESSED UNDERSTANDING OF AND WAS IN AGREEMENT WITH TREATMENT PLAN. GIVEN TIME TO ASK QUESTIONS AND EXPRESS CONCERNS. , ISTOP REGISTRY REVIEWED AND DEMONSTRATES COMPLLIANCE. (REF # [id number] ) BRINGS IN MEDICATIONS WHICH IS APPROPRIATE FOR WHAT WAS DISPENSED. RECENT URINE TOXICOLOGY REVIEWED. NO UNAUTHORIZED MEDICATIONS. NO ILLICIT SUBSTANCES AND PRESCRIBED MEDICATIONS WERE PRESENT. VISIT TO BE BILLED BASED ON TIME SPENT WITH PATIENT. TIME SPENT WITH PATIENT 11 MINUTES. OTHERS NOTES: VITALS NOTOBTAINED DUE TO VIRTUAL VISIT, PRE-SCREENING COMPLETED, 04/13/20, NA. DISPOSITION & COMMUNICATION FOLLOW UP 4 WEEKS (REASON: BACK PAIN, NEW MEDICATION) ELECTRONICALLY SIGNED BY BALWINDER ATWOOD ON 04/15/2020 AT 08:26 AM EDT DISCLAIMER : THIS IS A VISIT SUMMARY EXTRACTED FROM THE [employer] CHART. IT IS NOT A COPY OF THE [employer] PROGRESS NOTE. FRANCESCA
== END ==
LOC: M PAIN 10:00
PROVIDERS: ATTEND Family Medicine
DX: M51.16 Intervertebral disc disorders with radiculopathy, lumbar region (principal)

== ENCOUNTER → 2020-05-12 | Outpatient (CLI) | payer OTHER | LOC: M PAIN 09:00 | PROVIDERS: ATTEND Family Medicine | DX: M51.16 Intervertebral disc disorders with radiculopathy, lumbar region (principal) ==

== ENCOUNTER → 2020-06-08 | Outpatient (CLI) | payer OTHER | LOC: M PAIN 11:08 | PROVIDERS: ATTEND Family Medicine | DX: M51.16 Intervertebral disc disorders with radiculopathy, lumbar region (principal) ==

== ENCOUNTER → 2020-08-18 | Outpatient (CLI) | payer OTHER ==
--- NOTE | 2020-08-21 23:07 | ECWPNPC ---
PATIENT NAME: JACKIE ANTHONY : 1985 GENDER: FEMALE VISIT DATE: 08/18/2020 DISCHARGE DATE: 08/18/20 1334 VISIT LOCKED DATE TIME: PHYSICIAN: DANN HOLLINS RESOURCE: DANN HOLLINS REASON FOR APPOINTMENT 1. BACK HISTORY OF PRESENT ILLNESS GENERAL: 35-YEAR-OLD FEMALE IN FOR CHRONIC PAIN FOLLOW-UP. SHE RATES HER PAIN CURRENTLY AT A 6 OUT OF 10 AND DESCRIBES IT CONTINUOUS, SHARP, AND SHOOTING. AT LAST CLINIC VISIT PATIENT'S MEDICATIONS WERE INCREASED AND SHE ADMITS TODAY THAT THIS HAS BEEN UNHELPFUL. FALL RISK SCREENING: SCREENING :TWO OR MORE FALLS WITHOUT INJURY IN THE PAST YEAR PAIN SCREENING: PATIENT HAS A COMPLAINT OF ACUTE OR CHRONIC PAIN :YES LOCATION OF PAIN:LOW BACK, LEG(S) RIGHT LEG INTENSITY OF PAIN (SCALE OF 1 TO 10):6 WHAT DOES YOUR PAIN FEEL LIKE:CONTINOUS, SHARP, SHOOTING DURATION:CONTINOUS WORSE IN THE EVENING PAIN IS INCREASED BY:ACTIVITIES, OTHERS PROLONGED SITTING PAIN IS DECREASED BY: "NOTHING" NURSING NOTE: - -. CURRENT MEDICATIONS TAKING MELATONIN ER 10 MG TABLET EXTENDED RELEASE DIRECTED 2 TABLETS ORALLY NIGHTLY, NOTES: NONE IN PAST MONTH TAKING IBUPROFEN 200 MG #60 200 MG TABLETS 2-4 TABLETS ORALLY EVERY 6-8 HOURS, NOTES: NONE IN MONTH TAKING TYLENOL 325 MG TABLET 1 TABLET NEEDED ORALLY EVERY 6 HRS TAKING CETIRIZINE HCL 10 MG TABLET 1 TABLET ORALLY ONCE A DAY TAKING MONTELUKAST SODIUM 10 MG TABLET 1 TABLET ORALLY ONCE A DAY TAKING TIZANIDINE HCL 6 MG CAPSULE 1 TABLET NEEDED ORALLY THREE TIMES A DAY TAKING LYRICA 75 MG CAPSULE 1 CAPSULE ORALLY TWICE DAILY TAKING OXYCODONE-ACETAMINOPHEN 5-325 MG TABLET 1 TABLET NEEDED ORALLY EVERY 8 HRS FOR PAIN NOT-TAKING METHOCARBAMOL 750 MG TABLET 1 TABLET ORALLY EVERY 8 HOURS NOT-TAKING CEFTIN 500 MG TABLET 1 TABLET ORALLY TWICE A DAY NOT-TAKING MECLIZINE HCL 25 MG TABLET 1 TABLET NEEDED ORALLY 3 TIMES A DAY NOT-TAKING PANTOPRAZOLE SODIUM 40 MG TABLET DELAYED RELEASE 1 TABLET ORALLY ONCE A DAY NOT-TAKING TRAZODONE HCL 150 MG TABLET 1 TABLET AT BEDTIME ORALLY ONCE A DAY NOT-TAKING COLACE 100 MG CAPSULE 1 CAPSULE NEEDED ORALLY ONCE A DAY NOT-TAKING DULOXETINE HCL 60 MG CAPSULE DELAYED RELEASE PARTICLES 1 CAPSULE ORALLY ONCE A DAY NOT-TAKING LYRICA 200 MG CAPSULE 1 CAPSULE ORALLY THREE TIMES DAILY (PAIN CLINIC) NOT-TAKING LYRICA 200 MG CAPSULE 1 CAPSULE ORALLY THREE A DAY MDD=3 NOT-TAKING CUSTOM DO NO USE MORPHINE IR 15 MG DIRECTED FOUR TIMES DAILY NEEDED (PAIN CLINIC) NOT-TAKING SKELAXIN 800 MG TABLET 1 TABLET ORALLY THREE TO FOUR TIMES A DAY (PAIN CLINIC) NOT-TAKING TIZANIDINE HCL 8 MG TABLET 1 TABLET NEEDED ORALLY EVERY 8 HRS (PAIN CLINIC), NOTES: DPLICATE NOT-TAKING FLINTSTONES COMPLETE - TABLET CHEWABLE DIRECTED 2 TABLETS ORALLY DAILY MEDICATION LIST REVIEWED AND RECONCILED WITH THE PATIENT PAST MEDICAL HISTORY CHRONIC R KNEE PAIN LUMBAR DEGENERATIVE DISC DZ/HERNIATION MIGRAINES RLS INSOMNIA HEARING LOSS FROM NOISE EXPOSURE IN THE [employer] LEFT WORSE THAN RIGHT KIDNEY STONES MYOPIA FIBROMYALGIA COSTOCHONDRITIS OSTEOARTHRITIS ENDOMETRIOSIS ALLERGIES HONEY: THROAT CLOSES OFF - ALLERGY SURGICAL HISTORY TONSILLECTOMY CHILD 2009 CHOLECYSTECTOMY 11/2015 LEFT WRIST RESET AFTER FRACTURES 04/2002 DORSAL COLUMN STIMULATOR 07/2018 FAMILY HISTORY FATHER: ALIVE, DIAGNOSED WITH DIABETES MOTHER: ALIVE, NO KNOWN MEDICAL PROBLEMS SIBLINGS: ALIVE 22 YRS MATERNAL GRAND MOTHER: ALIVE, BREAST AND LUNG CANCER 1 BROTHER(S) - HEALTHY. 2 SON(S) - HEALTHY. NO KNOWN FAMILY HISTORY OF ANY UROLOGICALLY RELATED DISEASES/CANCERS. SOCIAL HISTORY GENERAL: TOBACCO USE ARE YOU A:FORMER SMOKER HOW LONG HAS IT BEEN SINCE YOU LAST SMOKED?6-12 MONTHS VAPORYES E-CIGARETTEYES IN PROCESS OF QUITTING LATEX QUESTIONNAIRE LATEX ALLERGY : HAVE YOU EVER DEVELOPED ANY TYPE OF REACTION AFTER HANDLING LATEX PRODUCTS SUCH RUBBER GLOVES, CONDOMS, DIAPHRAGMS, BALLOONS, SOCKS, OR UNDERWEAR?NO LATEX ALLERGY : HAVE YOU EVER DEVELOPED ANY TYPE OF REACTION DURING OR AFTER DENTAL APPOINTMENT, VAGINAL/RECTAL EXAMINATION, SURGICAL PROCEDURE, OR ANY OTHER EXPOSURE?NO LATEX RISK : HAVE YOU EVER HAD ANY DIFFICULTY BREATHING OR HIVES AFTER EATING OR HANDLING ANY FRUITS, OR VEGETABLES; SUCH KIWI, BANANAS, STONE FRUITS, OR CHESTNUTSNO LATEX RISK : DO YOU HAVE A PREVIOUS PERSONAL HISTORY OF MORE THAN NINE SURGERIES, SPINA BIFIDA, OR REPEATED CATHERIZATIONS? NO LATEX RISK : ARE YOU FREQUENTLY EXPOSED TO LATEX PRODUCTS IN YOUR OCCUPATION?NO DATE ASKED : 08/18/2020 ALCOHOL SCREENING DID YOU HAVE A DRINK CONTAINING ALCOHOL IN THE PAST YEAR?NO POINTS0 INTERPRETATIONNEGATIVE RECREATIONAL DRUG USE DRUG USE?NO DENIES ABUSE OR MISUSE OF MEDICATIONS. DENIES USE OF MARIJUANA OR COCAINE. CAFFEINE CAFFEINE USE?YES HOW OFTEN AND HOW MUCH? 2/DAY COFFEE HIV / HEP-C SCREENING HIV TEST OFFERED TO PATIENT:YES DATE OFFERED:10/10/2018 TEST ACCEPTED:NO HEP-C TEST OFFERED TO PATIENT:NO REASON:PATIENT DECLINED BROCHURE PROVIDED TO PATIENTNO HOAHAOISM [id number] NONE LANGUAGE LANGUAGES SPOKEN:FINNISH EDUCATION LEVEL OF EDUCATION:COLLEGE LEARNING BARRIERS / SPECIAL NEEDS BARRIERS TO LEARNING?NO HEARING IMPAIRED?YES : ABLE TO HEAR WITHOUT ASSISTIVE DEVICE VISION IMPAIRED?NO COGNITIVELY IMPAIRED?NO READINESS TO LEARN?YES LEARNING PREFERENCES?NO LEARNING CAPABILITIES PRESENT?YES EMOTIONAL BARRIERS?NO SPECIAL DEVICES?NO REGULATORY SUBMISSIONS ASSOCIATE NEEDED?NO DOMESTIC VIOLENCE DO YOU FEEL SAFE IN YOUR ENVIRONMENT?YES 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 [employer].. DIET: REGULAR. 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 MARITAL STATUS: . OTHERS AT HOME: YES. PATIENT DESCRIBES PAIN :HAVE IT ALL THE TIME, STABBING FROM 0-10, WHAT LEVEL IS YOUR PAIN TODAY?6 PRECIPITATING FACTORS STANDING ALLEVIATING FACTORS ELEVATION OF LEGS IMPACT ON FUNCTION YES PAIN CLINIC PFS, CLERGY, PUBLIC HEALTH REFERRALS PFS REFERRAL NEEDED?NO CLERGY REFERRAL NEEDED?NO PUBLIC HEALTH REFERRAL NEEDED?NO HAS THE PATIENT BEEN EDUCATED REGARDING HIS/HER PLAN OF CARE?YES HAS THE PATIENT BEEN EDUCATED REGARDING PAIN, THE RISK FOR PAIN, THE IMPORTANCE OF EFFECTIVE PAIN MANAGEMENT, AND THE PAIN ASSESSMENT PROCESS?YES HOUSING: HOUSE. ADVANCE DIRECTIVE ADVANCE DIRECTIVE DISCUSSED WITH PATIENT:YES PATIENT HAS NO ADVANCED DIRECTIVES AND HCP INFORMATION OFFERED AND DECLINED. HOSPITALIZATION/MAJOR DIAGNOSTIC PROCEDURE CHILDBIRTH 2004, 2008 REVIEW OF SYSTEMS CONSTITUTIONAL: ANY RECENT FEVER NO . CHILLS NO . WEIGHT CHANGE OF UNKNOWN REASONS NO . GASTROENTEROLOGY: NEW UNEXPLAINABLE CHANGES IN BOWEL CONTROL NO . CONSTIPATION NO . GENITOURINARY: ANY NEW CHANGE IN BLADDER CONTROL? NO . NEUROLOGY: NEW ONSET DIZZINESS OR NEUROLOGICAL CHANGES NOT MENTIONED NO . NEW NUMBNESS OR PAIN PATTERNS NOT MENTIONED AND PERTINENT TO TODAY'S VISIT NO . CARDIOLOGY: NEW CHEST PRESSURE NO . NEW CHEST PAIN NO . RESPIRATORY: UNEXPLAINABLE COUGH NO . NEW SHORTNESS OF BREATH NO . VITAL SIGNS WT 146.0 LBS, HT 65 IN, BMI 24.29 INDEX, BP 114/66 MM HG, HR 67 /MIN, RR 18 /MIN, TEMP 99.6 F, OXYGEN SAT % 100%, SAFE IN ENV? (Y/N) YES, NA INITIALS AW 1131, REVIEWED BY: JOHNSON 1142. EXAMINATION GENERAL EXAMINATION: GENERALNO ACUTE DISTRESS, WELL NOURISHED AND HYDRATED. PSYCHAPPROPRIATE MOOD AND AFFECT . LUNGS:CLEAR TO AUSCULTATION BILATERALLY, NO WHEEZES, RHONCHI, RALES. HEART:NO MURMURS, REGULAR RATE AND RHYTHM. ASSESSMENTS LUMBAR DISC DISEASE WITH RADICULOPATHY - M51.16 (PRIMARY) TREATMENT LUMBAR DISC DISEASE WITH RADICULOPATHY CONTINUE LYRICA CAPSULE, 100 MG, 1 CAPSULE, ORALLY, THREE TIMES DAILY, 30 DAYS, 90 INCREASE OXYCODONE-ACETAMINOPHEN TABLET, 7.5-325 MG, 1 TABLET NEEDED, ORALLY, EVERY 8 HRS FOR PAIN, 30 DAYS, 90 NOTES: 35-YEAR-OLD FEMALE IN FOR CHRONIC PAIN FOLLOW-UP. GIVEN PRESENTING SYMPTOMS RECOMMEND INCREASING PERCOCET TO 7.54/325 MG 3 TIMES A DAY WITH FOLLOW-UP IN 2 MONTHS. PATIENT HAS EXPRESSED UNDERSTANDING OF AND WAS IN AGREEMENT WITH TREATMENT PLAN. GIVEN TIME TO ASK QUESTIONS AND EXPRESS CONCERNS. , ISTOP REGISTRY REVIEWED AND DEMONSTRATES COMPLLIANCE. (REF # [id number] ) BRINGS IN MEDICATIONS WHICH IS APPROPRIATE FOR WHAT WAS DISPENSED. RECENT URINE TOXICOLOGY REVIEWED. NO UNAUTHORIZED MEDICATIONS. NO ILLICIT SUBSTANCES AND PRESCRIBED MEDICATIONS WERE PRESENT. UTOX COMPLETED, REVIEWED AND DISCUSSED WRITTEN AND VERBAL INSTRUCTIONS FOR MEDICATION CHANGES AND TREATMENT PLAN, PT ACKNOWLEDGES UNDERSTANDING. DS. PROCEDURE CODES FA211 ESTABILISHED PATIENT [facility] CHARGE DISPOSITION & COMMUNICATION FOLLOW UP 2 MONTHS (REASON: BACK PAIN) ELECTRONICALLY SIGNED BY BALWINDER ATWOOD ON 08/21/2020 AT 09:22 AM EST DISCLAIMER : THIS IS A VISIT SUMMARY EXTRACTED FROM THE [employer] CHART. IT IS NOT A COPY OF THE [employer] PROGRESS NOTE. MTDD
== END ==
LOC: M PAIN 11:15
PROVIDERS: ATTEND Family Medicine
DX: M51.16 Intervertebral disc disorders with radiculopathy, lumbar region (principal); G89.29 Other chronic pain; G43.909 Migraine, unspecified, not intractable, without status migrainosus; G25.81 Restless legs syndrome; G47.00 Insomnia, unspecified; M79.7 Fibromyalgia; F17.290 Nicotine dependence, other tobacco product, uncomplicated; Z91.018 Allergy to other foods; Z79.899 Other long term (current) drug therapy

== ENCOUNTER → 2020-10-20 | Outpatient (CLI) | payer OTHER ==
--- NOTE | 2020-10-21 23:42 | ECWPNPC ---
PATIENT NAME: JACKIE ANTHONY : 1985 GENDER: FEMALE VISIT DATE: 10/20/2020 DISCHARGE DATE: 10/20/20 1149 VISIT LOCKED DATE TIME: PHYSICIAN: DANN HOLLINS RESOURCE: DANN HOLLINS REASON FOR APPOINTMENT 1. BACK HISTORY OF PRESENT ILLNESS GENERAL: - 35-YEAR-OLD FEMALE IN FOR CHRONIC PAIN FOLLOW-UP. SHE RATES HER PAIN CURRENTLY AT A 5 OUT OF 10 AND DESCRIBES IT STABBING, AND SHOOTING. HER MEDICATIONS ARE INCREASED AT LAST CLINIC VISIT AND SHE ADMITS TODAY THAT THIS HAS BEEN BENEFICIAL. FALL RISK SCREENING: SCREENING :TWO OR MORE FALLS WITHOUT INJURY IN THE PAST YEAR PAIN SCREENING: PATIENT HAS A COMPLAINT OF ACUTE OR CHRONIC PAIN :YES LOCATION OF PAIN:UPPER BACK, MID BACK, LOW BACK INTENSITY OF PAIN (SCALE OF 1 TO 10):5 WHAT DOES YOUR PAIN FEEL LIKE:STABBING, SHOOTING DURATION:CONTINOUS, CONSTANT, ALL DAY PAIN IS INCREASED BY:PROLONGED STANDING, OTHERS SITTING STILL PAIN IS DECREASED BY:USE OF PAIN MEDICATIONS, OTHERS MOVING IN PLACE HELP WITH HIPS TREATMENT/MEDICATIONS USED TO MANAGE PAIN:OPIOIDS LEVEL OF RELIEF FROM PAIN TREATMENTS IN THE PAST:50% PAIN HAS INTERFERED WITH THE FOLLOWING:BATHING/DRESSING, WALKING ABILITY NURSING NOTE: -. PAIN CENTER INTAKE QUESTIONS: DO YOU HAVE A HISTORY OF MRSA? :NO DO YOU TAKE A BLOOD THINNERS? :NO DO YOU HAVE ANY BLEEDING DISORDERS? :NO ANY NEW NUMBNESS OR WEAKNESS IN YOUR LEGS OR ARMS? :NO ANY PACEMAKER,DEFIBRILLATOR, OR DORSAL COLUMN STIMULATOR? :YES DORSAL COLUMN STIMULATOR DO YOU HAVE ANY RASHES OR OPEN SORES? :NO ARE YOU ALLERGIC TO IV DYE? :NO ARE YOU DIABETIC? :NO ANY NEW PROBLEMS WITH YOUR MEDICATIONS? :NO HAVE YOU RECEIVED A VACCINE IN THE PAST 30 DAYS? :NO DO YOU PLAN TO RECEIVE A VACCINE IN THE NEXT 21 DAYS? :NO DO YOU NEED ANY PRESCRIPTION? :NO DO YOU TAKE ANY IMMUNOSUPPRESSIVE MEDICATIONS? :NO IS THERE A CHANCE YOU COULD BE ? :NO ARE YOU BREAST FEEDING? :NO CURRENT MEDICATIONS TAKING IBUPROFEN 200 MG #60 200 MG TABLETS 2-4 TABLETS ORALLY EVERY 6-8 HOURS, NOTES: NONE IN MONTH TAKING TYLENOL 325 MG TABLET 1 TABLET NEEDED ORALLY EVERY 6 HRS TAKING CETIRIZINE HCL 10 MG TABLET 1 TABLET ORALLY ONCE A DAY TAKING OXYCODONE-ACETAMINOPHEN 7.5-325 MG TABLET 1 TABLET NEEDED ORALLY EVERY 8 HRS FOR PAIN TAKING LYRICA 100 MG CAPSULE 1 CAPSULE ORALLY THREE TIMES DAILY TAKING TIZANIDINE HCL 6 MG CAPSULE 1 TABLET NEEDED ORALLY THREE TIMES A DAY TAKING SINGULAIR 5 MG TABLET CHEWABLE DIRECTED ORALLY NOT-TAKING MELATONIN ER 10 MG TABLET EXTENDED RELEASE DIRECTED 2 TABLETS ORALLY NIGHTLY, NOTES: NONE IN PAST MONTH NOT-TAKING MONTELUKAST SODIUM 10 MG TABLET 1 TABLET ORALLY ONCE A DAY NOT-TAKING METHOCARBAMOL 750 MG TABLET 1 TABLET ORALLY EVERY 8 HOURS NOT-TAKING CEFTIN 500 MG TABLET 1 TABLET ORALLY TWICE A DAY NOT-TAKING MECLIZINE HCL 25 MG TABLET 1 TABLET NEEDED ORALLY 3 TIMES A DAY NOT-TAKING PANTOPRAZOLE SODIUM 40 MG TABLET DELAYED RELEASE 1 TABLET ORALLY ONCE A DAY NOT-TAKING TRAZODONE HCL 150 MG TABLET 1 TABLET AT BEDTIME ORALLY ONCE A DAY NOT-TAKING COLACE 100 MG CAPSULE 1 CAPSULE NEEDED ORALLY ONCE A DAY NOT-TAKING DULOXETINE HCL 60 MG CAPSULE DELAYED RELEASE PARTICLES 1 CAPSULE ORALLY ONCE A DAY NOT-TAKING LYRICA 200 MG CAPSULE 1 CAPSULE ORALLY THREE TIMES DAILY (PAIN CLINIC) NOT-TAKING LYRICA 200 MG CAPSULE 1 CAPSULE ORALLY THREE A DAY MDD=3 NOT-TAKING CUSTOM DO NO USE MORPHINE IR 15 MG DIRECTED FOUR TIMES DAILY NEEDED (PAIN CLINIC) NOT-TAKING SKELAXIN 800 MG TABLET 1 TABLET ORALLY THREE TO FOUR TIMES A DAY (PAIN CLINIC) NOT-TAKING TIZANIDINE HCL 8 MG TABLET 1 TABLET NEEDED ORALLY EVERY 8 HRS (PAIN CLINIC), NOTES: DPLICATE NOT-TAKING FLINTSTONES COMPLETE - TABLET CHEWABLE DIRECTED 2 TABLETS ORALLY DAILY MEDICATION LIST REVIEWED AND RECONCILED WITH THE PATIENT PAST MEDICAL HISTORY CHRONIC R KNEE PAIN LUMBAR DEGENERATIVE DISC DZ/HERNIATION MIGRAINES RLS INSOMNIA HEARING LOSS FROM NOISE EXPOSURE IN THE ARMY LEFT WORSE THAN RIGHT KIDNEY STONES MYOPIA FIBROMYALGIA COSTOCHONDRITIS OSTEOARTHRITIS ENDOMETRIOSIS ALLERGIES HONEY: THROAT CLOSES OFF - ALLERGY SURGICAL HISTORY TONSILLECTOMY CHILD 2009 CHOLECYSTECTOMY 11/2015 LEFT WRIST RESET AFTER FRACTURES 04/2002 DORSAL COLUMN STIMULATOR 07/2018 FAMILY HISTORY FATHER: ALIVE, DIAGNOSED WITH DIABETES MOTHER: ALIVE, NO KNOWN MEDICAL PROBLEMS SIBLINGS: ALIVE 23 YRS MATERNAL GRAND MOTHER: ALIVE, BREAST AND LUNG CANCER 1 BROTHER(S) - HEALTHY. 2 SON(S) - HEALTHY. NO KNOWN FAMILY HISTORY OF ANY UROLOGICALLY RELATED DISEASES/CANCERS. SOCIAL HISTORY GENERAL: TOBACCO USE ARE YOU A:FORMER SMOKER HOW LONG HAS IT BEEN SINCE YOU LAST SMOKED?6-12 MONTHS VAPORYES E-CIGARETTEYES IN PROCESS OF QUITTING LATEX QUESTIONNAIRE LATEX ALLERGY : HAVE YOU EVER DEVELOPED ANY TYPE OF REACTION AFTER HANDLING LATEX PRODUCTS SUCH RUBBER GLOVES, CONDOMS, DIAPHRAGMS, BALLOONS, SOCKS, OR UNDERWEAR?NO LATEX ALLERGY : HAVE YOU EVER DEVELOPED ANY TYPE OF REACTION DURING OR AFTER DENTAL APPOINTMENT, VAGINAL/RECTAL EXAMINATION, SURGICAL PROCEDURE, OR ANY OTHER EXPOSURE?NO LATEX RISK : HAVE YOU EVER HAD ANY DIFFICULTY BREATHING OR HIVES AFTER EATING OR HANDLING ANY FRUITS, OR VEGETABLES; SUCH KIWI, BANANAS, STONE FRUITS, OR CHESTNUTSNO LATEX RISK : DO YOU HAVE A PREVIOUS PERSONAL HISTORY OF MORE THAN NINE SURGERIES, SPINA BIFIDA, OR REPEATED CATHERIZATIONS? NO LATEX RISK : ARE YOU FREQUENTLY EXPOSED TO LATEX PRODUCTS IN YOUR OCCUPATION?NO DATE ASKED : 10/20/2020 ALCOHOL SCREENING DID YOU HAVE A DRINK CONTAINING ALCOHOL IN THE PAST YEAR?NO POINTS0 INTERPRETATIONNEGATIVE RECREATIONAL DRUG USE DRUG USE?NO DENIES ABUSE OR MISUSE OF MEDICATIONS. DENIES USE OF MARIJUANA OR COCAINE. CAFFEINE CAFFEINE USE?YES HOW OFTEN AND HOW MUCH? 2/DAY COFFEE HIV / HEP-C SCREENING HIV TEST OFFERED TO PATIENT:YES DATE OFFERED:10/10/2018 TEST ACCEPTED:NO HEP-C TEST OFFERED TO PATIENT:NO REASON:PATIENT DECLINED BROCHURE PROVIDED TO PATIENTNO YARSANI [id number] NONE LANGUAGE LANGUAGES SPOKEN:AMERICAN EDUCATION LEVEL OF EDUCATION:COLLEGE LEARNING BARRIERS / SPECIAL NEEDS BARRIERS TO LEARNING?NO HEARING IMPAIRED?YES VISION IMPAIRED?NO COGNITIVELY IMPAIRED?NO : ABLE TO HEAR WITHOUT ASSISTIVE DEVICE READINESS TO LEARN?YES LEARNING PREFERENCES?NO LEARNING CAPABILITIES PRESENT?YES EMOTIONAL BARRIERS?NO SPECIAL DEVICES?NO TOE SEWER NEEDED?NO DOMESTIC VIOLENCE DO YOU FEEL SAFE IN YOUR ENVIRONMENT?YES 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 [employer].. DIET: REGULAR. 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 MARITAL STATUS: . OTHERS AT HOME: YES. PATIENT DESCRIBES PAIN :HAVE IT ALL THE TIME, STABBING FROM 0-10, WHAT LEVEL IS YOUR PAIN TODAY?6 PRECIPITATING FACTORS STANDING ALLEVIATING FACTORS ELEVATION OF LEGS IMPACT ON FUNCTION YES PAIN CLINIC PFS, CLERGY, PUBLIC HEALTH REFERRALS PFS REFERRAL NEEDED?NO CLERGY REFERRAL NEEDED?NO PUBLIC HEALTH REFERRAL NEEDED?NO HAS THE PATIENT BEEN EDUCATED REGARDING HIS/HER PLAN OF CARE?YES HAS THE PATIENT BEEN EDUCATED REGARDING PAIN, THE RISK FOR PAIN, THE IMPORTANCE OF EFFECTIVE PAIN MANAGEMENT, AND THE PAIN ASSESSMENT PROCESS?YES HOUSING: HOUSE. ADVANCE DIRECTIVE ADVANCE DIRECTIVE DISCUSSED WITH PATIENT:YES PATIENT HAS NO ADVANCED DIRECTIVES AND HCP INFORMATION OFFERED AND DECLINED. HOSPITALIZATION/MAJOR DIAGNOSTIC PROCEDURE CHILDBIRTH 2004, 2008 REVIEW OF SYSTEMS CONSTITUTIONAL: ANY RECENT FEVER NO . CHILLS NO . WEIGHT CHANGE OF UNKNOWN REASONS NO . GASTROENTEROLOGY: NEW UNEXPLAINABLE CHANGES IN BOWEL CONTROL NO . CONSTIPATION NO . GENITOURINARY: ANY NEW CHANGE IN BLADDER CONTROL? NO . NEUROLOGY: NEW ONSET DIZZINESS OR NEUROLOGICAL CHANGES NOT MENTIONED NO . NEW NUMBNESS OR PAIN PATTERNS NOT MENTIONED AND PERTINENT TO TODAY'S VISIT NO . CARDIOLOGY: NEW CHEST PRESSURE NO . NEW CHEST PAIN NO . RESPIRATORY: UNEXPLAINABLE COUGH NO . NEW SHORTNESS OF BREATH NO . VITAL SIGNS WT 148.8 LBS, HT 65 IN, BMI 24.76 INDEX, BP 113/70 MM HG, HR 59 /MIN, RR 18 /MIN, TEMP 97.6 F, OXYGEN SAT % 95%, SAFE IN ENV? (Y/N) YES, NA INITIALS AW 1109, REVIEWED BY: RODO IHLL. EXAMINATION GENERAL EXAMINATION: GENERALNO ACUTE DISTRESS, WELL NOURISHED AND HYDRATED. PSYCHAPPROPRIATE MOOD AND AFFECT . LUNGS:CLEAR TO AUSCULTATION BILATERALLY, NO WHEEZES, RHONCHI, RALES. HEART:NO MURMURS, REGULAR RATE AND RHYTHM. ASSESSMENTS LUMBAR DISC DISEASE WITH RADICULOPATHY - M51.16 (PRIMARY) TREATMENT LUMBAR DISC DISEASE WITH RADICULOPATHY NOTES: 35-YEAR-OLD FEMALE IN FOR CHRONIC PAIN FOLLOW-UP. GIVEN PRESENTING SYMPTOMS RECOMMENDED CONTINUATION OF CURRENT MEDICATION REGIMEN WITH FOLLOW-UP IN 3 MONTHS. PATIENT HAS EXPRESSED UNDERSTANDING OF AND WAS IN AGREEMENT WITH TREATMENT PLAN. GIVEN TIME TO ASK QUESTIONS AND EXPRESS CONCERNS. , ISTOP REGISTRY REVIEWED AND DEMONSTRATES COMPLLIANCE. (REF #[id number] ) BRINGS IN MEDICATIONS WHICH IS APPROPRIATE FOR WHAT WAS DISPENSED. RECENT URINE TOXICOLOGY REVIEWED. NO UNAUTHORIZED MEDICATIONS. NO ILLICIT SUBSTANCES AND PRESCRIBED MEDICATIONS WERE PRESENT. PROCEDURE CODES FA211 ESTABILISHED PATIENT [facility] CHARGE DISPOSITION & COMMUNICATION FOLLOW UP 3 MONTHS (REASON: BACK PAIN) ELECTRONICALLY SIGNED BY BALWINDER ATWOOD ON 10/21/2020 AT 09:07 AM EST DISCLAIMER : THIS IS A VISIT SUMMARY EXTRACTED FROM THE [employer] CHART. IT IS NOT A COPY OF THE [employer] PROGRESS NOTE. FRANCESCA
== END ==
LOC: M PAIN 11:00
PROVIDERS: ATTEND Family Medicine
DX: M51.16 Intervertebral disc disorders with radiculopathy, lumbar region (principal); G89.29 Other chronic pain; G43.909 Migraine, unspecified, not intractable, without status migrainosus; G25.81 Restless legs syndrome; G47.00 Insomnia, unspecified; M79.7 Fibromyalgia; F17.290 Nicotine dependence, other tobacco product, uncomplicated; Z96.89 Presence of other specified functional implants; Z91.018 Allergy to other foods; Z79.899 Other long term (current) drug therapy

== ENCOUNTER → 2020-11-26 | Outpatient (CLI) | payer OTHER ==
[~2020-11-26] MED LIST changes: +CETI-24 PO; +MONT10TA10; +OXYC1TAB15; +PREG100C; +TIZA6CAP
== END ==
LOC: M LABSMTC 11:22
PROVIDERS: ATTEND Anesthesiology
DX: Z01.812 Encounter for preprocedural laboratory examination (principal); Z20.822 Contact with and (suspected) exposure to COVID-19

== ENCOUNTER 2020-12-01 10:39 | Day surgery (SDC) | payer OTHER ==
[~2020-12-01] VITALS: Ht 167.6 cm; Wt 70.9 kg
--- OUTSIDE RECORDS SUMMARY | 2020-12-01 10:43 | CCD ---
Author Author [facility] Organization [facility] Address Unknown Phone Unavailable Care Team Providers Care Janitorial Assistant Name Role Phone Romeo Chandler Unavailable PROBLEMS Type Condition ICD9-CM Code [id number] Code Onset Dates Condition S tatus SNOMED Code Notes Problem Degeneration of lumbar or lumbosacral intervertebral disc 722.52 Active 05145161 Problem Unspecified internal derangement of knee 717.9 Active 11864280 Problem Chronic migraine without aur a, without mention of intractable migraine without mention of status migrainosus 346.70 Active 775135778350892 Problem Lumbar disc disease with radiculopathy M51.16 A ctive 863827537 Problem Insomnia, unspecified 780.52 Active 532175261 Problem Myalgia M79.1 Active 40368228 Problem Restless legs syndrome [RLS] 333.94 Active 329 77203 Problem Nondependent tobacco use disorder 305.1 Active 531835122 Problem Hearing loss of both ears 389.9 Active 082722 01 Problem History of kidney stones V13.01 Active 4116915 08 Problem Lumbar facet arthropathy M46.96 Active 0478907 08 ALLERGIES Allergen (clinical drug ingredient) Drug/Non Drug Allergy do cumented on EMR Reaction Allergy Type Onset Date Status honey throat closes off Non Drug Allergy A ctive ENCOUNTERS from 1985 to 2020-10-11 Encounter Location Date Provider Diagnosis [facility] [address] [place] [id number] Sep, Romeo Chandler Lumbar disc disease with radiculopathy M 51.16 IMMUNIZATIONS Vaccine Route Administration Date Status TDAP 0.5mL (Boostrix) IM Intramuscular Jun 02, 2013 Administe red TD Adult 0.5mL (Tetanus) Unknown Jun 02, 2002 Adminis tertom SOCIAL HISTORY Tobacco Use: Social History Observation Description Date Details (start date - stop date) Former Smoker Sex Assigned At : Social History Observation Description Sex Assigned At Unknown Education: Question Answer Notes Level of Education: College Language: Question Answer Notes Languages spoken: Yi Latter Day: Question Answer Notes L[employer] Day 33 None Alcohol Screening: Question Answer Notes Did you have a drink containing alcohol in the past year? No Points 0 Interpretation Negative Tobacco Use: Question Answer Notes Are you a: former smoker How long has it been since you last smoked? 6-12 months REASON FOR REFERRAL No Information VITAL SIGNS No information MEDICATIONS Medication SIG (Take, Route, Frequency, Duration) Notes Start Da te End Date Status Pantoprazole Sodium 40 MG 1 tablet Orally Once a day for 30 day(s) Not-Taking Skelaxin 800 MG 1 tablet Orally Three to four times a day (Pain clini c) Not-Taking TraZODone HCl 150 MG 1 tablet at bedtime Orally Once a day Not-Taking Tizanidine HCl 6 MG 1 tablet as needed Orally Three times a day for 30 days Active CUSTOM DO NO USE Morphine IR 15 mg as directed four ti mes daily as needed (pain clinic) Not-Taking Lyrica 200 MG 1 capsule Orally Three a day MDD=3 for 90 day(s) Jan, Not-Taking Flintstones Complete - as directed 2 tablets Orally daily Not-Taking Tylenol 325 MG 1 tablet as needed Orally every 6 hrs Active Meclizine HCl 25 MG 1 tablet as needed Orally 3 times a day Not-Taking Duloxetine HCl 60 MG 1 capsule Orally Once a day for 30 day(s) Not-Taking Lyrica 100 MG 1 capsule Orally three times daily for 30 days Mar, Active Melatonin ER 10 MG as directed 2 tablets Orally nightly Active Ceftin 500 mg 1 tablet Orally Twice a day for 7 days 2014 Not-Taking Oxycodone-Acetaminophen 7.5-325 MG 1 tablet as needed Orally every 8 hrs for pain for 30 days Sep, Active Tizanidine HCl 8 mg 1 tablet as needed Orally every 8 hrs (pain clini c) Not-Taking Ibuprofen 200 mg #60 200 mg 2-4 tablets orally every 6-8 hours Active Colace 100 MG 1 capsule as needed Orally Once a day for 30 day(s) Not-Taking Montelukast Sodium 10 MG 1 tablet Orally Once a day for 30 day(s) Active Methocarbamol 750 MG 1 tablet Orally every 8 hours for 30 day(s) Jan, Not-Taking Lyrica 200 MG 1 capsule Orally three times daily (Pain clinic) Not-Taking Cetirizine HCl 10 MG 1 tablet Orally Once a day for 30 day(s) Active PROCEDURES No Information RESULTS No Results REASON FOR VISIT Refill Pregabalin, Tizanidine, Oxycodone MEDICAL (GENERAL) HISTORY Type Description Date Medical History Chronic R knee pain Medical History Lumbar degenerative disc dz/herniation Medical History Migraines Medical History RLS Medical History Insomnia Medical History Hearing loss from noise expo sure in the [employer] left worse than right Medical History Kidney stones Medical History Myopia Medical History Fibromyalgia Medical History Costochondritis Medical History Osteoarthritis Medical History Endometriosis Surgical History Tonsillectomy Child Surgical History 2009 Surgical History Cholecystectomy 11/2015 Surgical History Left wrist reset after fractures 04/2002 Surgical History Dorsal column stimulator 07/2018 Hospitalization History Childbirth 2004, 2009 Goals Section No Information Health Concerns No Information MEDICAL EQUIPMENT No Information MENTAL STATUS No Information FUNCTIONAL STATUS No Information ASSESSMENTS Encounter Date Diagnosis Assessment Notes Treatment Notes Treatm ent Clinical Notes Sep, Lumbar disc disease with radiculopathy (ICD-10 - M51.16) PLAN OF TREATMENT Medication Medication Name Sig Start Date Stop Date Lyrica 100 MG 1 capsule Orally three times daily for 30 days 0 2 Mar, 2020 Tizanidine HCl 6 MG 1 tablet as needed Orally Three times a day for 30 days Oxycodone-Acetaminophen 7.5-325 MG 1 tablet as needed Orally every 8 hrs for pain for 30 days Sep, Insurance Providers Payer Name Payer Address Payer Phone Insured Name Patient Relati onship to Insured Coverage Start Date Coverage End Date [place] [phone] JACKIE LOPEZ self
--- OUTSIDE RECORDS SUMMARY | 2020-12-01 10:43 | CCD | Continuity of Care Document ---
Author Author Roxy LAGOS M.D. Organization Unknown Address [address] [place] [address] Phone [phone] Care Team Providers Care Electrophysiology Scientist Name Role Phone Amandeep Vázquez AUTM [phone] Problems Active Problems Provider Date Hemorrhage of rectum and anus Dave Lagos M.D. Onset : 11/23/2020 Social History Type Date Description Comments Sex Unknown ETOH Use Denies alcohol use Tobacco Use Start: Unknown Patient has never smoked Allergies, Adverse Reactions, Alerts Description No Known Drug Allergies Medications Active Medications SIG Qnty Indications Ordering Provide r Date Sutab [id number] Tablets as directed 1box Dave Lagos M.D. 11/23/2020 Ondansetron 4mg Tablets Dispers dissolve 1 tablet on tongue every 4 hours as needed for nausea 90tabs Dave Lagos M.D. 11/23/2020 Oxycodone-Acetaminophen 7.5-325mg Tablets Take One Tablet By Mouth Every 8 Hours as Needed For Pain Unknown Montelukast Sodium 10mg Tablets Take One Tablet By Mouth Every Day Unknown Tizanidine HCL 6mg Capsules Take One Capsule By Mouth Three Times A Day as Needed Unk nown Cetirizine HCL 10mg Tablets Unknown Lyrica 100mg Capsules Unknown Immunizations Description No Information Available Vital Signs Date Vital Result Comment 11/23/2020 2:12pm Height 66 inches 5'6" Weight 149.00 lb BP Systolic 113 mmHg BP Diastolic 70 mmHg Heart Rate 56 /min BMI (Body Mass Index) 24.0 kg/m2 Weight 67.586 kg Body Temperature 97.3 F Results Description No Information Available Procedures Description No Information Available Medical Devices Description No Information Available Encounters Type Date Location Provider Dx Diagnosis Office Visit 11/23/2020 2:00p Main Office Dave Lagos M.D. R 11.2 Nausea with vomiting, unspecified K52.9 Noninfective gastroenteritis and colitis, unspecified K62.5 Hemorrhage of anus and rectu m Assessments Date Code Description Provider 11/23/2020 R11.2 Nausea and vomiting Dave gruber M.D. 11/23/2020 K52.9 Chronic diarrhea Dave aiken M.D. 11/23/2020 K62.5 Hemorrhage of rectum and anus Ge marimar Lagos M.D. Plan of Treatment Future Appointment(s):* 11/25/2020 7:00 am - Noam at Main Office * 12/01/2020 1:30 pm - Dave Lagos M.D. at Main Office 11/23/2020 - Dave Lagos M.D.* R11.2 Nausea and vomiting* Comments:* 35 yo wf who presents for a h/o chronic diarrhea for 2 yrs. She has rectal bleed ing for last 2 weeks. She also had severe episodes of nausea/vomiting. Vomiting is improved. She has 60 lbs. The weight loss has stopped. She does state she is under a great deal of stress. Plan:1. Colonoscopy + egd.2. Informed consent.3. Gi panel. * K52.9 Chronic diarrhea* Comments:* As above. * K62.5 Hemorrhage of rectum and anus* Comments:* 1. Schedule Colonoscopy.2.Informed consent given.3.Pt. advised to stop asa,plavix, and coumadin at least 3 to 7 days prior to the procedure. Functional Status Description No Information Available Mental Status Description No Information Available Referrals Description No Information Available
--- OUTSIDE RECORDS SUMMARY | 2020-12-01 10:43 | CCD | Continuity of Care Document ---
Author Author Roxy PEREZ M.D. Organization Unknown Address [address] [place] [address] Phone [phone] Care Team Providers Care Plastic Extruding Machine Operator Name Role Phone Bj Mccormack M.D. AUTM [phone] Problems Active Problems Provider Date Chronic tension-type headache David Perez M.D. Onset: Neck pain David Perez M.D. Onset: 05/07/2019 Low back pain David Perez M.D. Onset: 05/07/2019 Disorders of initiating and maintaining sleep Fiorella Knowles Onset: 10/29/2020 Dizziness and giddiness David Perez M.D. Onset: Chronic intractable migraine without aura David Perez M.D. Onset: 10/29/2020 Social History Type Date Description Comments Sex Unknown Allergies, Adverse Reactions, Alerts Active Allergies Reaction Severity Comments Date Depakote ammonia elevated 07/30/2013 Topamax elevated ammonia 07/30/2013 Medications Active Medications SIG Qnty Indications Ordering Provide r Date Mirtazapine 30mg Tablets half a tab by mouth every night at bedtime for 1 week, then 1 by mouth qhs. 30tabs David Perez M.D. 10/29/2020 Fioricet 50-300-40mg Capsules 1 po at onset of migraine. kristin Altamirano M.D. 06/04/2013 Immunizations Description No Information Available Vital Signs Date Vital Result Comment 12/19/2013 1:15pm BP Systolic 110 mmHg BP Diastolic 60 mmHg Heart Rate 72 /min 10/01/2013 4:25pm BP Systolic 110 mmHg BP Diastolic 80 mmHg Heart Rate 72 /min Results Description No Information Available Procedures Description No Information Available Medical Devices Description No Information Available Encounters Type Date Location Provider Dx Diagnosis Office Visit 10/29/2020 8:45a Main office - [place] Fiorella Knowles G44.221 Chronic tension-type headache, intractable G43.719 Chronic migraine w/o aura, i ntractable, w/o stat migr R42 Dizziness and giddiness M54.2 Cervicalgia M54.5 Low back pain F51.01 Primary insomnia Assessments Date Code Description Provider 10/29/2020 G44.221 Chronic tension-type headache, i ntractable David Perez M.D. 10/29/2020 G43.719 Chronic migraine wit hout aura, intractable, without status migrainosus David Perez M.D. 10/29/2020 R42 Dizziness and giddiness David cotton M.D. 10/29/2020 M54.2 Cervicalgia David Perez M.D. 10/29/2020 M54.5 Low back pain David Perez M.D. 10/29/2020 F51.01 Primary insomnia Vandana Knowles Plan of Treatment 12/19/2013 - Jessica Farias P.A.-C.* 346.20 Migraine Variants W/O Intractable W/O Status Migrainosus* New Medication:* Pamelor 10 mg - 1 po qhs * Comments:* Add Pamelor. Continue Inderal with Fioricet and diclofenac prn. * 780.52 Insomnia Unspecified* Comments:* Add Pamelor qhs. * 333.94 Restless Leg Syndrome* Comments:* Continue Requip. * 723.1 Cervicalgia* New Medication:* Zanaflex 2 mg - 1 po bid prn * Comments:* Discontinue baclofen. Add Zanaflex bid prn. Follow up at the pain clinic. * 724.2 Lumbago* Comments:* Follow up at the pain clinic. * 721.3 Spondylosis Lumbar W/O Myelopathy * 268.9 Vitamin D Deficiency Unspec* Comments:* Last level 41. 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 * 333.1 Tremor Essential & Other Forms* Comments:* Continue proproanolol. * Follow up:* 6 weeks. Functional Status Description No Information Available Mental Status Description No Information Available Referrals Description No Information Available
--- OUTSIDE RECORDS SUMMARY | 2020-12-01 10:43 | CCD ---
Author Author [facility] Organization [facility] ems Address Unknown Phone Unavailable Care Team Providers Care Grants Analyst Name Role Phone Romeo Chandler Unavailable PROBLEMS Type Condition ICD9-CM Code GRT49-BW Code Onset Dates Condition S tatus SNOMED Code Notes Problem Degeneration of lumbar or lumbosacral intervertebral disc 722.52 Active 51697002 Problem Unspecified internal derangement of knee 717.9 Active 13358920 Problem Chronic migraine without aur a, without mention of intractable migraine without mention of status migrainosus 346.70 Active 464801774304190 Problem Lumbar disc disease with radiculopathy M51.16 A ctive 037233468 Problem Insomnia, unspecified 780.52 Active 023368534 Problem Myalgia M79.1 Active 54647817 Problem Restless legs syndrome [RLS] 333.94 Active 329 54828 Problem Nondependent tobacco use disorder 305.1 Active 613735085 Problem Hearing loss of both ears 389.9 Active 545419 01 Problem History of kidney stones V13.01 Active 3042584 08 Problem Lumbar facet arthropathy M46.96 Active 8497290 08 ALLERGIES Allergen (clinical drug ingredient) Drug/Non Drug Allergy do cumented on EMR Reaction Allergy Type Onset Date Status honey throat closes off Non Drug Allergy A ctive ENCOUNTERS from 1986 to 2020-10-29 Encounter Location Date Provider Diagnosis [facility] [address] [place] [address] Aug, Romeo Chandler IMMUNIZATIONS Vaccine Route Administration Date Status TDAP 0.5mL (Boostrix) IM Intramuscular Jun 02, 2013 Administe red TD Adult 0.5mL (Tetanus) Unknown Jun 02, 2002 Adminis tered SOCIAL HISTORY Tobacco Use: Social History Observation Description Date Details (start date - stop date) Former Smoker Sex Assigned At : Social History Observation Description Sex Assigned At Unknown Education: Question Answer Notes Level of Education: College Language: Question Answer Notes Languages spoken: Irish Church: Question Answer Notes Church 33 None Alcohol Screening: Question Answer Notes [...] Notes Start Da te End Date Status Duloxetine HCl 60 MG 1 capsule Orally Once a day for 30 day(s) Not-Taking Montelukast Sodium 10 MG 1 tablet Orally Once a day for 30 day(s) Not-Taking Flintstones Complete - as directed 2 tablets Orally daily Not-Taking Cetirizine HCl 10 MG 1 tablet Orally Once a day for 30 day(s) Active Ceftin 500 mg 1 tablet Orally Twice a day for 7 days 2014 Not-Taking Lyrica 200 MG 1 capsule Orally Three a day MDD=3 for 90 day(s) Jan, Not-Taking Tizanidine HCl 8 mg 1 tablet as needed Orally every 8 hrs (pain clini c) Not-Taking CUSTOM DO NO USE Morphine IR 15 mg as directed four ti mes daily as needed (pain clinic) Not-Taking Lyrica 100 MG 1 capsule Orally three times daily for 30 days Mar, Active Tizanidine HCl 6 MG 1 tablet as needed Orally Three times a day for 30 days Active Tylenol 325 MG 1 tablet as needed Orally every 6 hrs Active Colace 100 MG 1 capsule as needed Orally Once a day for 30 day(s) Not-Taking Methocarbamol 750 MG 1 tablet Orally every 8 hours for 30 day(s) Jan, Not-Taking Oxycodone-Acetaminophen 7.5-325 MG 1 tablet as needed Orally every 8 hrs for pain for 30 days Sep, Active Pantoprazole Sodium 40 MG 1 tablet Orally Once a day for 30 day(s) Not-Taking Skelaxin 800 MG 1 tablet Orally Three to four times a day (Pain clini c) Not-Taking TraZODone HCl 150 MG 1 tablet at bedtime Orally Once a day Not-Taking Ibuprofen 200 mg #60 200 mg 2-4 tablets orally every 6-8 hours Active Meclizine HCl 25 MG 1 tablet as needed Orally 3 times a day Not-Taking Melatonin ER 10 MG as directed 2 tablets Orally nightly Not-Taking Singulair 5 MG as directed Orally Ac tive Lyrica 200 MG 1 capsule Orally three times daily (Pain clinic) Not-Taking PROCEDURES No Information RESULTS No Results REASON FOR VISIT SWITCH WITH PRINCIPAL NETWORK ARCHITECT'S MEDICAL (GENERAL) HISTORY Type Description Date Medical [...] No Information FUNCTIONAL STATUS No Information ASSESSMENTS No Information PLAN OF TREATMENT Next Appt Details Provider Name:Romeo Dougherty Ramesh, 2021-01-18 10:00:00 AM, [address] [place], [address], Insurance Providers Payer Name Payer Address Payer Phone Insured Name Patient Relati onship to Insured Coverage Start Date Coverage End Date [place] [id number] [phone] JACKIE ANTHONY self
--- OUTSIDE RECORDS SUMMARY | 2020-12-01 10:43 | CCD | Continuity of Care Document ---
Author Author Roxy DAWKINS A Organization Unknown Address [address] [address] [place] [address] Phone [phone] Care Team Providers Care Hammerer Name Role Phone JENNIFER DAWIKNS AUTM [phone] Social History Type Date Description Comments Sex Unknown Encounters Type Date Location Provider Dx Diagnosis Office Visit 10/25/2020 11:30a [facility] PASCALE Rodriguez K65.2 Spontaneous bacterial perito nitis R42 Dizziness and giddiness J30.9 Allergic rhinitis, unspecifi ed Assessments Date Code Description Provider 10/25/2020 K65.2 Spontaneous bacterial peritoniti s PASCALE Carpenter 10/25/2020 R42 Dizziness and giddiness PASCALE Long 10/25/2020 J30.9 Allergic rhinitis, unspecified F PASCALE Ortega 08/17/2020 M54.2 Cervicalgia PASCALE Hale 08/17/2020 M79.661 Pain in right lower leg PASCALE Long 06/09/2020 G43.909 Migraine, unspecifie d, not intractable, without status migrainosus PASCALE Carpenter 06/09/2020 M54.2 Cervicalgia PASCALE Hale 05/31/2020 M54.2 Cervicalgia PASCALE Hale 05/31/2020 G43.909 Migraine, unspecifie d, not intractable, without status migrainosus PASCALE Carpenter Plan of Treatment Future Appointment(s):* 01/25/2021 10:00 am - PASCALE Carpenter at [facility] Referrals Refer to Reason for Referral Status Appt Date Dave Lagos MD PLEASE EVAL AND TREAT THIS P T W/ C/O BRIGHT RED BLOOD IN STOOL FOR SEVERAL DAYS W/ ABD BLOATING AND DISCOMFORT. NO RECTAL PAIN NO N/V. SHE HAD A FAILED LOWER SCOPE IN THE PAST(REASON UNK). THANK YOU FOR YOUR EVALUATION OF THIS PT. Created [address], [place] [id number] [phone] Gregor Altamirano. PLEASE EVAL AND THREAT THIS PT WITH A CHRONIC H/O DAILY HEADACHES WHICH SHE STATES "AFFECT HER DAILY LIFE" SHE HAD AN APT WITH [facility] FOR WHICH SHE HAS NOT BEEN CONTACTED ABOUT AN APT AND IS REQUESTING TO BE SEEN BY NEURO IS DARDANELLE. SHE DID NOT SUSTAIN ANY TRAUMA RO HEAD NOR DOES SHE HAVE ANY ACUTE NEURO CHANGES. THANK YOU FOR YOUR EVALUATION OF THIS PT. Created [facility] [address] [place] [address] [phone] Pain Clinic @ [facility] PATIENT WITH C/O NECK AND RT . KNEE PAIN. PLEASE EVAL AND TREAT. Sent [address] [place] [address] [phone]
--- OUTSIDE RECORDS SUMMARY | 2020-12-01 10:43 | CCD ---
Author Author [facility] em[facility] Organization [facility] ems Address Unknown Phone Unavailable Care Team Providers Care Fryer Operator Name Role Phone Romeo Chandler Unavailable PROBLEMS Type Condition ICD9-CM Code MAY80-EO Code Onset Dates Condition S tatus W/U Status Risk SNOMED Code Notes Problem Degeneration of lumbar or lumbosacral intervertebral disc 722.52 Active confirmed 19514871 Problem Unspecified internal derangement of knee 717.9 Active confirmed 87555802 Problem Chronic migraine without aur a, without mention of intractable migraine without mention of status migrainosus 346.70 Active co nfirmed 249112384477329 Problem Lumbar disc disease with radiculopathy M51.16 A ctive confirmed 815696392 Problem Insomnia, unspecified 780.52 Active confirmed 218632296 Problem Myalgia M79.1 Active confirmed 14330467 Problem Restless legs syndrome [RLS] 333.94 Active confirme d 58631949 Problem Nondependent tobacco use disorder 305.1 Active confirmed 157688565 Problem Hearing loss of both ears 389.9 Active confirmed 98083854 Problem History of kidney stones V13.01 Active confirmed 286333556 Problem Lumbar facet arthropathy M46.96 Active confirmed 863021737 ALLERGIES Allergen (clinical drug ingredient) Drug/Non Drug Allergy do cumented on EMR Reaction Allergy Type Onset Date Status honey throat closes off Non Drug Allergy A ctive ENCOUNTERS from 1986 to 2020-11-24 Encounter Location Date Provider Diagnosis [facility] [address] [place] [address] Oct, Romeo Chandler IMMUNIZATIONS Vaccine Route Administration Date [...] College Language: Question Answer Notes Languages spoken: East Timorese Sabianist: Question Answer Notes Sabianist 33 None Alcohol Screening: Question Answer Notes [...] as directed 2 tablets Orally daily Not-Taking Tizanidine HCl 6 MG 1 tablet as needed Orally Three times a day for 30 days Active Ceftin 500 mg 1 tablet Orally Twice a day for 7 days 2014 Not-Taking Methocarbamol 750 MG 1 tablet Orally every 8 hours for 30 day(s) Jan, Not-Taking Tizanidine HCl 8 mg 1 tablet as needed Orally every 8 hrs (pain clini c) Not-Taking Lyrica 200 MG 1 capsule Orally Three a day MDD=3 for 90 day(s) Jan, Not-Taking Oxycodone-Acetaminophen 7.5-325 MG 1 tablet as needed Orally every 8 hrs for pain for 30 days Oct, Active CUSTOM DO NO USE Morphine IR 15 mg as directed four ti mes daily as needed (pain clinic) Not-Taking Colace 100 MG 1 capsule as needed Orally Once a day for 30 day(s) Not-Taking Cetirizine HCl 10 MG 1 tablet Orally Once a day for 30 day(s) Active Lyrica 100 MG 1 capsule Orally three times daily for 30 days Mar, Active TraZODone HCl 150 MG 1 tablet at bedtime Orally Once a day Not-Taking Pantoprazole Sodium 40 MG 1 tablet Orally Once a day for 30 day(s) Not-Taking Skelaxin 800 MG 1 tablet Orally Three to four times a day (Pain clini c) Not-Taking Tylenol 325 MG 1 tablet as needed Orally every 6 hrs Active Ibuprofen 200 mg #60 200 mg 2-4 [...] Information RESULTS No Results REASON FOR VISIT NEW BODY PART MEDICAL (GENERAL) HISTORY Type Description Date Medical [...] Information ASSESSMENTS No Information PLAN OF TREATMENT Medication Medication Name Sig Start Date Stop Date Lyrica 100 MG 1 capsule Orally three times daily for 30 days 0 2 Mar, 2020 Oxycodone-Acetaminophen 7.5-325 MG 1 tablet as needed Orally every 8 hrs for pain for 30 days Oct, Tizanidine HCl 6 MG 1 tablet as needed Orally Three times a day for 30 days Next Appt Details Provider Name:Romeo Chandler, 2021-01-18 10:00:00 AM, [address] [place] [address], [phone], Insurance Providers Payer Name Payer Address Payer Phone Insured Name Patient Relati onship to Insured Coverage Start Date Coverage End Date [place] [phone] JACKIE LOPEZ self
--- OUTSIDE RECORDS SUMMARY | 2020-12-01 10:43 | CCD ---
Author Author [facility] ems Organization [facility] ems Address Unknown Phone Unavailable Care Team Providers Care Emergency Room Orderly Name Role Phone Romeo Chandler Unavailable PROBLEMS Type Condition ICD9-CM Code FWC81-KM Code Onset Dates Condition S tatus SNOMED Code Notes Problem Degeneration of lumbar or lumbosacral intervertebral disc 722.52 Active 67860857 Problem Unspecified internal derangement of knee 717.9 Active 00433843 Problem Chronic migraine without aur a, without mention of intractable migraine without mention of status migrainosus 346.70 Active 324808361814642 Problem Lumbar disc disease with radiculopathy M51.16 A ctive 635079987 Problem Insomnia, unspecified 780.52 Active 078348579 Problem Myalgia M79.1 Active 98090814 Problem Restless legs syndrome [RLS] 333.94 Active 329 70908 Problem Nondependent tobacco use disorder 305.1 Active 716108655 Problem Hearing loss of both ears 389.9 Active 358583 01 Problem History of kidney stones V13.01 Active 1757196 08 Problem Lumbar facet arthropathy M46.96 Active 9790653 08 ALLERGIES Allergen (clinical drug ingredient) Drug/Non Drug Allergy do cumented on EMR Reaction Allergy Type Onset Date Status honey throat closes off Non Drug Allergy A ctive ENCOUNTERS from 1986 to 2020-11-11 Encounter Location Date Provider Diagnosis [facility] [address] [place] [address] Oct, Romeo Chandler Lumbar disc disease with radiculopathy M 51.16 IMMUNIZATIONS Vaccine Route Administration Date Status TDAP 0.5mL (Boostrix) IM Intramuscular Jun 02, 2013 Administe red TD Adult 0.5mL (Tetanus) Unknown Jun 02, 2002 Adminis dakotah SOCIAL HISTORY Tobacco Use: Social History Observation Description Date Details (start date - stop date) Former Smoker Sex Assigned At : Social History Observation Description Sex Assigned At Unknown Education: Question Answer Notes Level of Education: College Language: Question Answer Notes Languages spoken: Indonesian Faith: Question Answer Notes Faith 33 None Alcohol Screening: Question Answer Notes [...] Information RESULTS No Results REASON FOR VISIT Oxycodone, Lyrica & tizanidine refill MEDICAL (GENERAL) HISTORY Type Description Date Medical [...] Notes Treatment Notes Treatm ent Clinical Notes Oct, Lumbar disc disease with radiculopathy (ICD-10 - [...] Details Provider Name:Romeo Chandler, 2021-01-18 10:00:00 AM, [address] [place], [address], Insurance Providers Payer Name Payer Address Payer Phone Insured Name Patient Relati onship to Insured Coverage Start Date Coverage End Date [place] [phone] [phone] JACKIE LOPEZ self
--- OUTSIDE RECORDS SUMMARY | 2020-12-01 10:43 | CCD | Continuity of Care Document ---
Author Author Roxy LAGOS M.D. Organization Unknown Address [address] [place] [address] Phone [phone] Care Team Providers Care Wrapping Clerk Name Role Phone Amandeep Vázquez AUTM [phone] Problems Active Problems Provider Date Hemorrhage of rectum and anus Dave Lagos M.D. Onset : 11/23/2020 Social History Type Date Description Comments Sex Unknown ETOH Use Denies alcohol use Tobacco Use Start: Unknown Patient has never smoked Allergies, Adverse Reactions, Alerts Description No Known Drug Allergies Medications Active Medications SIG Qnty Indications Ordering Provide r Date Sutab [id number] Tablets as directed 1box Dave Lagos M.D. [...] Medical Devices Description No Information Available Encounters Description No Information Available Assessments Date Code Description Provider 11/23/2020 R11.2 Nausea and vomiting Dave gruber M.D. 11/23/2020 K52.9 Chronic diarrhea Dave aiken M.D. 11/23/2020 K62.5 Hemorrhage of rectum and anus marimar Lagos M.D. Plan of Treatment Future [...]
--- OUTSIDE RECORDS SUMMARY | 2020-12-01 10:43 | CCD | Continuity of Care Document ---
Author Author Roxy PEREZ M.D. Organization Unknown Address [address] [place] [address] Phone [phone] Care Team Providers Care Stamp Pad Finisher Name Role Phone Bj Mccormack M.D. 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 * 333.1 Tremor Essential & Other Forms* Comments:* Continue proproanolol. * Follow up:* 6 weeks. Functional Status Description No Information Available Mental Status Description No Information Available Referrals Description No Information Available
--- OUTSIDE RECORDS SUMMARY | 2020-12-01 10:43 | CCD ---
Author Author [facility] Organization [facility] Address Unknown Phone Unavailable Care Team Providers Care Application Chemist Name Role Phone Romeo Chandler Unavailable PROBLEMS Type Condition ICD9-CM Code [id number] Code Onset Dates Condition S tatus SNOMED Code Notes Problem Degeneration of lumbar or lumbosacral intervertebral disc 722.52 Active 40891628 Problem Unspecified internal derangement of knee 717.9 Active 08160956 Problem Chronic migraine without aur a, without mention of intractable migraine without mention of status migrainosus 346.70 Active 891201656524008 Problem Lumbar disc disease with radiculopathy M51.16 A ctive 888522903 Problem Insomnia, unspecified 780.52 Active 624003393 Problem Myalgia M79.1 Active 60502284 Problem Restless legs syndrome [RLS] 333.94 Active 329 93720 Problem Nondependent tobacco use disorder 305.1 Active 344772876 Problem Hearing loss of both ears 389.9 Active 316284 01 Problem History of kidney stones V13.01 Active 4126225 08 Problem Lumbar facet arthropathy M46.96 Active 0731305 08 ALLERGIES Allergen (clinical drug ingredient) Drug/Non Drug Allergy do cumented on EMR Reaction Allergy Type Onset Date Status honey throat closes off Non Drug Allergy A ctive ENCOUNTERS from 1986 to 2020-10-22 Encounter Location Date Provider Diagnosis [facility] [address] [place] [id number] Oct, Romeo Chandler Lumbar disc disease with [...] College Language: Question Answer Notes Languages spoken: Kazakh Mosque: Question Answer Notes Mosque 33 None Alcohol Screening: Question Answer Notes Did you have a drink containing alcohol in the past year? No Points 0 Interpretation Negative Tobacco Use: Question Answer Notes Are you a: former smoker How long has it been since you last smoked? 6-12 months REASON FOR REFERRAL No Information VITAL SIGNS Weight 148.8 lbs Oct, Height 65 in Oct, BMI 24.76 kg/m2 Oct, Heart Rate 59 /min Oct, Respiratory Rate 18 /min Oct, Temperature 97.6 degrees Fahrenheit Oct, Oximetry 95% Oct, Blood pressure systolic 113 mm Hg Oct, Blood pressure diastolic 70 mm Hg Oct, MEDICATIONS Medication SIG (Take, Route, Frequency, Duration) [...] Information RESULTS No Results REASON FOR VISIT BACK MEDICAL (GENERAL) HISTORY Type Description Date Medical [...] disc disease with radiculopathy (ICD-10 - M51.16) 35-year-old female in for chronic pain follow-up. Given presenting symptoms recommended continuation of current medication regimen with follow-up in 3 months. Patient has expressed understanding of and was in agreement with treatment plan. Given time to ask questions and express concerns. , [employer]STOP registry reviewed and demonstrates complliance. (Ref #[id number] ) Brings in medications which is appropriate for what was dispensed. Recent urine toxicology reviewed. No unauthorized medications. No illicit substances and prescribed medications were present. PLAN OF TREATMENT Treatment Notes Assessment Notes Clinical Notes Lumbar disc disease with radiculopathy 35-year-old fem pilo in for chronic pain follow-up. Given presenting symptoms recommended continuation of current medication regimen with follow-up in 3 months. Patient has expressed understanding of and was in agreement with treatment plan. Given time to ask questions and express concerns., ISTOP registry reviewed and demonstrates complliance. (Ref #[id number] ) Brings in medications which is appropriate for what was dispensed. Recent urine toxicology reviewed. No unauthorized medications. No illicit substances and prescribed medications were present. Next Appt Details 3 Months Reason:back pain Provider Name:Romeo Chandler, 2021-01-18 10:00:00 AM, [address] [place], [id number], Follow Up:3 Monthsback pain Insurance Providers Payer Name Payer Address Payer Phone Insured Name Patient Relati onship to Insured Coverage Start Date Coverage End Date [place] [id number] [phone] JACKIE LOPEZ self
--- OUTSIDE RECORDS SUMMARY | 2020-12-01 10:44 | CCD ---
Author Author [facility] Organization [facility] Address Unknown Phone Unavailable Care Team Providers Care Robotics Mechanic Name Role Phone Bear Lagos MD Unavailable Unavailable Bear Lagos MD Unavailable Unavailable Bear Lagos MD Unavailable Unavailable Bear Lagos MD Unavailable Unavailable Bear Lagos MD Unavailable Unavailable Bear Lagos MD Unavailable Unavailable Bear Lagos MD Unavailable Unavailable Bear Lagos MD Unavailable Unavailable Bear Lagos MD Unavailable Unavailable Bear Lagos MD Unavailable Unavailable Bear Lagos MD Unavailable Unavailable Bear Lagos MD Unavailable Unavailable Bear Lagos MD Unavailable Unavailable Bear Lagos MD Unavailable Unavailable Bear Lagos MD Unavailable Unavailable Bear Lagos MD Unavailable Unavailable Bear Lagos MD Unavailable Unavailable Bear Lagos MD Unavailable Unavailable Bear Lagos MD Unavailable Unavailable Bear Lagos MD Unavailable Unavailable Bear Lagos MD Unavailable Unavailable Bear Lagos MD Unavailable Unavailable Bear Lagos MD Unavailable Unavailable Bear Lagos MD Unavailable Unavailable Bear Lagos MD Unavailable Unavailable Bear Lagos MD Unavailable Unavailable Bear Lagos MD Unavailable Unavailable Bear Lagos MD Unavailable Unavailable Bear Lagos MD Unavailable Unavailable Bear Lagos MD Unavailable Unavailable Bear Lagos MD Unavailable Unavailable Bear Lagos MD Unavailable Unavailable Bear Lagos MD Unavailable Unavailable Baer Lagos MD Unavailable Unavailable Bear Lagos MD Unavailable Unavailable Bear Lagos MD Unavailable Unavailable Bear Lagos MD Unavailable Unavailable Bear Lagos MD Unavailable Unavailable Bear Lagos MD Unavailable Unavailable Bear Lagos MD Unavailable Unavailable Bear Lagos MD Unavailable Unavailable Bear Lagos MD Unavailable Unavailable Bear Lagos MD Unavailable Unavailable Bear Lagos MD Unavailable Unavailable Bear Lagos MD Unavailable Unavailable Bear Lagos MD Unavailable Unavailable Bear Lagos MD Unavailable Unavailable Bear Lagos MD Unavailable Unavailable Bear Lagos MD Unavailable Unavailable Bear Lagos MD Unavailable Unavailable Trickey, J Jessica PA Unavailable Unavailable Trickey, J Jessica PA Unavailable Unavailable Trickey, J Jessica PA Unavailable Unavailable Trickey, J Jessica PA Unavailable Unavailable Trickey, J Jessica PA Unavailable Unavailable Trickey, J Jessica PA Unavailable Unavailable Trickey, J Jessica PA Unavailable Unavailable Trickey, J Jessica PA Unavailable Unavailable Trickey, J Jessica PA Unavailable Unavailable Trickey, J Jessica PA Unavailable Unavailable Trickey, J Jessica PA Unavailable Unavailable Trickey, J Jessica PA Unavailable Unavailable Trickey, J Jessica PA Unavailable Unavailable Trickey, J Jessica PA Unavailable Unavailable Trickey, J Jessica PA Unavailable Unavailable Trickey, J Jessica PA Unavailable Unavailable Trickey, J Jessica PA Unavailable Unavailable Trickey, J Jessica PA Unavailable Unavailable Trickey, J Jessica PA Unavailable Unavailable Trickey, J Jessica PA Unavailable Unavailable Trickey, J Jessica PA Unavailable Unavailable Trickey, J Jessica PA Unavailable Unavailable Trickey, J Jessica PA Unavailable Unavailable Trickey, J Jessica PA Unavailable Unavailable Trickey, J Jessica PA Unavailable Unavailable Trickey, J Jessica PA Unavailable Unavailable Trickey, J Jessica PA Unavailable Unavailable Trickey, J Jessica PA Unavailable Unavailable Trickey, J Jessica PA Unavailable Unavailable Trickey, J Jessica PA Unavailable Unavailable Trickey, J Jessica PA Unavailable Unavailable Trickey, J Jessica PA Unavailable Unavailable Trickey, J Jessica PA Unavailable Unavailable Trickey, J Jessica PA Unavailable Unavailable Trickey, J Jessica PA Unavailable Unavailable Trickey, J Jessica PA Unavailable Unavailable Trickey, J Jessica PA Unavailable Unavailable Trickey, J Jessica PA Unavailable Unavailable Trickey, J Jessica PA Unavailable Unavailable Trickey, J Jessica PA Unavailable Unavailable Trickey, J Jessica PA Unavailable Unavailable Trickey, J Jessica PA Unavailable Unavailable Trickey, J Jessica PA Unavailable Unavailable Trickey, J Jessica PA Unavailable Unavailable Trickey, J Jessica PA Unavailable Unavailable Trickey, J Jessica PA Unavailable Unavailable Trickey, J Jessica PA Unavailable Unavailable Trickey, J Jessica PA Unavailable Unavailable ANISH, BARBYBOORVILLE CUELLO MD Unavailable Unavailable ANISH, MAQBOORVILLE CUELLO MD Unavailable Unavailable ANISH, BARBYBOORVILLE CUELLO MD Unavailable Unavailable ANISH, BARBYBOORVILLE CUELLO MD Unavailable Unavailable ANISH, BARBYBOORVILLE CUELLO MD Unavailable Unavailable ANISH, MAEstefaniBOORVILLE CUELLO MD Unavailable Unavailable ANISH, REAGAN CUELLO MD Unavailable Unavailable ANISH, REAGAN CUELLO MD Unavailable Unavailable ANISH, REAGAN CUELLO MD Unavailable Unavailable ANISH, REAGAN CUELLO MD Unavailable Unavailable ANISH, BARBYBOORVILLE CUELLO MD Unavailable Unavailable ANISH, REAGAN CUELLO MD Unavailable Unavailable ANISH, BARBYBOORVILLE CUELLO MD Unavailable Unavailable ANISH, BARBYBOORVILLE CUELLO MD Unavailable Unavailable ANISH, LIZQBOORVILLE CUELLO MD Unavailable Unavailable ANISH, MAQBOORVILLE CUELLO MD Unavailable Unavailable ANISH, BARBYBOORVILLE CUELLO MD Unavailable Unavailable ANISH, BARBYBOORVILLE CUELLO MD Unavailable Unavailable ANISH, BARBYBOORVILLE CUELLO MD Unavailable Unavailable ANISH, LIZQBOORVILLE CUELLO MD Unavailable Unavailable ANISH, BARBYBOORVILLE CUELLO MD Unavailable Unavailable ANISH, BARBYBOORVILLE CUELLO MD Unavailable Unavailable ANISH, BARBYBOOL CUATE MD Unavailable Unavailable ANISH, MAQBOOL CUATE MD Unavailable Unavailable ANISH, MAQBOOL CUATE MD Unavailable Unavailable ANISH, MAQBOOL CUATE MD Unavailable Unavailable ANISH, MAQBOOL CUATE MD Unavailable Unavailable ANISH, MAQBOOL CUATE MD Unavailable Unavailable ANISH, MAQBOOL CUATE MD Unavailable Unavailable ANISH, MAQBOOL CUATE MD Unavailable Unavailable ANISH, MAQBOOL CUATE MD Unavailable Unavailable ANISH, MAQBOOL CUATE MD Unavailable Unavailable ANISH, MAQBOOL CUATE MD Unavailable Unavailable ANISH, MAQBOOL CUATE MD Unavailable Unavailable ANISH, MAQBOOL CUATE MD Unavailable Unavailable ANISH, MAQBOOL CUATE MD Unavailable Unavailable ANISH, MAQBOOL CUATE MD Unavailable Unavailable ANISH, MAQBOOL CUATE MD Unavailable Unavailable ANISH, MAQBOOL CUATE MD Unavailable Unavailable ANISH, MAQBOOL CUATE MD Unavailable Unavailable ANISH, MAQBOOL CUATE MD Unavailable Unavailable ANISH, MAQBOOL CUATE MD Unavailable Unavailable ANISH, MAQBOOL CUATE MD Unavailable Unavailable ANISH, MAQBOOL CUATE MD Unavailable Unavailable ANISH, MAQBOOL CUATE MD Unavailable Unavailable ANISH, MAQBOOL CUATE MD Unavailable Unavailable ANISH, MAQBOOL CUATE MD Unavailable Unavailable ANISH, MAQBOOL CUATE MD Unavailable Unavailable ANISH, MAQBOOL CUATE MD Unavailable Unavailable ANISH, MAQBOOL CUATE MD Unavailable Unavailable ANISH, MAQBOOL CUATE MD Unavailable Unavailable ANISH, MAQBOOL CUATE MD Unavailable Unavailable ANISH, MAQBOOL CUATE MD Unavailable Unavailable ANISH, MAQBOOL CUATE MD Unavailable Unavailable ANISH, MAQBOOL CUATE MD Unavailable Unavailable ANISH, MAQBOOL CUATE MD Unavailable Unavailable ANISH, MAQBOOL CUATE MD Unavailable Unavailable ANISH, MAQBOOL CUATE MD Unavailable Unavailable ANISH, MAQBOOL CUATE MD Unavailable Unavailable ANISH, MAQBOOL CUATE MD Unavailable Unavailable ANISH, MAQBOOL CUATE MD Unavailable Unavailable ANISH, MAQBOOL CUATE MD Unavailable Unavailable ANISH, MAQBOOL CUATE MD Unavailable Unavailable ANISH, MAQBOOL CUATE MD Unavailable Unavailable ANISH, MAQBOOL CUATE MD Unavailable Unavailable ANISH, MAQBOOL CUATE MD Unavailable Unavailable ANISH, MAQBOOL CUATE MD Unavailable Unavailable ANISH, MAQBOOL CUATE MD Unavailable Unavailable ANISH, MAQBOOL CUATE MD Unavailable Unavailable ANISH, MAQBOOL CUATE MD Unavailable Unavailable ANISH, MAQBOOL CUATE MD Unavailable Unavailable ANISH, MAQBOOL CUATE MD Unavailable Unavailable ANISH, MAQBOOL CUATE MD Unavailable Unavailable ANISH, MAQBOOL CUATE MD Unavailable Unavailable TONTARSKI, G JENNIFER PA Unavailable Unavailable TONTARSKI, G JENNIFER PA Unavailable Unavailable TONTARSKI, G JENNIFER PA Unavailable Unavailable TONTARSKI, G JENNIFER PA Unavailable Unavailable TONTARSKI, G JENNIFER PA Unavailable Unavailable TONTARSKI, G JENNIFER PA Unavailable Unavailable TONTARSKI, G JENNFIER PA Unavailable Unavailable TONTARSKI, G JENNIFER PA Unavailable Unavailable TONTARSKI, G JENNIFER PA Unavailable Unavailable TONTARSKI, G JENNIFER PA Unavailable Unavailable TONTARSKI, G JENNIFER PA Unavailable Unavailable TONTARSKI, G JENNIFER PA Unavailable Unavailable TONTARSKI, G JENNIFER PA Unavailable Unavailable TONTARSKI, G JENNIFER PA Unavailable Unavailable TONTARSKI, G JENNIFER PA Unavailable Unavailable TONTARSKI, G JENNIFER PA Unavailable Unavailable TONTARSKI, G JENNIFER PA Unavailable Unavailable TONTARSKI, G JENNIFER PA Unavailable Unavailable TONTARSKI, G JENNIFER PA Unavailable Unavailable TONTARSKI, G JENNIFER PA Unavailable Unavailable TONTARSKI, G JENNIFER PA Unavailable Unavailable TONTARSKI, G JENNIFER PA Unavailable Unavailable TONTARSKI, G JENNIFER PA Unavailable Unavailable TONTARSKI, G JENNIFER PA Unavailable Unavailable TONTARSKI, G JENNIFER PA Unavailable Unavailable TONTARSKI, G JENNIFER PA Unavailable Unavailable TONTARSKI, G JENNIFER PA Unavailable Unavailable TONTARSKI, G JENNIFER PA Unavailable Unavailable TONTARSKI, G JENNIFER PA Unavailable Unavailable TONTARSKI, G JENNIFER PA Unavailable Unavailable TONTARSKI, G JENNIFER PA Unavailable Unavailable TONTARSKI, G JENNIFER PA Unavailable Unavailable TONTARSKI, G JENNIFER PA Unavailable Unavailable TONTARSKI, G JENNIFER PA Unavailable Unavailable TONTARSKI, G JENNIFER PA Unavailable Unavailable TONTARSKI, G JENNIFER PA Unavailable Unavailable TONTARSKI, G JENNIFER PA Unavailable Unavailable TONTARSKI, G JENNIFER PA Unavailable Unavailable TONTARSKI, G JENNIFER PA Unavailable Unavailable TONTARSKI, G JENNIFER PA Unavailable Unavailable TONTARSKI, G JENNIFER PA Unavailable Unavailable TONTARSKI, G JENNIFER PA Unavailable Unavailable TONTARSKI, G JENNIFER PA Unavailable Unavailable TONTARSKI, G JENNIFER PA Unavailable Unavailable TONTARSKI, G JENNIFER PA Unavailable Unavailable TONTARSKI, G JENNIFER PA Unavailable Unavailable TONTARSKI, G JENNIFER PA Unavailable Unavailable TONTARSKI, G JENNIFER PA Unavailable Unavailable HUBERT ALEX MD Unavailable Unavailable HUBERT ALEX MD Unavailable Unavailable HUBERT ALEX MD Unavailable Unavailable HUBERT ALEX MD Unavailable Unavailable HUBERT ALEX MD Unavailable Unavailable HUBERT ALEX MD Unavailable Unavailable HUBERT ALEX MD Unavailable Unavailable HUBERT ALEX MD Unavailable Unavailable HUBERT ALEX MD Unavailable Unavailable ADALBERTO HU MD Unavailable Unavailable ADALBERTO HU MD Unavailable Unavailable ADALBERTO HU MD Unavailable Unavailable ADALBERTO HU MD Unavailable Unavailable ADALBERTO HU MD Unavailable Unavailable ADALBERTO HU MD Unavailable Unavailable ADALBERTO HU MD Unavailable Unavailable ADALBERTO HU MD Unavailable Unavailable ADALBERTO HU MD Unavailable Unavailable ADALBERTO HU MD Unavailable Unavailable ADALBERTO HU MD Unavailable Unavailable ADALBERTO HU MD Unavailable Unavailable ADALBERTO HU MD Unavailable Unavailable ADALBERTO HU MD Unavailable Unavailable ADALBERTO HU MD Unavailable Unavailable ADALBERTO HU MD Unavailable Unavailable ADALBERTO HU MD Unavailable Unavailable ADALBERTO HU MD Unavailable Unavailable ADALBERTO HU MD Unavailable Unavailable ADALBERTO HU MD Unavailable Unavailable ADALBERTO HU MD Unavailable Unavailable ADALBERTO HU MD Unavailable Unavailable HU, ADALBERTO MD Unavailable Unavailable HU, ADALBERTO MD Unavailable Unavailable HU, ADALBERTO MD Unavailable Unavailable HU, ADALBERTO MD Unavailable Unavailable HU, ADALBERTO MD Unavailable Unavailable HU, ADALBERTO MD Unavailable Unavailable HU, ADALBERTO MD Unavailable Unavailable HU, ADALBERTO MD Unavailable Unavailable HU, ADALBERTO MD Unavailable Unavailable HU, ADALBERTO MD Unavailable Unavailable HU, ADALBERTO MD Unavailable Unavailable HU, ADALBERTO MD Unavailable Unavailable HU, ADALBERTO MD Unavailable Unavailable HU, ADALBERTO MD Unavailable Unavailable HU, ADALBERTO MD Unavailable Unavailable HU, ADALBERTO MD Unavailable Unavailable HU, ADALBERTO MD Unavailable Unavailable HU, ADALBERTO MD Unavailable Unavailable HU, ADALBERTO MD Unavailable Unavailable HU, ADALBERTO MD Unavailable Unavailable HU, ADALBERTO MD Unavailable Unavailable HU, ADALBERTO MD Unavailable Unavailable HU, ADALBERTO MD Unavailable Unavailable HU, ADALBERTO MD Unavailable Unavailable HU, ADALBERTO MD Unavailable Unavailable HU, ADALBERTO MD Unavailable Unavailable HU, ADALBERTO MD Unavailable Unavailable HU, ADALBERTO MD Unavailable Unavailable HU, ADALBERTO MD Unavailable Unavailable HU, ADALBERTO MD Unavailable Unavailable HU, ADALBERTO MD Unavailable Unavailable HU, ADALBERTO MD Unavailable Unavailable HU, ADALBERTO MD Unavailable Unavailable HU, ADALBERTO MD Unavailable Unavailable HU, ADALBERTO MD Unavailable Unavailable HU, ADALBERTO MD Unavailable Unavailable HU, ADALBERTO MD Unavailable Unavailable HU, ADALBERTO MD Unavailable Unavailable HU, ADALBERTO MD Unavailable Unavailable HU, ADALBERTO MD Unavailable Unavailable HU, ADALBERTO MD Unavailable Unavailable HU, ADALBERTO MD Unavailable Unavailable HU ADALBERTO MD Unavailable Unavailable HU ADALBERTO MD Unavailable Unavailable HU, ADALBERTO MD Unavailable Unavailable HU, ADALBERTO MD Unavailable Unavailable HU, ADALBERTO MD Unavailable Unavailable JUANCHO RODRIGUEZ G Unavailable Unavailable David Perez MD Unavailable Unavailable David Perez MD Unavailable Unavailable AliDavid MD Unavailable Unavailable AliDavid MD Unavailable Unavailable AliDavid MD Unavailable Unavailable AliDavid MD Unavailable Unavailable AliDavid MD Unavailable Unavailable AliDavid MD Unavailable Unavailable AliDavid MD Unavailable Unavailable Ali David MD Unavailable Unavailable AliDavid MD Unavailable Unavailable David Perez MD Unavailable Unavailable David Perez MD Unavailable Unavailable David Perez MD Unavailable Unavailable AliDavid MD Unavailable Unavailable AliDavid MD Unavailable Unavailable Ali, David MD Unavailable Unavailable Ali, David MD Unavailable Unavailable Ali, David MD Unavailable Unavailable Ali, David MD Unavailable Unavailable Ali, David MD Unavailable Unavailable Ali, David MD Unavailable Unavailable Ali, David MD Unavailable Unavailable Ali, David MD Unavailable Unavailable Ali, David MD Unavailable Unavailable Ali, David MD Unavailable Unavailable Ali, David MD Unavailable Unavailable Ali, David MD Unavailable Unavailable Ali, David MD Unavailable Unavailable Ali, David MD Unavailable Unavailable Ali, David MD Unavailable Unavailable Ali, David MD Unavailable Unavailable Ali, David MD Unavailable Unavailable Ali, David MD Unavailable Unavailable Ali, David MD Unavailable Unavailable Ali, David MD Unavailable Unavailable Ali, David MD Unavailable Unavailable Ali, David MD Unavailable Unavailable Ali, David MD Unavailable Unavailable Ali, David MD Unavailable Unavailable Ali, David MD Unavailable Unavailable Ali, David MD Unavailable Unavailable Ali, David MD Unavailable Unavailable Ali, David MD Unavailable Unavailable Ali, David MD Unavailable Unavailable Ali, David MD Unavailable Unavailable Ali, David MD Unavailable Unavailable Ali, David MD Unavailable Unavailable Ali, David MD Unavailable Unavailable Re-disclosure Warning The records that you are about to access may contain information from federally-assisted alcohol or drug abuse programs. If such information is present, then the following federally mandated warning applies: This information has been disclosed to you from records protected by federal confidentiality rules (42 CFR part 2). The federal rules prohibit you from making any further disclosure of this information unless further disclosure is expressly permitted by the written consent of the person to whom it pertains or as otherwise permitted by 42 CFR part 2. A general authorization for the release of medical or other information is NOT sufficient for this purpose. The Federal rules restrict any use of the information to criminally investigate or prosecute any alcohol or drug abuse patient.The records that you are about to access may contain highly sensitive health information, the redisclosure of which is protected by Article 27-F of the [facility] Public Health law. If you continue you may have access to information: Regarding HIV / AIDS; Provided by facilities licensed or operated by the [facility] Office of Mental Health; or Provided by the [facility] Office for People With Developmental Disabilities. If such information is present, then the following [facility] mandated warning applies: This information has been disclosed to you from confidential records which are protected by state law. State law prohibits you from making any further disclosure of this information without the specific written consent of the person to whom it pertains, or as otherwise permitted by law. Any unauthorized further disclosure in violation of state law may result in a fine or alf sentence or both. A general authorization for the release of medical or other information is NOT sufficient authorization for further disc losure. Allergies and Adverse Reactions Type Description Substance Reaction Status Data Source(s ) honey honey honey throat closes off Active eCW1 ( [facility]) honey honey honey throat closes off Active eCW1 ( [facility]) No Known Drug Allergies No Known Drug Allergies [facility] ENVIRONMENTAL seasonal seasonal [place] [facility] Food allergy HONEY HONEY SWELLING [facility] honey honey honey throat closes off Active eCW1 ( [facility]) honey honey honey throat closes off Active eCW1 ( [facility]) Family History Family Member Name Family Member Gender Family Member Status Date o f Status Description Data Source(s) Unknown Unknown Problem MEDENT ([facility]) Encounters Encounter Providers Location Date Indications Data Source(s ) Office Visit Attender: Dave Lagos MD Main Office 01:00:00 PM EST [facility] ([facility] ) Unknown [address] [place] [address] 11/10/2020 12:00:00 AM EST eCW1 ([facility]) Outpatient Attender: David Perez MD Main office - [place] 10/29/2020 07:45:00 AM EST MEDENT ([facility] ) [facility] 10:30:00 AM EST MEDENT (Cuate Tang MD) Unknown [address] [place] [address] 10/21/2020 12:00:00 AM EST eCW1 ([facility]) Outpatient [address] [place] [address] 10/20/2020 12:00:00 AM EST eCW1 ([facility]) Unknown [address] [place] [id number] 10/11/2020 12:00:00 AM EST eCW1 ([facility]) [place] [address] [facility] [place] [address] 08/30/2020 12:00:00 AM EST eCW1 ([facility]) [place] [address] [facility] [address] 08/18/2020 12:00:00 AM EST eCW1 ([facility]) [place] [address] [facility] [facility] [address] 08/18/2020 12:00:00 AM EST eCW1 ([facility]) [place] [address] [facility] [facility] [address] 08/05/2020 12:00:00 AM EDT eCW1 ([facility]) [place] [address] [facility] [address] 07/30/2020 12:00:00 AM EDT eCW1 ([facility]) [place] [address] [facility] [facility] [place] [address] 03/23/2020 12:00:00 AM EDT eCW1 ([facility]) [place]patient [address] [facility] [facility] [address] 03/16/2020 12:00:00 AM EDT eCW1 ([facility]) [facility] [address] [place] [phone] 02/17/2020 12:00:00 AM EDT eCW1 ([facility]) [facility] [address] [place] [phone] 01/28/2020 12:00:00 AM EDT eCW1 ([facility]) [facility] [address] [place] [phone] 01/20/2020 12:00:00 AM EDT eCW1 ([facility]) [facility] [address] [place] [phone] 01/19/2020 12:00:00 AM EDT eCW1 ([facility]) Outpatient Attender: Brayan RODRIGUEZConsultant: Brayan RODRIGUEZ 01/08/2020 03:52:00 PM EDT - 01/08/2020 04:52:00 PM EDT [facility] [address] [place] [phone] 12/15/2019 12:00:00 AM EST eCW1 ([facility]) [facility] [address] [place] [phone] 11/17/2019 12:00:00 AM EST eCW1 ([facility]) Outpatient Attender: HUBERT ALEX MD 10/29/2019 12:00:00 AM [facility] Outpatient Attender: CUATE TANG MDConsultant: ADALBERTO Zee MD 10/24/2019 08:38:00 AM EST - 10/24/2019 09:38:00 AM [facility] Outpatient Referrer: Jessica ASHRAF 10/21/2019 12:01:00 P M EST [facility] Outpatient Attender: ADALBERTO HU MDConsultant: ADALBERTO Zee MD 10/13/2019 08:51:00 AM EST - 10/13/2019 08:51:00 AM [facility] Outpatient Attender: ADALBERTO HU MD Family Practice 10/13/2019 0 8:00:00 AM EST MEDENT ([facility]) Outpatient Attender: ADALBERTO HU MDConsultant: ADALBERTO Zee MD 09/22/2019 09:49:00 AM EST - 09/22/2019 09:49:00 AM [facility] Medications Medication Brand Name Start Date Product Form Dose Route Admi nistrative Instructions Pharmacy Instructions Status Indications Reaction Description Data Source(s) 1.479-0.188 gram 11/24/2020 12:00:00 AM EST tablet 24 USE DIRECTED USE DIRECTED SOLD: 11/24/2020 [facility] 4 mg 11/23/2020 12:00:00 AM EST tablet,disintegrating 9 0 DISSOLVE ONE TABLET ON TONGUE EVERY 4 HOURS NEEDED FOR NAUSEA DISSOLVE ONE TABLET ON TONGUE EVERY 4 HOURS NEEDED FOR NAUSEA SOLD: 11/24/2020 [facility] Sutab Sutab 11/23/2020 12:00:00 AM EST active MEDENT ([facility]) Ondansetron 4 MG Disintegrating Oral Tablet Ondansetron 11/23/2020 12:00:00 AM EST active [facility] ([facility]) 6 mg 11/12/2020 12:00:00 AM EST capsule 90 TAKE ONE CAPSULE BY MOUTH THREE TIMES A DAY NEEDED TAKE ONE CAPSULE BY MOUTH THREE TIMES A DAY NEEDED SOLD: 11/14/2020 [facility] 100 mg 11/12/2020 12:00:00 AM EST capsule 90 TAKE ONE CAPSULE BY MOUTH THREE TIMES A DAY MAXIMUM DAILY DOSE = 3 TAKE ONE CAPSULE BY MOUTH THREE TIMES A DAY MAXIMUM DAILY DOSE = 3 SOLD: 11/14/2020 [facility] Acetaminophen 325 MG / Oxycodone Hydroch loride 7.5 MG Oral Tablet Oxycodone- Acetaminophen 7.5-325 MG Oxycodone-Acetaminophen 7.5-325 MG 11/11/2020 12:00:00 AM EST 1.0 {tablet_as_needed} active Oxycodone-Acetaminophen 7.5-325 MG eCW1 ([facility]) 7.5-325 mg 11/11/2020 12:00:00 AM EST tablet 90 TAKE ONE TABLET BY MOUTH EVERY 8 HOURS NEEDED FOR PAIN TAKE ONE TABLET BY MOUTH EVERY 8 HOURS A S NEEDED FOR PAIN SOLD: 11/12/2020 [facility] Acetaminophen 325 MG / Oxycodone Hydroch loride 7.5 MG Oral Tablet Oxycodone- Acetaminophen 7.5-325 MG Oxycodone-Acetaminophen 7.5-325 MG 11/11/2020 12:00:00 AM EST 1.0 {tablet_as_needed} active Oxycodone-Acetaminophen 7.5-325 MG eCW1 ([facility]) 30 mg 10/29/2020 12:00:00 AM EST tablet 30 TAKE ONE-HALF TABLET BY MOUTH EVERY DAY AT BEDTIME FOR 1 WEEK THEN 1 ONCE DAILY AT BEDTIME TAKE ONE-HALF TABLET BY MOUTH EVERY DAY AT BEDTIME FOR 1 WEEK THEN 1 ONCE DAILY AT BEDTIME SOLD: 10/30/2020 [facility] Mirtazapine 30 MG Oral Tablet Mirtazapine 10/29/2020 12:00:00 AM EST ORAL active [facility] ([facility], ) Acetaminophen 325 MG / Oxycodone Hydroch loride 7.5 MG Oral Tablet Oxycodone- Acetaminophen 7.5-325 MG Oxycodone-Acetaminophen 7.5-325 MG 10/11/2020 12:00:00 AM EST 1.0 {tablet_as_needed} active Oxycodone-Acetaminophen 7.5-325 MG eCW1 (Formerly [facility]) 100 mg 10/11/2020 12:00:00 AM EST capsule 90 TAKE ONE CAPSULE BY MOUTH THREE TIMES A DAY MAXIMUM DAILY DOSE = 3 TAKE ONE CAPSULE BY MOUTH THREE TIMES A DAY MAXIMUM DAILY DOSE = 3 SOLD: 10/11/2020 [facility] 7.5-325 mg 10/11/2020 12:00:00 AM EST tablet 90 TAKE ONE TABLET BY MOUTH EVERY 8 HOURS NEEDED FOR PAIN MAXIMUM DAILY DOSE = 3 TAKE ONE TABLET BY MOUTH EVERY 8 HOURS NEEDED FOR PAIN MAXIMUM DAILY DOSE = 3 SOLD: 10/11/2020 [facility] 6 mg 10/11/2020 12:00:00 AM EST capsule 90 TAKE ONE CAPSULE BY MOUTH THREE TIMES A DAY NEEDED TAKE ONE CAPSULE BY MOUTH THREE TIMES A DAY NEEDED SOLD: 10/11/2020 [facility] Acetaminophen 325 MG / Oxycodone Hydroch loride 7.5 MG Oral Tablet Oxycodone- Acetaminophen 7.5-325 MG Oxycodone-Acetaminophen 7.5-325 MG 10/11/2020 12:00:00 AM EST 1.0 {tablet_as_needed} active Oxycodone-Acetaminophen 7.5-325 MG eCW1 (Formerly [facility]) Acetaminophen 325 MG / Oxycodone Hydroch loride 7.5 MG Oral Tablet Oxycodone- Acetaminophen 7.5-325 MG Oxycodone-Acetaminophen 7.5-325 MG 10/11/2020 12:00:00 AM EST 1.0 {tablet_as_needed} active Oxycodone-Acetaminophen 7.5-325 MG eCW1 (Formerly [facility]) 7.5-325 mg 08/31/2020 12:00:00 AM EST tablet 90 TAKE ONE TABLET BY MOUTH EVERY 8 HOURS NEEDED FOR PAIN TAKE ONE TABLET BY MOUTH EVERY 8 HOURS A S NEEDED FOR PAIN SOLD: 08/31/2020 [facility] Acetaminophen 325 MG / Oxycodone Hydroch loride 7.5 MG Oral Tablet Oxycodone- Acetaminophen 7.5-325 MG Oxycodone-Acetaminophen 7.5-325 MG 08/31/2020 12:00:00 AM EST 1.0 {tablet_as_needed} active Oxycodone-Acetaminophen 7.5-325 MG eCW1 (Formerly [facility]) 100 mg 08/31/2020 12:00:00 AM EST capsule 90 TAKE ONE CAPSULE BY MOUTH THREE TIMES A DAY TAKE ONE CAPSULE BY MOUTH THREE TIMES A DAY SOLD: 08/31/2020 [facility] montelukast 10 MG Oral Tablet MONTELUKAST SODIUM 08/11/2020 12:0 0:00 AM EDT tablet 30 TAKE ONE TABLET BY MOUTH EVERY D AY TAKE ONE TABLET BY MOUTH EVERY DAY SOLD: 11/27/2020 [facility] montelukast 10 MG Oral Tablet MONTELUKAST SODIUM 08/11/2020 12:0 0:00 AM EDT tablet 30 TAKE ONE TABLET BY MOUTH EVERY D AY TAKE ONE TABLET BY MOUTH EVERY DAY SOLD: 08/13/2020 [facility] montelukast 10 MG Oral Tablet MONTELUKAST SODIUM 08/11/2020 12:0 0:00 AM EDT tablet 30 TAKE ONE TABLET BY MOUTH EVERY D AY TAKE ONE TABLET BY MOUTH EVERY DAY SOLD: 10/24/2020 [facility] montelukast 10 MG Oral Tablet MONTELUKAST SODIUM 08/11/2020 12:0 0:00 AM EDT tablet 30 TAKE ONE TABLET BY MOUTH EVERY D AY TAKE ONE TABLET BY MOUTH EVERY DAY SOLD: 09/25/2020 [facility] 5-325 mg 08/10/2020 12:00:00 AM EDT tablet 90 TAKE ONE TABLET BY MOUTH EVERY 8 HOURS NEEDED FOR PAIN * MAXIMUM DAILY DOSE = 3 TAKE ONE TABLET BY MOUTH EVERY 8 HOURS NEEDED FOR PAIN * MAXIMUM DAILY DOSE = 3 SOLD: 08/10/2020 [facility] Acetaminophen 325 MG / Oxycodone Hydroch loride 5 MG Oral Tablet Oxycodone- Acetaminophen 5-325 MG Oxycodone-Acetaminophen 5-325 MG 08/06/2020 12:00:00 A M EDT 1.0 {tablet_as_needed} active O xycodone-Acetaminophen 5-325 MG eCW1 (Formerly [facility]) Acetaminophen 325 MG / Oxycodone Hydroch loride 7.5 MG Oral Tablet Oxycodone- Acetaminophen 7.5-325 MG Oxycodone-Acetaminophen 7.5-325 MG 08/06/2020 12:00:00 AM EDT 1.0 {tablet_as_needed} active Oxycodone-Acetaminophen 7.5-325 MG eCW1 (Formerly [facility]) Acetaminophen 325 MG / Oxycodone Hydroch loride 5 MG Oral Tablet Oxycodone- Acetaminophen 5-325 MG Oxycodone-Acetaminophen 5-325 MG 08/02/2020 12:00:00 A M EDT 1.0 {tablet_as_needed} active O xycodone-Acetaminophen 5-325 MG eCW1 (Formerly [facility]) 5-325 mg 07/10/2020 12:00:00 AM EDT tablet 90 TAKE ONE TABLET BY MOUTH EVERY 8 HOURS NEEDED FOR PAIN MAXIMUM DAILY DOSE = 3 TABLETS TAKE ONE TABLET BY MOUTH EVERY 8 HOURS NEEDED FOR PAIN MAXIMUM DAILY DOSE = 3 TABLETS SOLD: 07/12/2020 [facility] 100 mg 07/10/2020 12:00:00 AM EDT capsule 90 TAKE ONE CAPSULE BY MOUTH THREE TIMES A DAY MAXIMUM DAILY DOSE = 3 CAPSULES TAKE ONE CAPSULE BY MOUTH THREE TIMES A DAY MAXIMUM DAILY DOSE = 3 CAPSULES SOLD: 07/12/2020 [facility] 6 mg 07/06/2020 12:00:00 AM EDT capsule 90 TAKE ONE CAPSULE BY MOUTH THREE TIMES A DAY NEEDED TAKE ONE CAPSULE BY MOUTH THREE TIMES A DAY NEEDED SOLD: 08/21/2020 [facility] 6 mg 07/06/2020 12:00:00 AM EDT capsule 90 TAKE ONE CAPSULE BY MOUTH THREE TIMES A DAY NEEDED TAKE ONE CAPSULE BY MOUTH THREE TIMES A DAY NEEDED SOLD: 07/09/2020 [facility] 5-325 mg 06/11/2020 12:00:00 AM EDT tablet 90 TAKE ONE TABLET BY MOUTH THREE TIMES A DAY NEEDED, MAXIMUM DAILY DOSE = 3 TAKE ONE TABLET BY MOUTH THREE TIMES A DAY NEEDED, MAXIMUM DAILY DOSE = 3 SOLD: 06/11/2020 [facility] 100 mg 06/11/2020 12:00:00 AM EDT capsule 90 TAKE ONE CAPSULE BY MOUTH THREE TIMES A DAY, MAXIMUM DAILY DOSE = 3 TAKE ONE CAPSULE BY MOUTH THREE TIMES A DAY, MAXIMUM DAILY DOSE = 3 SOLD: 06/11/2020 [facility] 20 mg 05/31/2020 12:00:00 AM EDT tablet 14 TAKE ONE TABLET BY MOUTH TWICE A DAY TAKE ONE TABLET BY MOUTH TWICE A DAY SOLD: 05/31/2020 [facility] 4 mg 05/31/2020 12:00:00 AM EDT tablet 60 TAKE ONE TABLET BY MOUTH THREE TIMES A DAY NEEDED TAKE ONE TABLET BY MOUTH THREE TIMES A DAY NEEDED S OLD: 05/31/2020 [facility] 5-325 mg 05/13/2020 12:00:00 AM EDT tablet 60 TAKE ONE TABLET BY MOUTH EVERY 12 HOURS NEEDED FOR PAIN MAXIMUM DAILY DOSE = 2 TAKE ONE TABLET BY MOUTH EVERY 12 HOURS NEEDED FOR PAIN MAXIMUM DAILY DOSE = 2 SOLD: 05/13/2020 [facility] 100 mg 05/12/2020 12:00:00 AM EDT capsule 60 TAKE ONE CAPSULE BY MOUTH TWICE A DAY MAXIMUM DAILY DOSE = 2 TAKE ONE CAPSULE BY MOUTH TWICE A DAY MA XIMUM DAILY DOSE = 2 SOLD: 05/13/2020 [facility] 6 mg 04/16/2020 12:00:00 AM EDT capsule 90 TAKE ONE CAPSULE BY MOUTH THREE TIMES A DAY NEEDED TAKE ONE CAPSULE BY MOUTH THREE TIMES A DAY NEEDED SOLD: 04/19/2020 [facility] 75 mg 04/16/2020 12:00:00 AM EDT capsule 60 TAKE ONE CAPSULE BY MOUTH TWICE A DAY MAXIMUM DAILY DOSE = 2 TAKE ONE CAPSULE BY MOUTH TWICE A DAY MA XIMUM DAILY DOSE = 2 SOLD: 04/19/2020 [facility] 5-325 mg 04/14/2020 12:00:00 AM EDT tablet 60 TAKE ONE TABLET BY MOUTH EVERY 12 HOURS NEEDED FOR PAIN MAXIMUM DAILY DOSE = 2 TAKE ONE TABLET BY MOUTH EVERY 12 HOURS NEEDED FOR PAIN MAXIMUM DAILY DOSE = 2 SOLD: 04/14/2020 [facility] 150 mg 04/01/2020 12:00:00 AM EDT tablet 30 TAKE ONE TABLET BY MOUTH AT BEDTIME TAKE ONE TABLET BY MOUTH AT BEDTIME SOLD: 04/06/2020 [facility] pregabalin 75 MG Oral Capsule [Lyrica] Lyrica 75 MG Lyrica 7 5 MG 03/16/2020 12:00:00 AM EDT 1.0 {capsule} active L yrica 75 MG eCW1 (Formerly [facility]) Acetaminophen 325 MG / Hydrocodone Noé trate 5 MG Oral Tablet [Avalon] Avalon 5- 325 MG Avalon 5-325 MG 03/16/2020 12:00:00 AM EDT 1.0 {tablet_as_needed} active Avalon 5-325 MG eCW1 (Formerly [facility]) Acetaminophen 325 MG / Hydrocodone Noé trate 5 MG Oral Tablet [Avalon] Avalon 5- 325 MG Avalon 5-325 MG 03/16/2020 12:00:00 AM EDT 1.0 {tablet_as_needed} active Avalon 5-325 MG eCW1 (Formerly [facility]) pregabalin 75 MG Oral Capsule [Lyrica] Lyrica 75 MG Lyrica 7 5 MG 03/16/2020 12:00:00 AM EDT 1.0 {capsule} active L yrica 75 MG eCW1 ([facility]) 5-325 mg 03/16/2020 12:00:00 AM EDT tablet 60 TAKE ONE TABLET BY MOUTH EVERY 12 HOURS NEEDED MAXIMUM DAILY DOSE = 2 TAKE ONE TABLET BY MOUTH EVERY 12 HOURS NEEDED MAXIMUM DAILY DOSE = 2 SOLD: 03/16/2020 [facility] pregabalin 100 MG Oral Capsule [Lyrica] Lyrica 100 MG Lyrica 100 MG 03/16/2020 12:00:00 AM EDT 1.0 {capsule} active L yrica 100 MG eCW1 ([facility]) pregabalin 100 MG Oral Capsule [Lyrica] Lyrica 100 MG Lyrica 100 MG 03/16/2020 12:00:00 AM EDT 1.0 {capsule} active L yrica 100 MG eCW1 ([facility]ly [facility]) pregabalin 100 MG Oral Capsule [Lyrica] Lyrica 100 MG Lyrica 100 MG 03/16/2020 12:00:00 AM EDT 1.0 {capsule} active L yrica 100 MG eCW1 ([facility]) pregabalin 75 MG Oral Capsule [Lyrica] Lyrica 75 MG Lyrica 7 5 MG 03/16/2020 12:00:00 AM EDT 1.0 {capsule} active L yrica 75 MG eCW1 ([facility]) pregabalin 100 MG Oral Capsule [Lyrica] Lyrica 100 MG Lyrica 100 MG 03/16/2020 12:00:00 AM EDT 1.0 {capsule} active L yrica 100 MG eCW1 ([facility]) pregabalin 100 MG Oral Capsule [Lyrica] Lyrica 100 MG Lyrica 100 MG 03/16/2020 12:00:00 AM EDT 1.0 {capsule} active L yrica 100 MG eCW1 ([facility]) pregabalin 75 MG Oral Capsule [Lyrica] Lyrica 75 MG Lyrica 7 5 MG 03/16/2020 12:00:00 AM EDT 1.0 {capsule} active L yrica 75 MG eCW1 ([facility]) 6 mg 03/16/2020 12:00:00 AM EDT capsule 90 TAKE ONE CAPSULE BY MOUTH THREE TIMES A DAY NEEDED TAKE ONE CAPSULE BY MOUTH THREE TIMES A DAY NEEDED SOLD: 03/17/2020 [facility] pregabalin 100 MG Oral Capsule [Lyrica] Lyrica 100 MG Lyrica 100 MG 03/16/2020 12:00:00 AM EDT 1.0 {capsule} active L yrica 100 MG eCW1 ([facility]) pregabalin 100 MG Oral Capsule [Lyrica] Lyrica 100 MG Lyrica 100 MG 03/16/2020 12:00:00 AM EDT 1.0 {capsule} active L yrica 100 MG eCW1 ([facility]) 5-325 mg 02/17/2020 12:00:00 AM EDT tablet 30 TAKE ONE TABLET BY MOUTH EVERY DAY NEEDED MAXIMUM DAILY DOSE = 1 TAKE ONE TABLET BY MOUTH EVERY DAY NEEDED MAXIMUM DAILY DOSE = 1 SOLD: 02/17/2020 [facility] 25 mg 02/17/2020 12:00:00 AM EDT tablet 45 TAKE ONE TABLET BY MOUTH THREE TIMES A DAY NEEDED FOR VERTIGO TAKE ONE TABLET BY MOUTH THREE TIMES A D AY NEEDED FOR VERTIGO SOLD: 02/20/2020 [facility] Acetaminophen 325 MG / Hydrocodone Noé trate 5 MG Oral Tablet [Avalon] Avalon 5- 325 MG Avalon 5-325 MG 02/17/2020 12:00:00 AM EDT a ctive 1 tablet as needed eCW1 ([facility]) 25 mg 02/17/2020 12:00:00 AM EDT tablet 45 TAKE ONE TABLET BY MOUTH THREE TIMES A DAY NEEDED FOR VERTIGO TAKE ONE TABLET BY MOUTH THREE TIMES A D AY NEEDED FOR VERTIGO SOLD: 04/06/2020 [facility] 1 gram 02/17/2020 12:00:00 AM EDT tablet 120 TAKE ONE TABLET BY MOUTH FOUR TIMES A DAY TAKE ONE TABLET BY MOUTH FOUR TIMES A DAY SOLD: 02/20/2020 [facility] tramadol hydrochloride 50 MG Oral Tablet TRAMADOL HCL 01/28/2020 12:00:00 AM EDT tablet 30 TAKE ONE TABLET BY MOUTH EVERY DAY NEEDED MAXIMUM DAILY DOSE = 1 TAKE ONE TABLET BY MOUTH EVERY DAY NEEDED MAXIMUM D AILY DOSE = 1 SOLD: 01/28/2020 [facility] 4 mg 01/28/2020 12:00:00 AM EDT tablet 90 TAKE ONE TABLET BY MOUTH THREE TIMES A DAY NEEDED TAKE ONE TABLET BY MOUTH THREE TIMES A DAY NEEDED S OLD: 01/28/2020 [facility] 10 mg 01/22/2020 12:00:00 AM EDT tablet 30 TAKE ONE TABLET BY MOUTH EVERY DAY TAKE ONE TABLET BY MOUTH EVERY DAY SOLD: 01/27/2020 [facility] tramadol hydrochloride 50 MG Oral Tablet Tramadol HCl 50 MG Tramadol HCl 50 MG 01/20/2020 12:00:00 AM EDT active 1 tablet as needed [facility] ([facility]) 20 mg 01/08/2020 12:00:00 AM EDT tablet 14 TAKE ONE TABLET BY MOUTH TWICE A DAY TAKE ONE TABLET BY MOUTH TWICE A DAY SOLD: 01/09/2020 [facility] 10 gram/15 mL 12/30/2019 12:00:00 AM EDT solution 900 TAKE 30 MLS BY MOUTH ONCE DAILY TAKE 30 MLS BY MOUTH ONCE DAILY SOLD: 01/02/2020 [facility] montelukast 10 MG Oral Tablet MONTELUKAST SODIUM 12/25/2019 12:0 0:00 AM EDT tablet 30 TAKE ONE TABLET BY MOUTH EVERY D AY TAKE ONE TABLET BY MOUTH EVERY DAY SOLD: 05/10/2020 [facility] montelukast 10 MG Oral Tablet MONTELUKAST SODIUM 12/25/2019 12:0 0:00 AM EDT tablet 30 TAKE ONE TABLET BY MOUTH EVERY D AY TAKE ONE TABLET BY MOUTH EVERY DAY SOLD: 07/12/2020 [facility] montelukast 10 MG Oral Tablet MONTELUKAST SODIUM 12/25/2019 12:0 0:00 AM EDT tablet 30 TAKE ONE TABLET BY MOUTH EVERY D AY TAKE ONE TABLET BY MOUTH EVERY DAY SOLD: 12/25/2019 [facility] 40 mg 12/25/2019 12:00:00 AM EDT capsule,delayed release (DR/EC) 30 TAKE ONE CAPSULE BY MOUTH EVERY DAY TAKE ONE CAPSULE BY MOUTH EVERY DAY SOLD: 06/11/2020 [facility] 40 mg 12/25/2019 12:00:00 AM EDT capsule,delayed release (DR/EC) 30 TAKE ONE CAPSULE BY MOUTH EVERY DAY TAKE ONE CAPSULE BY MOUTH EVERY DAY SOLD: 04/06/2020 [facility] montelukast 10 MG Oral Tablet MONTELUKAST SODIUM 12/25/2019 12:0 0:00 AM EDT tablet 30 TAKE ONE TABLET BY MOUTH EVERY D AY TAKE ONE TABLET BY MOUTH EVERY DAY SOLD: 02/20/2020 [facility] 40 mg 12/25/2019 12:00:00 AM EDT capsule,delayed release (DR/EC) 30 TAKE ONE CAPSULE BY MOUTH EVERY DAY TAKE ONE CAPSULE BY MOUTH EVERY DAY SOLD: 01/27/2020 [facility] montelukast 10 MG Oral Tablet MONTELUKAST SODIUM 12/25/2019 12:0 0:00 AM EDT tablet 30 TAKE ONE TABLET BY MOUTH EVERY D AY TAKE ONE TABLET BY MOUTH EVERY DAY SOLD: 06/11/2020 [facility] 1 gram 12/25/2019 12:00:00 AM EDT tablet 120 TAKE ONE TABLET BY MOUTH FOUR TIMES A DAY TAKE ONE TABLET BY MOUTH FOUR TIMES A DAY SOLD: 12/25/2019 [facility] 40 mg 12/25/2019 12:00:00 AM EDT capsule,delayed release (DR/EC) 30 TAKE ONE CAPSULE BY MOUTH EVERY DAY TAKE ONE CAPSULE BY MOUTH EVERY DAY SOLD: 02/23/2020 [facility] 40 mg 12/25/2019 12:00:00 AM EDT capsule,delayed release (DR/EC) 30 TAKE ONE CAPSULE BY MOUTH EVERY DAY TAKE ONE CAPSULE BY MOUTH EVERY DAY SOLD: 05/10/2020 [facility] montelukast 10 MG Oral Tablet MONTELUKAST SODIUM 12/25/2019 12:0 0:00 AM EDT tablet 30 TAKE ONE TABLET BY MOUTH EVERY D AY TAKE ONE TABLET BY MOUTH EVERY DAY SOLD: 04/06/2020 [facility] 40 mg 12/25/2019 12:00:00 AM EDT capsule,delayed release (DR/EC) 30 TAKE ONE CAPSULE BY MOUTH EVERY DAY TAKE ONE CAPSULE BY MOUTH EVERY DAY SOLD: 12/25/2019 [facility] 150 mcg 12/16/2019 12:00:00 AM EST film [address] PLACE ONE FILM BUCCALLY EVERY 12 HOURS MAXIMUM DAILY DOSE = 2 PLACE ONE FILM BUCCALLY EVERY 12 HOURS M AXIMUM DAILY DOSE = 2 SOLD: 12/22/2019 [facility] tizanidine 4 MG Oral Tablet Tizanidine HCl 4 MG Tizanidine H Cl 4 MG 12/15/2019 12:00:00 AM EST active 1 tablet as needed eCW1 ([facility]) tizanidine 4 MG Oral Tablet Tizanidine HCl 4 MG Tizanidine H Cl 4 MG 12/15/2019 12:00:00 AM EST active 1 tablet as needed eCW1 ([facility]) 150 mg 11/24/2019 12:00:00 AM EST tablet 30 TAKE ONE TABLET BY MOUTH AT BEDTIME TAKE ONE TABLET BY MOUTH AT BEDTIME SOLD: 12/25/2019 [facility] 150 mg 11/24/2019 12:00:00 AM EST tablet 30 TAKE ONE TABLET BY MOUTH AT BEDTIME TAKE ONE TABLET BY MOUTH AT BEDTIME SOLD: 11/25/2019 [facility] 150 mg 11/24/2019 12:00:00 AM EST tablet 30 TAKE ONE TABLET BY MOUTH AT BEDTIME TAKE ONE TABLET BY MOUTH AT BEDTIME SOLD: 02/20/2020 [facility] 75 mcg 11/18/2019 12:00:00 AM EST film 60 PL[address] 1 FILM BETWEEN GUM AND CHEEK EVERY [address] 1 FILM BETWEEN GUM AND CHEEK EVERY 12 HOURS SOLD : 11/18/2019 [facility] [place] 150 MCG [place] 150 MCG 11/17/2019 12:00:00 AM EST active 1 film to the gum eCW1 ([facility]) [place] 75 MCG [place] 75 MCG 11/17/2019 12:00:00 AM EST active 1 film to the gum eCW1 ([facility]) [place] 150 MCG [place] 150 MCG 11/17/2019 12:00:00 AM EST active 1 film to the gum eCW1 ([facility]) 100 mg 10/29/2019 12:00:00 AM EST tablet 30 TAKE ONE TABLET BY MOUTH AT BEDTIME NEEDED TAKE ONE TABLET BY MOUTH AT BEDTIME NEEDED SOLD: [facility] 25 mg 10/23/2019 12:00:00 AM EST tablet 45 TAKE ONE TABLET BY MOUTH THREE TIMES A DAY NEEDED FOR VERTIGO TAKE ONE TABLET BY MOUTH THREE TIMES A D AY NEEDED FOR VERTIGO SOLD: 12/22/2019 [facility] 25 mg 10/23/2019 12:00:00 AM EST tablet 45 TAKE ONE TABLET BY MOUTH THREE TIMES A DAY NEEDED FOR VERTIGO TAKE ONE TABLET BY MOUTH THREE TIMES A D AY NEEDED FOR VERTIGO SOLD: 01/27/2020 [facility] 10 mg 10/23/2019 12:00:00 AM EST tablet 30 TAKE ONE TABLET BY MOUTH EVERY DAY TAKE ONE TABLET BY MOUTH EVERY DAY SOLD: 10/23/2019 [facility] 10 mg 10/23/2019 12:00:00 AM EST tablet 30 TAKE ONE TABLET BY MOUTH EVERY DAY TAKE ONE TABLET BY MOUTH EVERY DAY SOLD: 12/22/2019 [facility] montelukast 10 MG Oral Tablet MONTELUKAST SODIUM 10/23/2019 12:0 0:00 AM EST tablet 30 TAKE ONE TABLET BY MOUTH EVERY D AY TAKE ONE TABLET BY MOUTH EVERY DAY SOLD: 12/22/2019 [facility] 25 mg 10/23/2019 12:00:00 AM EST tablet 45 TAKE ONE TABLET BY MOUTH THREE TIMES A DAY NEEDED FOR VERTIGO TAKE ONE TABLET BY MOUTH THREE TIMES A D AY NEEDED FOR VERTIGO SOLD: 10/23/2019 [facility] montelukast 10 MG Oral Tablet MONTELUKAST SODIUM 10/23/2019 12:0 0:00 AM EST tablet 30 TAKE ONE TABLET BY MOUTH EVERY D AY TAKE ONE TABLET BY MOUTH EVERY DAY SOLD: 10/23/2019 [facility] montelukast 10 MG Oral Tablet MONTELUKAST SODIUM 10/23/2019 12:0 0:00 AM EST tablet 30 TAKE ONE TABLET BY MOUTH EVERY D AY TAKE ONE TABLET BY MOUTH EVERY DAY SOLD: 11/17/2019 [facility] 25 mg 10/23/2019 12:00:00 AM EST tablet 45 TAKE ONE TABLET BY MOUTH THREE TIMES A DAY NEEDED FOR VERTIGO TAKE ONE TABLET BY MOUTH THREE TIMES A D AY NEEDED FOR VERTIGO SOLD: 11/17/2019 [facility] 10 mg 10/23/2019 12:00:00 AM EST tablet 30 TAKE ONE TABLET BY MOUTH EVERY DAY TAKE ONE TABLET BY MOUTH EVERY DAY SOLD: 11/17/2019 [facility] duloxetine 60 MG Delayed Release Oral Capsule [Cymbalta] Cym eren 10/13/2019 12:00:00 AM EST ORAL active [facility] ([facility]) 5-325 mg 10/13/2019 12:00:00 AM EST tablet 30 TAKE ONE TABLET BY MOUTH AT BEDTIME MAXIMUM DAILY DOSE = 1 TAKE ONE TABLET BY MOUTH AT BEDTIME MAXI MUM DAILY DOSE = 1 SOLD: 10/13/2019 [facility] 5 mg 10/13/2019 12:00:00 AM EST tablet 30 TAKE ONE TABLET BY MOUTH EVERY 6 HOURS NEEDED TAKE ONE TABLET BY MOUTH EVERY 6 HOURS NEEDED SOLD: 10/14/2019 [facility] 60 mg 10/13/2019 12:00:00 AM EST capsule,delayed release (DR/EC) 30 TAKE ONE CAPSULE BY MOUTH EVERY DAY TAKE ONE CAPSULE BY MOUTH EVERY DAY SOLD: 10/14/2019 [facility] Acetaminophen 325 MG / Hydrocodone Bitartrate 5 MG Ora l Tablet Hydrocodone-Acetaminophen 10/13/2019 12:00:00 AM EST ORAL active [facility] ([facility]) 300 mg 10/06/2019 12:00:00 AM EST capsule 180 TAKE TWO CAPSULES BY MOUTH THREE TIMES A DAY TAKE TWO CAPSULES BY MOUTH THREE TIMES A DAY SOLD: 9 [facility] gabapentin 300 MG Oral Capsule Gabapentin 10/06/2019 12:00:00 AM EST active [facility] ([facility]) 40 mg 09/23/2019 12:00:00 AM EST tablet,delayed release (DR/EC) 30 TAKE ONE TABLET BY MOUTH EVERY DAY TAKE ONE TABLET BY MOUTH EVERY DAY SOLD: 11/17/2019 [facility] 40 mg 09/23/2019 12:00:00 AM EST tablet,delayed release (DR/EC) 30 TAKE ONE TABLET BY MOUTH EVERY DAY TAKE ONE TABLET BY MOUTH EVERY DAY SOLD: 01/27/2020 [facility] 40 mg 09/23/2019 12:00:00 AM EST tablet,delayed release (DR/EC) 30 TAKE ONE TABLET BY MOUTH EVERY DAY TAKE ONE TABLET BY MOUTH EVERY DAY SOLD: 04/06/2020 [facility] 40 mg 09/23/2019 12:00:00 AM EST tablet,delayed release (DR/EC) 30 TAKE ONE TABLET BY MOUTH EVERY DAY TAKE ONE TABLET BY MOUTH EVERY DAY SOLD: 02/23/2020 [facility] 40 mg 09/23/2019 12:00:00 AM EST tablet,delayed release (DR/EC) 30 TAKE ONE TABLET BY MOUTH EVERY DAY TAKE ONE TABLET BY MOUTH EVERY DAY SOLD: 10/21/2019 [facility] 40 mg 09/23/2019 12:00:00 AM EST tablet,delayed release (DR/EC) 30 TAKE ONE TABLET BY MOUTH EVERY DAY TAKE ONE TABLET BY MOUTH EVERY DAY SOLD: 12/22/2019 [facility] duloxetine 30 MG Delayed Release Oral Capsule [Cymbalta] [facility] 09/22/2019 12:00:00 AM EST ORAL completed [facility] ([facility]) gabapentin 800 MG Oral Tablet Gabapentin 09/22/2019 12:00:00 AM EST ORAL completed [facility] ([facility]) Zolpidem tartrate 5 MG Oral Tablet [Ambien] Ambien 09/22/2019 12:00:00 AM EST ORAL completed [facility] ([facility]) Insurance Providers Payer name Policy type / Coverage type Policy ID Covered green party ID Covered green party's relationship to zamora Policy Zamora Plan Information [facility] [id number] SP [id number] USP AT [facility] [id number] 18 [id number] [facility] O [id number] S [id number] [facility] CO [id number] USFHP AT [facility] [place] [id number] 18 [id number] [facility] HEALTHCARE [id number] SP [id number] [facility] HE[facility]AN U [id number] Se lf [id number] USFHP AT [facility] [id number] 18 [id number] [facility] Commercial [id number] Family Dependent [id number] [facility] Commercial [id number] Self [id number] [facility] Commercial [id number] Family Dependent [id number] [facility] Commercial [id number] Self [id number] [facility] Commercial [id number] Family Dependent [id number] [employer] [id number] Self [id number] [employer] [id number] Family Dependent [id number] [facility] [employer] Commercial [id number] Self 000 [id number] [facility] AT [facility] [id number] 18 [id number] [employer] [id number] Family Dependent [id number] [facility] [employer] [id number] Self 000 [id number] [employer] [id number] Family Dependent [id number] [facility] [employer] [id number] Self 000 [id number] [employer] [id number] Family Dependent [id number] [facility] [employer] [id number] Self 000 [id number] [employer] [id number] Family Dependent [id number] [facility] [employer] [id number] Self [id number] [employer] [id number] Family Dependent [id number] [facility] [employer] [id number] Self [id number] ANSI-Commercial [id number] [employer] [id number] Family Dependent [id number] [facility] [employer] [id number] Self [id number] [facility] PI PI [facility] [id number] Savita [id number] [employer] [id number] Family Dependent [id number] [facility] [employer] [id number] Self 000 [id number] [employer] [id number] Family Dependent [id number] [facility] [employer] [id number] Self 000 [id number] [employer] [id number] Family Dependent [id number] [facility] [employer] [id number] Self 000 [id number] [facility] Commercial [id number] Family Dependent [id number] [facility] [employer] [id number] Self [id number] [facility] Commercial [id number] Family Dependent [id number] [facility] [employer] [id number] Self 000 [id number] [facility] AT [facility] [id number] 18 [id number] [facility] Commercial [id number] Family Dependent [id number] [facility] Commercial [id number] Self [id number] [facility] [id number] 01 [id number] [facility] AT [facility] -I/P [id number] 18 [id number] [employer] P [id number] S [id number] N [employer]IONAL CLAIMS [facility] -O/P [id number] 01 [id number] N REGIONAL CLAIMS [facility]-PHYSICIAN [id number] 01 [id number] N REGIONAL CLAIMS [facility]-RECURRING [id number] 01 [id number] [facility] [id number] 1 [id number] SELF PAY UNAVAILABLE UNAVAILA BLE [facility] P [id number] S [id number] [facility] UNKNOWN SP UNKNOWN [facility] [id number] Problems, Conditions, and Diagnoses Code Display Name Description Problem Type Effective Dates Data Source(s) 138739219 Hemorrhage of rectum and anus Hemorrhage of rectum and anus Problem 11/23/2020 12:00:00 AM EST [facility] ([facility]) [id number] Chronic intractable migraine without aur a Chronic intractable migraine without aura Problem 10/29/2020 12:00:00 AM EST [facility] ([facility]) [id number] Dizziness and giddiness Dizziness and giddiness Proble m 10/29/2020 12:00:00 AM EST [facility] ([facility]) [id number] 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 Problem 10/29/2020 12:00:00 AM EST [facility] ([facility] [facility] [id number] Pain in right leg Pain in right leg Diagnosis 01/08/2020 03:52:00 PM EDT [facility] [id number] Encounter for screening for lipoid disor ders Encounter for screening for lipoid disorders Diagnosis 10/24/2019 08:38:00 AM [facility] M1990 Unspecified osteoarthritis, unspecified site Unspecified osteoarthritis, unspecified site Diagnosis 10/24/2019 08:38:00 AM [facility] R319 Hematuria, unspecified Hematuria, unspecified Diagnosi s 10/24/2019 08:38:00 AM [facility] R634 Abnormal weight loss Abnormal weight loss Diagnosis 10/24/2019 08:38:00 AM [facility] I10 Essential (primary) hypertension Essential (primary) h ypertension Diagnosis 10/24/2019 08:38:00 AM [facility] Surgeries/Procedures Procedure Description Date Indications Data Source(s) TeleMedicine Est. Pt. Level 3 02/17/2020 12:00:00 AM E DT eCW1 (Formerly [facility]) ESTABILISHED PATIENT [facility] FAC[facility] CHARGE 020 12:00:00 AM EST eCW1 (Formerly [facility]) Results ID Date Data Source [id number] 11/26/2020 09:40:00 AM EST [facility] Name Value Range Interpretation Code Description Data Stormy rce(s) Supporting Document(s) SARS coronavirus 2 RNA Not Detected [facility] [place] This lab was ordered by [facility] and reported by [facility]. ID Date Data Source [id number] 01/13/2020 02:50:00 PM EDT [facility] [address] [place] [address] PHONE: [phone] FAX: [phone] Name .................. : RAJ Segovia Acct Number.................. : [id number] ROOM. ................. : Number ................... : [id number] Stay type ............. : O/P Discharge Date......... ... : 01/08/20 Admit Date ......... : 01/08/20 Admit Phys .................... : JENNIFER Date of ....... : 1985 Family Phys ................... : JENNIFER Phone .................. : [phone] Age ................................ : 34 Film# .................. .:[id number] Sex ................................. : F Unsigned transcriptions are preliminary reports and do not represent a medical or legal document [place] [id number] COMPLETE:01/08/20 15:57 [id number] (REASON FOR PROCESS: PAIN & TENDERNESS; R/O DVT RIGHT LOWER EXTREMITY VENOUS DOPPLER DUPLEX ULTRASOUND: INDICATION: Calf pain. FINDINGS: There is normal compressibility of the deep venous system from the external iliac through the popliteal vein with normal augmentation identified. IMPRESSION: No evidence for any underlying DVT. Electronically Reviewed and Signed By Francisco Javier Patel M.D. , 01/13/20 14:50, [facility] Transcribe Initials: DZ , Transcribe Date: 01/08/20 16:51, Dictation Date: Copy for: JENNIFER DAWKINS Copy for: [address] [place] [address] REC Page 1 of 1 Name Value Range Interpretation Code Description Data Stormy rce(s) Supporting Document(s) ID Date Data Source [id number] 10/25/2019 06:15:00 PM [facility] Name Value Range Interpretation Code Description Data Stormy rce(s) Supporting Document(s) Nuclear Ab [Presence] in Serum Negative Negative [facility] ID Date Data Source [id number] 10/24/2019 10:11:00 AM [facility] Name Value Range Interpretation Code Description Data Stormy rce(s) Supporting Document(s) COMPREHENSIVE METABOLIC PANEL [facility] COMPREHENSIVE METABOLIC PANEL Sodium [Moles/volume] in Serum or Plasma 139 mEq/L 134 - 153 [facility] Potassium [Moles/volume] in Serum or Plasma 4.4 mEq/L 3.6 - 5.0 [facility] Chloride [Moles/volume] in Serum or Plasma 100 mEq/L 98 - 107 [facility] Carbon dioxide, total [Moles/volume] in Serum or Plasma 27 MEQ/L 22 - 30 [facility] Glucose [Mass/volume] in Serum or Plasma 83 MG/DL 65 - 110 [facility] BUN 10 MG/DL 7 - 21 [facility] al Creatinine [Mass/volume] in Serum or Plasma 0.9 MG/DL 0.7 - 1.5 [facility] BUN/CREAT 11 8 - 27 [facility] Protein [Mass/volume] in Serum or Plasma 6.7 G/DL 6.3 - 8.2 [facility] Albumin [Mass/volume] in Serum or Plasma 4.5 G/DL 3.9 - 5.0 [facility] Globulin [Mass/volume] in Serum by calculation 2.2 GM/DL 2.4 - 3.2 L [facility] A/G RATIO 2.0 0.8 - 2.0 [facility] Calcium [Mass/volume] in Serum or Plasma 9.7 MG/DL 8.4 - 10.2 [facility] Bilirubin.total [Mass/volume] in Serum or Plasma 0.7 MG/DL 0.2 - 1.3 [facility] Alkaline phosphatase [Enzymatic activity/volume] in Serum or Plasma 56 U/L 38 - 126 [facility] Aspartate aminotransferase [Enzymatic activity/volume] in Serum or Plasma 14 U/L 5 - 40 [facility] Alanine aminotransferase [Enzymatic activity/volume] in Seru m or Plasma 11 U/L 7 - 56 [facility] Anion gap 3 in Serum or Plasma 12.0 mmol/L 8.0 - 16.0 [facility] AGE 34 yrs [facility] al NON-AA GFR >60 mL/min [facility] ital AFR AMER GFR >60 mL/min [facility] Ho spital Male GFR In terprentation 20-49 yrs >60 mL/min Normal 50-59 yrs >56 mL/min Normal 60-69 yrs >49 mL/min Normal 70-79yrs >42 mL/min Normal 80 and above >35 mL/min Normal Female GFR Interpretation 20-39 yrs >60 mL/min Normal 40-49 yrs >58 mL/min Normal 50-59 yrs >51 mL/min Normal 60-69 yrs >45 mL/min Normal 70-79 yrs >39 mL/min Normal 80 and above >32 mL/min Normal ID Date Data Source [id number] 10/24/2019 09:38:00 AM [facility] Name Value Range Interpretation Code Description Data Stormy rce(s) Supporting Document(s) [facility] URINALYSIS SOURCE R [facility] al COLOR yellow NORMAL: Yellow [facility] ospital CLARITY clear NORMAL: Clear [facility] spital Specific gravity of Urine by Test strip 1.020 1.001 - 1.030 [facility] pH 6 5 - 9 [facility] Glucose [Mass/volume] in Urine by Test strip NORM NORMAL: Negat [facility] Bilirubin.total [Presence] in Urine by Test strip NEG NORMAL: Negative [facility] Ketones [Presence] in Urine by Test strip NEG NORMAL: Negative [facility] Protein [Mass/volume] in Urine by Test strip NEG NORMAL: Negat [facility] Nitrite [Presence] in Urine by Test strip NEG NORMAL: Negative [facility] BLOOD NEG NORMAL: Negative [facility] Leukocyte esterase [Presence] in Urine by Test strip NEG DANIELLE L: Negative [facility] Urobilinogen [Mass/volume] in Urine by Test strip 1 less juvenal n 1.0 mg/dL [facility] MICROSCOPIC Not Indicate [facility] ospital ID Date Data Source [id number] 10/24/2019 09:36:00 AM [facility] Name Value Range Interpretation Code Description Data Stormy rce(s) Supporting Document(s) Thyrotropin [Units/volume] in Serum or Plasma by Detec tion limit <= 0.05 mIU/L 1.30 uIU/mL 0.47 - 5.01 [facility] ID Date Data Source [id number] 10/24/2019 09:36:00 AM [facility] Name Value Range Interpretation Code Description Data Stormy rce(s) Supporting Document(s) Thyroxine (T4) free index in Serum or Plasma by calculation 1.15 NG/DL 0.93 - 1.70 [facility] ID Date Data Source [id number] 10/24/2019 09:31:00 AM [facility] Name Value Range Interpretation Code Description Data Stormy rce(s) Supporting Document(s) C reactive protein [Mass/volume] in Serum or Plasma by High sensitivity method 0.28 MG/L 1.00 - 3.00 L [facility] CDC/S HS-CRP CUT-OFF: RELATIVE RISK: <1.0 mg/L Low 1.0 - 3.0 mg/L Average >3.0 mg/L High Optimally, the average of HS-CRP results repeated two weeks apart should be used for risk assessment. ID Date Data Source [id number] 10/24/2019 09:31:00 AM [facility] Name Value Range Interpretation Code Description Data Stormy rce(s) Supporting Document(s) [facility]EL [facility] LIPID PANEL Cholesterol [Mass/volume] in Serum or Plasma 205 MG/DL 131 - 200 H [facility] Deprecated Triglyceride [Mass/volume] in Serum or Plasma 95 MG/DL 3 5 - 160 [facility] HDL 63 MG/DL 29 - 86 [facility] Cholesterol in LDL/Cholesterol in HDL [Mass Ratio] in Serum or Plasma 142 mg/dL 65 - 175 [facility] Cholesterol.total/Cholesterol in HDL [Mass Ratio] in Serum o r Plasma 3.3 3.2 - 4.4 [facility] LDL/HDL 2.25 1.47 - 3.22 [facility] ital CVE RISK CHOL/HDL LDL/HDLMEN: 1/2 AVERAGE 3.43 1.00 AVERAGE 4.97 3.55 2X AVERAGE 9.55 6.25 3X AVERAGE 23.99 7.99WOMEN: 1/2 AVERAGE 3.27 1.47 AVERAGE 4.44 3.22 2X AVERAGE 7.05 5.03 3X AVERAGE 11.04 6.14 ID Date Data Source [id number] 10/24/2019 09:25:00 AM [facility] Name Value Range Interpretation Code Description Data Stormy rce(s) Supporting Document(s) Amylase [Enzymatic activity/volume] in Serum or Plasma 50 U/L 30 - 110 [facility] ID Date Data Source [id number] 10/24/2019 09:10:00 AM EST [facility] Name Value Range Interpretation Code Description Data Stormy rce(s) Supporting Document(s) Erythrocyte sedimentation rate by Westergren method 2 mm/hr 0 - 20 [facility] SED RATE REENTER 2 [facility] ID Date Data Source [id number] 10/24/2019 08:56:00 AM EST [facility] Name Value Range Interpretation Code Description Data Stormy rce(s) Supporting Document(s) CBC W/AUTOMATED DIFF [facility] COMPLETE BLOOD COUNT Leukocytes [#/volume] in Blood by Automated count 5.3 10^3/uL 4.2 - 1 1.0 [facility] Erythrocytes [#/volume] in Blood by Automated count 4.38 10^6/uL 4. 20 - 5.40 [facility] Hemoglobin [Mass/volume] in Blood 12.1 g/dL 12.0 - 16.0 [facility] Hematocrit [Volume Fraction] of Blood by Automated count 37.8 % 3 7.0 - 47.0 [facility] Erythrocyte mean corpuscular volume [Entitic volume] by Auto mated count 86.3 fL 81.0 - 101 [facility] Erythrocyte mean corpuscular hemoglobin [Entitic mass] by Automated count 27.6 pg 27.0 - 34.0 [facility] Erythrocyte mean corpuscular hemoglobin concentration [Mass/volume] by Automated count 32.0 g/dL 31.0 - 36.0 [facility] Erythrocyte distribution width [Ratio] by Automated count 13.8 % 11.5 - 14.5 [facility] Platelets [#/volume] in Blood by Automated count 250 10^3/uL 150 - 45 0 [facility] Platelet mean volume [Entitic volume] in Blood by Automated count 10.8 fL 7.4 - 10.4 H [facility] Neutrophils/100 leukocytes in Blood by Automated count 63.7 % 37. 0 - 80.0 [facility] Lymphocytes/100 leukocytes in Blood by Manual count 25.9 % 25.0 - 40.0 [facility] Monocytes/100 leukocytes in Blood by Automated count 6.6 % 3.0 - 8.0 [facility] Eosinophils/100 leukocytes in Blood by Automated count 2.8 % 0.0 - 7.0 [facility] Basophils/100 leukocytes in Blood by Automated count 0.6 % 0.0 - 2.5 [facility] %IG 0.4 % 0.0 - 0.0 H [facility] al %NRBC 0.0 % 0.0 - 0.0 [facility] Neutrophils [#/volume] in Blood by Automated count 3.36 10^3/uL 2.00 - 6.90 [facility] Lymphocytes [#/volume] in Blood by Automated count 1.37 10^3/uL 0.60 - 3.40 [facility] Monocytes [#/volume] in Blood by Automated count 0.35 10^3/uL 0.00 - 0.90 [facility] Eosinophils [#/volume] in Blood by Automated count 0.15 10^3/uL 0.00 - 0.70 [facility] Basophils [#/volume] in Blood by Automated count 0.03 10^3/uL 0.00 - 0.20 [facility] #IG 0.02 10^3/uL 0.00 - 0.10 [facility] #NRBC 0.00 10^3/uL 0.00 - 0.00 [facility] MANUAL DIFF NOT INDICATED [facility] RBC MORPH NOT INDICATED [facility] Procedure Social History Code Duration Value Status Description Data Source(s ) Smoking 10/20/2020 12:00:00 AM EST Former Smoker completed Former Smoker eCW1 (Formerly [facility]) Smoking 10/20/2020 12:00:00 AM EST Former Smoker completed Former Smoker eCW1 (Formerly [facility]) Smoking 10/20/2020 12:00:00 AM EST Former Smoker completed Former Smoker eCW1 (Formerly [facility]) Smoking 10/20/2020 12:00:00 AM EST Former Smoker completed Former Smoker eCW1 (Formerly [facility]) Smoking 08/18/2020 12:00:00 AM EST Former Smoker completed Former Smoker eCW1 (Formerly [facility]) Smoking 08/18/2020 12:00:00 AM EST Former Smoker completed Former Smoker eCW1 (Formerly [facility]) Smoking 08/18/2020 12:00:00 AM EST Former Smoker completed Former Smoker eCW1 (Formerly [facility]) Smoking 04/13/2020 12:00:00 AM EDT Former Smoker completed Former Smoker eCW1 (Formerly [facility]) Smoking 04/13/2020 12:00:00 AM EDT Former Smoker completed Former Smoker eCW1 (Formerly [facility]) Smoking 03/16/2020 12:00:00 AM EDT Former Smoker completed Former Smoker eCW1 (Formerly [facility]) Vital Signs ID Date Data Source UNK Name Value Range Interpretation Code Description Data Source(s) Body temperature 97.3 [degF] 97.3 [degF] [facility] ([facility]) Body weight 67.586 kg 67.586 kg [facility] Body mass index (BMI) [Ratio] 24.0 kg/m2 24.0 k g/m2 [facility] ([facility]) Heart rate 56 /min 56 /min [facility]) Diastolic blood pressure 70 mm[Hg] 70 mm[Hg] [facility] ([facility]) Systolic blood pressure 113 mm[Hg] 113 mm[Hg] M EDENT ([facility]) Body weight 149.00 [lb_av] 149.00 [lb_av] MEDEN T ([facility]) Body height 66 [in_i] 66 [in_i] [facility]) 5'6" Diastolic blood pressure 70 mm[Hg] 70 mm[Hg] eCW1 ([facility]ly [facility]) Systolic blood pressure 113 mm[Hg] 113 mm[Hg] e CW1 ([facility]ly [facility]) Body temperature 97.6 [degF] 97.6 [degF] eCW1 ( [facility]) Respiratory rate 18 /min 18 /min eCW1 ([facility]) Heart rate 59 /min 59 /min eCW1 (Formerly [facility]) Body mass index (BMI) [Ratio] 24.76 kg/m2 24.76 kg/m2 eCW1 ([facility]ly [facility]) Body height 65 [in_i] 65 [in_i] eCW1 ([facility]) Body weight 148.8 [lb_av] 148.8 [lb_av] eCW1 ([facility]) Diastolic blood pressure 66 mm[Hg] 66 mm[Hg] eCW1 ([facility]ly [facility]) Systolic blood pressure 114 mm[Hg] 114 mm[Hg] e CW1 ([facility]ly [facility]) Body temperature 99.6 [degF] 99.6 [degF] eCW1 ( [facility]) Respiratory rate 18 /min 18 /min eCW1 ([facility]) Heart rate 67 /min 67 /min eCW1 ([facility]) Body mass index (BMI) [Ratio] 24.29 kg/m2 24.29 kg/m2 eCW1 ([facility]ly [facility]) Body height 65 [in_i] 65 [in_i] eCW1 ([facility]) Body weight 146.0 [lb_av] 146.0 [lb_av] eCW1 ([facility]) Diastolic blood pressure 56 mm[Hg] 56 mm[Hg] eCW1 ([facility]) Systolic blood pressure 111 mm[Hg] 111 mm[Hg] e CW1 ([facility]) Body temperature 99.0 [degF] 99.0 [degF] eCW1 ( [facility]) Respiratory rate 18 /min 18 /min eCW1 ([facility]) Heart rate 70 /min 70 /min eCW1 ([facility]) Body mass index (BMI) [Ratio] 22.76 kg/m2 22.76 kg/m2 eCW1 ([facility]) Body height 65 [in_i] 65 [in_i] eCW1 ([facility]) Body weight 136.8 [lb_av] 136.8 [lb_av] eCW1 ([facility]) Diastolic blood pressure 65 mm[Hg] 65 mm[Hg] eCW1 ([facility]) Systolic blood pressure 109 mm[Hg] 109 mm[Hg] e CW1 ([facility]) Body temperature 97.0 [degF] 97.0 [degF] eCW1 ( [facility]) Respiratory rate 18 /min 18 /min eCW1 ([facility]) Heart rate 71 /min 71 /min eCW1 ([facility]) Body mass index (BMI) [Ratio] 22.96 kg/m2 22.96 kg/m2 eCW1 ([facility]) Body height 65 [in_us] 65 [in_us] eCW1 ([facility]) Body weight Measured 138 [lb_av] 138 [lb_av] eC W1 ([facility]) Diastolic blood pressure 70 mm[Hg] 70 mm[Hg] eCW1 ([facility]) Systolic blood pressure 108 mm[Hg] 108 mm[Hg] e CW1 ([facility]) Body temperature 98.6 [degF] 98.6 [degF] eCW1 ( [facility]) Respiratory rate 18 /min 18 /min eCW1 ([facility]) Heart rate 70 /min 70 /min eCW1 ([facility]) Body mass index (BMI) [Ratio] 22.70 kg/m2 22.70 kg/m2 eCW1 ([facility]) Body height 65 [in_us] 65 [in_us] eCW1 ([facility]) Body weight Measured 136.4 [lb_av] 136.4 [lb_av ] eCW1 ([facility]) Diastolic blood pressure 70 mm[Hg] 70 mm[Hg] eCW1 ([facility]) Systolic blood pressure 126 mm[Hg] 126 mm[Hg] e CW1 ([facility]) Body temperature 98.7 [degF] 98.7 [degF] eCW1 ( [facility]) Respiratory rate 18 /min 18 /min eCW1 ([facility]) Heart rate 72 /min 72 /min eCW1 ([facility]) Body mass index (BMI) [Ratio] 21.30 kg/m2 21.30 kg/m2 eCW1 ([facility]) Body height 65 [in_us] 65 [in_us] eCW1 ([facility]) Body weight Measured 128 [lb_av] 128 [lb_av] eC W1 ([facility]) Body surface area 1.64 m2 1.64 m2 [facility] ([facility]) Body mass index (BMI) [Ratio] 20.3 kg/m2 20.3 k g/m2 [facility] ([facility]) Body height 66 [in_i] 66 [in_i] [facility] ([facility]) 5'6" Body weight 57.154 kg 57.154 kg [facility] ([facility]) Body weight 126.00 [lb_av] 126.00 [lb_av] MEDEN T ([facility]) Oxygen saturation in Arterial blood by Pulse oximetry 97 % 97 % [facility] ([facility]) Respiratory rate 18 /min 18 /min [facility] ( [facility]) Body temperature 97.6 [degF] 97.6 [degF] [facility] ([facility]) Heart rate 68 /min 68 /min [facility] ([facility]) Diastolic blood pressure 58 mm[Hg] 58 mm[Hg] [facility] ([facility]) Systolic blood pressure 102 mm[Hg] 102 mm[Hg] M EDENT ([facility]) Patient Treatment Plan of Care Planned Activity Planned Date Details Description Data Source (s) Acetaminophen 325 MG / Oxycodone Hydrochloride 7.5 MG Oral Tablet 11/11/2020 12:00:00 AM EST eCW1 ([facility]) Acetaminophen 325 MG / Oxycodone Hydrochloride 7.5 MG Oral Tablet 11/11/2020 12:00:00 AM EST eCW1 ([facility]) Acetaminophen 325 MG / Oxycodone Hydrochloride 7.5 MG Oral Tablet 10/11/2020 12:00:00 AM EST eCW1 ([facility]) Acetaminophen 325 MG / Oxycodone Hydrochloride 7.5 MG Oral Tablet 08/31/2020 12:00:00 AM EST eCW1 ([facility]) Acetaminophen 325 MG / Oxycodone Hydrochloride 7.5 MG Oral Tablet 08/06/2020 12:00:00 AM EDT eCW1 ([facility]) Acetaminophen 325 MG / Oxycodone Hydrochloride 5 MG Or al Tablet 08/06/2020 12:00:00 AM EDT eCW1 ([facility]) Acetaminophen 325 MG / Oxycodone Hydrochloride 5 MG Or al Tablet 08/02/2020 12:00:00 AM EDT eCW1 ([facility]) pregabalin 100 MG Oral Capsule [Lyrica] 03/16/2020 12:00:00 AM EDT eCW1 ([facility]) pregabalin 100 MG Oral Capsule [Lyrica] 03/16/2020 12:00:00 AM EDT eCW1 ([facility]) pregabalin 75 MG Oral Capsule [Lyrica] 03/16/2020 12:00:00 AM EDT eCW1 ([facility]) pregabalin 75 MG Oral Capsule [Lyrica] 03/16/2020 12:00:00 AM EDT eCW1 ([facility]) Acetaminophen 325 MG / Hydrocodone Bitartrate 5 MG Ora l Tablet [Avalon] 03/16/2020 12:00:00 AM EDT eCW1 ([facility]) pregabalin 75 MG Oral Capsule [Lyrica] 03/16/2020 12:00:00 AM EDT eCW1 ([facility]) pregabalin 75 MG Oral Capsule [Lyrica] 03/16/2020 12:00:00 AM EDT eCW1 ([facility]) Acetaminophen 325 MG / Hydrocodone Bitartrate 5 MG Ora l Tablet [Avalon] 03/16/2020 12:00:00 AM EDT eCW1 ([facility]) pregabalin 100 MG Oral Capsule [Lyrica] 03/16/2020 12:00:00 AM EDT eCW1 ([facility]) pregabalin 100 MG Oral Capsule [Lyrica] 03/16/2020 12:00:00 AM EDT eCW1 ([facility]) pregabalin 100 MG Oral Capsule [Lyrica] 03/16/2020 12:00:00 AM EDT eCW1 ([facility]) Acetaminophen 325 MG / Hydrocodone Bitartrate 5 MG Ora l Tablet [Avalon] 02/17/2020 12:00:00 AM EDT eCW1 ([facility]) tramadol hydrochloride 50 MG Oral Tablet 01/20/2020 12:00:00 AM EDT eCW1 ([facility]) tizanidine 4 MG Oral Tablet 12/15/2019 12:00:00 AM EST eCW1 ([facility]ly [facility]) [place] 150 MCG 11/17/2019 12:00:00 AM EST eCW1 ([facility]) [place] 75 MCG 11/17/2019 12:00:00 AM EST eCW1 ([facility])
[2020-12-01] MEDS ORDERED: fentaNYL 100 MCG/2 ML INJECTION (J3010) As Ordered ONE (11:45)
[2020-12-01] MEDS ORDERED: propofoL 500 MG/50 ML VIAL As Ordered ONE (11:45)
[2020-12-01] MEDS ORDERED: LIDOCAINE 2% 100MG/5ML SDV (FOR ANES.) As Ordered ONE (11:45)
--- NOTE | 2020-12-01 12:00 | ROOR ---
Patient Name: Roxy Lopez Procedure Date: 12/01/2020 11:43 AM Date of : 1985 Age: 35 Room: [facility] Gender: Female Note Status: Finalized Procedure: Upper Endoscopy + Biopsies Indications: Nausea with vomiting, Weight loss Providers: Dave Lagos MD Referring MD: Pavel Haile Requesting Provider: Medicines: Monitored Anesthesia Care Complications: No immediate complications. Procedure: Pre-Anesthesia Assessment: - The heart rate, respiratory rate, oxygen saturations, blood pressure, adequacy of pulmonary ventilation, and response to care were monitored throughout the procedure. The Endoscope was introduced through the mouth, and advanced to the second part of duodenum. The upper GI endoscopy was accomplished without difficulty. The patient tolerated the procedure well. Findings: The Z-line was regular and was found 40 cm from the incisors. Multiple biopsies were obtained with cold forceps for evaluation to rule out Sotomayor's Esophagus randomly at the gastroesophageal junction. Localized mild inflammation characterized by congestion (edema), erosions and erythema was found in the gastric antrum. Biopsies were taken with a cold forceps for Helicobacter pylori testing. The exam was otherwise without abnormality. Impression: - Z-line regular, 40 cm from the incisors. - Mucosal changes suspicious for gastritis. Biopsied. - The examination was otherwise normal. - Multiple biopsies were obtained at the gastroesophageal junction. - The examination was otherwise normal. Recommendation: - Patient has a contact number available for emergencies. The signs and symptoms of potential delayed complications were discussed with the patient. Return to normal activities tomorrow. Written discharge instructions were provided to the patient. - Resume previous diet. - Discharge patient to home. - Follow an antireflux regimen. - Continue present medications. - Await pathology results. - Telephone GI clinic for pathology results in 1 week. - Return to referring physician. - The findings and recommendations were discussed with the patient. Procedure Code(s): --- Professional --- 02438, Esophagogastroduodenoscopy, flexible, transoral; with biopsy, single or multiple Diagnosis Code(s): --- Professional --- K31.89, Other diseases of stomach and duodenum R11.2, Nausea with vomiting, unspecified R63.4, Abnormal weight loss CPT copyright 2019 [employer]. All rights reserved. The codes documented in this report are preliminary and upon hcc coders review may be revised to meet current compliance requirements. Dave Lagos MD Dave Lagos MD 12/01/2020 11:59:33 AM Electronically signed by Dave Lagos MD Number of Addenda: 0 Note Initiated On: 12/01/2020 11:43 AM Estimated Blood Loss: Estimated blood loss: none.
--- NOTE | 2020-12-01 12:22 | ROOR ---
Patient Name: Roxy Lopez Procedure Date: 12/01/2020 11:44 AM Date of : 1985 Age: 35 Room: [facility] Gender: Female Note Status: Finalized Procedure: Total Colonoscopy to Cecum + ileoscopy + Bx Indications: Rectal bleeding Providers: Dave Lagos MD Referring MD: Pavel Haile Requesting Provider: Medicines: Monitored Anesthesia Care Complications: No immediate complications. Procedure: Pre-Anesthesia Assessment: - The heart rate, respiratory rate, oxygen saturations, blood pressure, adequacy of pulmonary ventilation, and response to care were monitored throughout the procedure. The Colonoscope was introduced through the anus and advanced to the cecum, identified by appendiceal orifice and ileocecal valve. The colonoscopy was performed without difficulty. The patient tolerated the procedure well. The quality of the bowel preparation was excellent. Findings: The perianal and digital rectal examinations were normal. Inflammation characterized by altered vascularity, congestion (edema), erythema and granularity was found as small patches surrounded by normal mucosa in the anus. The recto-sigmoid colon, the sigmoid colon, the descending colon, the transverse colon, the ascending colon, the cecum and the ileocecal valve were spared. This was mild in severity. Biopsies were taken with a cold forceps for histology. Biopsies were obtained with cold forceps for histology randomly in the ascending colon. The terminal ileum appeared normal. The exam was otherwise without abnormality. Impression: - Proctitis ulcerative colitis. Inflammation was found in the anus. This was mild in severity. Biopsied. - The examined portion of the ileum was normal. - The examination was otherwise normal. - Biopsies were obtained in the ascending colon. - The exam was otherwise normal to the cecum. Recommendation: - Patient has a contact number available for emergencies. The signs and symptoms of potential delayed complications were discussed with the patient. Return to normal activities tomorrow. Written discharge instructions were provided to the patient. - High fiber diet. - Discharge patient to home. - Use Canasa 1000 mg suppository 1 per rectum QHS. - Await pathology results. - Telephone GI clinic for pathology results in 1 week. - Return to referring physician. - The findings and recommendations were discussed with the patient. Procedure Code(s): --- Professional --- 54203, Colonoscopy, flexible; with biopsy, single or multiple Diagnosis Code(s): --- Professional --- K51.211, Ulcerative (chronic) proctitis with rectal bleeding K62.5, Hemorrhage of anus and rectum CPT copyright 2019 [employer]. All rights reserved. The codes documented in this report are preliminary and upon blackener review may be revised to meet current compliance requirements. Dave Lagos MD Dave Lagos MD 12/01/2020 12:22:11 PM Electronically signed by Dave Lagos MD Number of Addenda: 0 Note Initiated On: 12/01/2020 11:44 AM Estimated Blood Loss: Estimated blood loss: none.
[2020-12-01 12:44] VITALS: BP 104/56
== END 2020-12-01 12:46 | disposition home or self-care (01) ==
LOC: M OPP 10:39
PROVIDERS: ATTEND Internal Medicine Gastroenterology
DX: K62.5 Hemorrhage of anus and rectum (principal); R11.2 Nausea with vomiting, unspecified; R63.4 Abnormal weight loss; D12.6 Benign neoplasm of colon, unspecified; K51.211 Ulcerative (chronic) proctitis with rectal bleeding; D13.1 Benign neoplasm of stomach; K31.89 Other diseases of stomach and duodenum; M79.7 Fibromyalgia; G43.909 Migraine, unspecified, not intractable, without status migrainosus; Z96.89 Presence of other specified functional implants; Z87.891 Personal history of nicotine dependence; Z91.018 Allergy to other foods; Z79.899 Other long term (current) drug therapy
CPT/HCPCS: 43239; 45380; 88305; J3010

== ENCOUNTER → 2021-01-18 | Outpatient (CLI) | payer OTHER ==
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
== END ==
LOC: M PAIN 10:00
PROVIDERS: ATTEND Nurse Practitioner Family
DX: M51.16 Intervertebral disc disorders with radiculopathy, lumbar region (principal); G43.909 Migraine, unspecified, not intractable, without status migrainosus; G25.81 Restless legs syndrome; G47.00 Insomnia, unspecified; M79.7 Fibromyalgia; Z87.891 Personal history of nicotine dependence; Z79.891 Long term (current) use of opiate analgesic; Z79.899 Other long term (current) drug therapy; Z91.018 Allergy to other foods

== ENCOUNTER → 2021-03-28 | Outpatient (CLI) | payer OTHER ==
--- NOTE | 2021-03-29 23:58 | ECWPNPC ---
PATIENT NAME: JACKIE ANTHONY : 1985 GENDER: FEMALE VISIT DATE: 03/28/2021 DISCHARGE DATE: 03/28/21 1207 VISIT LOCKED DATE TIME: PHYSICIAN: RABIA PACHECO RESOURCE: RABIA PACHECO REASON FOR APPOINTMENT 1. URINE TOX/PILL COUNT ID-LOW BACK PAIN WITH RIGHT LEG PAIN HISTORY OF PRESENT ILLNESS GENERAL: HERE FOR FOLLOW-UP AND MEDICATION MANAGEMENT OF PERSISTENT LOW BACK PAIN AND BILATERAL LOWER EXTREMITY RADICULAR SYMPTOMS. HAS DORSAL COLUMN STIMULATOR THAT SHE USES WITH SOME RELIEF. STOPPED TAKING LYRICA IT WAS MAKING HER FEEL SICK. CURRENTLY USING TIZANIDINE AND OXYCODONE 7.5/325 PERIODICALLY FOR SEVERE PAIN EPISODES. BRINGS IN HER MEDICINE WHICH IS APPROPRIATE FOR WHAT WAS DISPENSED. REPORTING RIGHT LOWER EXTREMITY NUMBNESS AFTER PROLONGED SITTING THAT BEGAN A FEW WEEKS AGO. DENIES BOWEL OR BLADDER INCONTINENCE. DENIES SADDLE PARESTHESIAS. DENIES INJURIES. -. FALL RISK SCREENING: SCREENING STATES SHE FALLS A FEW TIMES EVERY MONTH-HER RIGHT LEG GIVES OUT ON HER. NOTHING REQUIRED EVALUATION-NO INJURIES.. PAIN SCREENING: PATIENT HAS A COMPLAINT OF ACUTE OR CHRONIC PAIN :YES LOCATION OF PAIN:LOW BACK, LEG(S) DOWN BACK OF BOTH LEGS INTENSITY OF PAIN (SCALE OF 1 TO 10):4 WHAT DOES YOUR PAIN FEEL LIKE:BURNING, CONTINOUS, SHARP, TENDER, SORE, SHOOTING DURATION:CONTINOUS, CONSTANT, AWAKENS FROM SLEEP PAIN IS INCREASED BY:OTHERS RESTING PAIN IS DECREASED BY:USE OF PAIN MEDICATIONS, OTHERS PAIN MEDS HELP TAKE THE EDGE OFF, MOVING AROUND PAIN HAS INTERFERED WITH THE FOLLOWING: EVERYTHING NURSING NOTE: -. PAIN CENTER INTAKE QUESTIONS: DO YOU HAVE A HISTORY OF MRSA? :NO DO YOU TAKE A BLOOD THINNERS? :NO DO YOU HAVE ANY BLEEDING DISORDERS? :NO ANY NEW NUMBNESS OR WEAKNESS IN YOUR LEGS OR ARMS? :YES NEW NUMBNESS RIGHT LEG IF SHE SITS TOO LONG-FOR THE PAST 2 WEEKS ANY PACEMAKER,DEFIBRILLATOR, OR DORSAL COLUMN STIMULATOR? :YES DORSAL COLUMN STIMULATOR DO YOU HAVE ANY RASHES OR OPEN SORES? :YES OPEN SORE RIGHT THUMB ARE YOU ALLERGIC TO IV DYE? :NO ARE YOU DIABETIC? :NO ANY NEW PROBLEMS WITH YOUR MEDICATIONS? :YES NOT TAKING LYRICA DUE TO N/V HAVE YOU RECEIVED A VACCINE IN THE PAST 30 DAYS? :NO DO YOU PLAN TO RECEIVE A VACCINE IN THE NEXT 21 DAYS? :NO DO YOU NEED ANY PRESCRIPTION? :YES OXYCODONE AND TIZANIDINE DO YOU TAKE ANY IMMUNOSUPPRESSIVE MEDICATIONS? :NO IS THERE A CHANCE YOU COULD BE ? :NO ARE YOU BREAST FEEDING? :NO CURRENT MEDICATIONS TAKING IBUPROFEN 200 MG #60 200 MG TABLETS 2-4 TABLETS ORALLY EVERY 6-8 HOURS, NOTES: NONE IN MONTH TAKING TYLENOL 325 MG TABLET 1 TABLET NEEDED ORALLY EVERY 6 HRS TAKING CETIRIZINE HCL 10 MG TABLET 1 TABLET ORALLY ONCE A DAY TAKING SINGULAIR 10 MG TABLET 1 TABLET ORALLY ONCE A DAY TAKING OXYCODONE-ACETAMINOPHEN 7.5-325 MG TABLET 1 TABLET NEEDED ORALLY EVERY 8 HRS FOR PAIN TAKING TIZANIDINE HCL 6 MG CAPSULE 1 TABLET NEEDED ORALLY THREE TIMES A DAY NOT-TAKING MELATONIN ER 10 MG TABLET EXTENDED RELEASE DIRECTED 2 TABLETS ORALLY NIGHTLY, NOTES: NONE IN PAST MONTH NOT-TAKING MONTELUKAST SODIUM 10 MG TABLET 1 TABLET ORALLY ONCE A DAY NOT-TAKING METHOCARBAMOL 750 MG TABLET 1 TABLET ORALLY EVERY 8 HOURS NOT-TAKING CEFTIN 500 MG TABLET 1 TABLET ORALLY TWICE A DAY NOT-TAKING MECLIZINE HCL 25 MG TABLET 1 TABLET NEEDED ORALLY 3 TIMES A DAY NOT-TAKING PANTOPRAZOLE SODIUM 40 MG TABLET DELAYED RELEASE 1 TABLET ORALLY ONCE A DAY NOT-TAKING TRAZODONE HCL 150 MG TABLET 1 TABLET AT BEDTIME ORALLY ONCE A DAY NOT-TAKING COLACE 100 MG CAPSULE 1 CAPSULE NEEDED ORALLY ONCE A DAY NOT-TAKING DULOXETINE HCL 60 MG CAPSULE DELAYED RELEASE PARTICLES 1 CAPSULE ORALLY ONCE A DAY NOT-TAKING LYRICA 200 MG CAPSULE 1 CAPSULE ORALLY THREE TIMES DAILY (PAIN CLINIC) NOT-TAKING LYRICA 200 MG CAPSULE 1 CAPSULE ORALLY THREE A DAY MDD=3 NOT-TAKING CUSTOM DO NO USE MORPHINE IR 15 MG DIRECTED FOUR TIMES DAILY NEEDED (PAIN CLINIC) NOT-TAKING SKELAXIN 800 MG TABLET 1 TABLET ORALLY THREE TO FOUR TIMES A DAY (PAIN CLINIC) NOT-TAKING TIZANIDINE HCL 8 MG TABLET 1 TABLET NEEDED ORALLY EVERY 8 HRS (PAIN CLINIC), NOTES: DPLICATE NOT-TAKING FLINTSTONES COMPLETE - TABLET CHEWABLE DIRECTED 2 TABLETS ORALLY DAILY NOT-TAKING LYRICA 100 MG CAPSULE 1 CAPSULE ORALLY THREE TIMES DAILY MEDICATION LIST REVIEWED AND RECONCILED WITH THE PATIENT PAST MEDICAL HISTORY CHRONIC R KNEE PAIN LUMBAR DEGENERATIVE DISC DZ/HERNIATION MIGRAINES RLS INSOMNIA HEARING LOSS FROM NOISE EXPOSURE IN THE [employer] LEFT WORSE THAN RIGHT KIDNEY STONES MYOPIA FIBROMYALGIA COSTOCHONDRITIS OSTEOARTHRITIS ENDOMETRIOSIS ALLERGIES HONEY: THROAT CLOSES OFF - ALLERGY LYRICA: NAUSEA/VOMITING - SIDE EFFECTS SURGICAL HISTORY TONSILLECTOMY CHILD 2009 CHOLECYSTECTOMY 11/2015 LEFT WRIST RESET AFTER FRACTURES 04/2002 DORSAL COLUMN STIMULATOR 07/2018 ENDOECYSTECTOMY 12/22/2020 FAMILY HISTORY FATHER: ALIVE, DIAGNOSED WITH DIABETES MOTHER: ALIVE, NO KNOWN MEDICAL PROBLEMS SIBLINGS: ALIVE 23 YRS MATERNAL GRAND MOTHER: ALIVE, BREAST AND LUNG CANCER 1 BROTHER(S) - HEALTHY. 2 SON(S) - HEALTHY. NO KNOWN FAMILY HISTORY OF ANY UROLOGICALLY RELATED DISEASES/CANCERS. SOCIAL HISTORY GENERAL: TOBACCO USE ARE YOU A:FORMER SMOKER HOW LONG HAS IT BEEN SINCE YOU LAST SMOKED?6-12 MONTHS VAPORYES E-CIGARETTEYES IN PROCESS OF QUITTING LATEX QUESTIONNAIRE LATEX ALLERGY : HAVE YOU EVER DEVELOPED ANY TYPE OF REACTION AFTER HANDLING LATEX PRODUCTS SUCH RUBBER GLOVES, CONDOMS, DIAPHRAGMS, BALLOONS, SOCKS, OR UNDERWEAR?NO LATEX ALLERGY : HAVE YOU EVER DEVELOPED ANY TYPE OF REACTION DURING OR AFTER DENTAL APPOINTMENT, VAGINAL/RECTAL EXAMINATION, SURGICAL PROCEDURE, OR ANY OTHER EXPOSURE?NO LATEX RISK : HAVE YOU EVER HAD ANY DIFFICULTY BREATHING OR HIVES AFTER EATING OR HANDLING ANY FRUITS, OR VEGETABLES; SUCH KIWI, BANANAS, STONE FRUITS, OR CHESTNUTSNO LATEX RISK : DO YOU HAVE A PREVIOUS PERSONAL HISTORY OF MORE THAN NINE SURGERIES, SPINA BIFIDA, OR REPEATED CATHERIZATIONS? NO LATEX RISK : ARE YOU FREQUENTLY EXPOSED TO LATEX PRODUCTS IN YOUR OCCUPATION?NO DATE ASKED : 03/28/2021 ALCOHOL USE: NO. ALCOHOL SCREENING DID YOU HAVE A DRINK CONTAINING ALCOHOL IN THE PAST YEAR?NO POINTS0 INTERPRETATIONNEGATIVE RECREATIONAL DRUG USE DRUG USE?NO DENIES ABUSE OR MISUSE OF MEDICATIONS. DENIES USE OF MARIJUANA OR COCAINE. CAFFEINE CAFFEINE USE?YES HOW OFTEN AND HOW MUCH? 2/DAY COFFEE HIV / HEP-C SCREENING HIV TEST OFFERED TO PATIENT:YES DATE OFFERED:10/10/2018 TEST ACCEPTED:NO HEP-C TEST OFFERED TO PATIENT:NO REASON:PATIENT DECLINED BROCHURE PROVIDED TO PATIENTNO TAOIST [id number] NONE LANGUAGE LANGUAGES SPOKEN:DANISH EDUCATION LEVEL OF EDUCATION:COLLEGE LEARNING BARRIERS / SPECIAL NEEDS CHANGE FROM LAST VISIT?NO BARRIERS TO LEARNING?NO HEARING IMPAIRED?YES : ABLE TO HEAR WITHOUT ASSISTIVE DEVICE VISION IMPAIRED?NO COGNITIVELY IMPAIRED?NO READINESS TO LEARN?YES LEARNING PREFERENCES?NO LEARNING CAPABILITIES PRESENT?YES EMOTIONAL BARRIERS?NO SPECIAL DEVICES?NO SURGICAL SERVICES ASST NEEDED?NO DOMESTIC VIOLENCE DO YOU FEEL SAFE IN YOUR ENVIRONMENT?YES 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 [employer].. DIET: REGULAR. 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 MARITAL STATUS: . OTHERS AT HOME: YES. PATIENT DESCRIBES PAIN : HAVE IT ALL THE TIME, STABBING, FROM 0-10, WHAT LEVEL IS YOUR PAIN TODAY? 6, PRECIPITATING FACTORS STANDING, ALLEVIATING FACTORS ELEVATION OF LEGS, IMPACT ON FUNCTION YES. - PFS REFERRAL NEEDED?NO CLERGY REFERRAL NEEDED?NO PUBLIC HEALTH REFERRAL NEEDED?NO HAS THE PATIENT BEEN EDUCATED REGARDING HIS/HER PLAN OF CARE?YES HAS THE PATIENT BEEN EDUCATED REGARDING PAIN, THE RISK FOR PAIN, THE IMPORTANCE OF EFFECTIVE PAIN MANAGEMENT, AND THE PAIN ASSESSMENT PROCESS?YES HOUSING: HOUSE. ADVANCE DIRECTIVE ADVANCE DIRECTIVE DISCUSSED WITH PATIENT:YES PATIENT HAS NO ADVANCED DIRECTIVES AND HCP INFORMATION OFFERED AND DECLINED. HOSPITALIZATION/MAJOR DIAGNOSTIC PROCEDURE CHILDBIRTH [birth year] REVIEW OF SYSTEMS CONSTITUTIONAL: ANY RECENT FEVER NO . CHILLS NO . WEIGHT CHANGE OF UNKNOWN REASONS NO . GASTROENTEROLOGY: NEW UNEXPLAINABLE CHANGES IN BOWEL CONTROL NO . CONSTIPATION NO . GENITOURINARY: ANY NEW CHANGE IN BLADDER CONTROL? NO . NEUROLOGY: NEW ONSET DIZZINESS OR NEUROLOGICAL CHANGES NOT MENTIONED NO . NEW NUMBNESS OR PAIN PATTERNS NOT MENTIONED AND PERTINENT TO TODAY'S VISIT NO . CARDIOLOGY: NEW CHEST PRESSURE NO . PATIENT DENIES NO . RESPIRATORY: UNEXPLAINABLE COUGH NO . NEW SHORTNESS OF BREATH NO . VITAL SIGNS WT 150.2 LBS, HT 65 IN, BMI 24.99 INDEX, BP 117/74 MM HG, HR 85 /MIN, RR 18 /MIN, TEMP 98.6 F, OXYGEN SAT % 99%, SAFE IN ENV? (Y/N) Y, NA INITIALS AW 1112, REVIEWED BY: Maria C CRUZ RN. EXAMINATION GENERAL EXAMINATION: GENERALNO ACUTE DISTRESS, WELL NOURISHED AND HYDRATED. WALKS WITH LIMP OVER RIGHT LEG. PSYCHAPPROPRIATE MOOD AND AFFECT . NECK:NO LYMPHADENOPATHY, SUPPLE. LUNGS:CLEAR TO AUSCULTATION BILATERALLY, NO WHEEZES, RHONCHI, RALES. HEART:NO MURMURS, REGULAR RATE AND RHYTHM. MUSCULOSKELETAL:MILD WEAKNESS NOTED OVER RIGHT LEG COMPARED TO LEFT . NEUROLOGIC EXAM:DECREASED SENSATION NOTED OVER RIGHT LOWER EXTREMITY COMPARED TO LEFT FROM KNEE TO FOOT.. 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) USE OF OPIATE ANALGESIC REFILL OXYCODONE-ACETAMINOPHEN TABLET, 7.5-325 MG, 1 TABLET NEEDED, ORALLY, EVERY 8 HRS FOR PAIN, 30 DAYS, 90 REFILL TIZANIDINE HCL CAPSULE, 6 MG, 1 TABLET NEEDED, ORALLY, THREE TIMES A DAY, 30 DAYS, 90, REFILLS 1 LAB: URINE TEST GROUP [place] CRUZ 03/28/2021 12:03:10 PM > LAST DOSE OF OXYCODONE/ACETAMIN 03/28/21 0730 PATIENT MEDICATION INVENTORY #1PRESCRIPTON #[id number] OF RX ON BOTTLE02/22/21DRUG AND STRENGTHOXYCODONE/ACETAMIN 7.5/325 MGSFORMULATIONWHITE TABLETVERIFIED DRUG [id number],ANITA 03/28/2021 11:34:57 AM > Maria C CRUZ RN/Mingo MONREAL MA NOTES: ISTOP REGISTRY REVIEWED AND DEMONSTRATES COMPLLIANCE. PROCEDURE CODES FA211 ESTABILISHED PATIENT NEW [facility] CHARGE DISPOSITION & COMMUNICATION FOLLOW UP 6-8WKS (REASON: NEW-ONSET RIGHT LOWER EXTREMITY NEURALGIA) ELECTRONICALLY SIGNED BY BALWINDER DAVEY ON 03/29/2021 AT 08:58 AM EDT DISCLAIMER : THIS IS A VISIT SUMMARY EXTRACTED FROM THE [employer] CHART. IT IS NOT A COPY OF THE [employer] PROGRESS NOTE. FRANCESCA
== END ==
LOC: M PAIN 11:15
PROVIDERS: ATTEND Nurse Practitioner Family
DX: M51.16 Intervertebral disc disorders with radiculopathy, lumbar region (principal); G43.909 Migraine, unspecified, not intractable, without status migrainosus; G25.81 Restless legs syndrome; G47.00 Insomnia, unspecified; M79.7 Fibromyalgia; H91.93 Unspecified hearing loss, bilateral; M19.90 Unspecified osteoarthritis, unspecified site; Z87.891 Personal history of nicotine dependence; Z79.891 Long term (current) use of opiate analgesic; Z79.899 Other long term (current) drug therapy; Z88.8 Allergy status to other drugs, medicaments and biological substances; Z91.018 Allergy to other foods

== ENCOUNTER → 2021-08-25 | Outpatient (CLI) | payer OTHER ==
[~2021-08-25] MED LIST changes: -OXYC1TAB15; +OXYC7.5T3
== END ==
LOC: M PAIN 11:00
PROVIDERS: ATTEND Anesthesiology
DX: Z53.21 Procedure and treatment not carried out due to patient leaving prior to being seen by health care provider (principal)

== ENCOUNTER → 2022-02-16 | Outpatient (CLI) | payer OTHER ==
[~2022-02-16] MED LIST changes: -MONT10TA10; +MONT10TA97
== END ==
LOC: M PAIN 11:00
PROVIDERS: ATTEND Nurse Practitioner Family
DX: M51.16 Intervertebral disc disorders with radiculopathy, lumbar region (principal); G89.29 Other chronic pain; G43.909 Migraine, unspecified, not intractable, without status migrainosus; G25.81 Restless legs syndrome; M79.7 Fibromyalgia; Z96.89 Presence of other specified functional implants; Z87.891 Personal history of nicotine dependence; Z88.8 Allergy status to other drugs, medicaments and biological substances; Z91.018 Allergy to other foods; Z79.899 Other long term (current) drug therapy

== ENCOUNTER → 2022-05-10 | Outpatient (CLI) | payer OTHER | LOC: M PAIN 13:15 | PROVIDERS: ATTEND Anesthesiology | DX: M51.16 Intervertebral disc disorders with radiculopathy, lumbar region (principal); M25.561 Pain in right knee; G43.909 Migraine, unspecified, not intractable, without status migrainosus; G25.81 Restless legs syndrome; G47.00 Insomnia, unspecified; H91.93 Unspecified hearing loss, bilateral; H52.10 Myopia, unspecified eye; M79.7 Fibromyalgia; M19.90 Unspecified osteoarthritis, unspecified site; M94.0 Chondrocostal junction syndrome [Tietze]; N80.9 Endometriosis, unspecified; Z88.8 Allergy status to other drugs, medicaments and biological substances; Z91.018 Allergy to other foods; Z79.891 Long term (current) use of opiate analgesic; Z79.899 Other long term (current) drug therapy ==

== ENCOUNTER → 2022-07-18 | Outpatient (CLI) | payer OTHER | LOC: M PAIN 11:30 | PROVIDERS: ATTEND Nurse Practitioner Family | DX: M51.16 Intervertebral disc disorders with radiculopathy, lumbar region (principal); M25.561 Pain in right knee; G43.909 Migraine, unspecified, not intractable, without status migrainosus; G25.81 Restless legs syndrome; G47.00 Insomnia, unspecified; H91.93 Unspecified hearing loss, bilateral; M79.7 Fibromyalgia; M19.90 Unspecified osteoarthritis, unspecified site; M94.0 Chondrocostal junction syndrome [Tietze]; N80.9 Endometriosis, unspecified; Z90.49 Acquired absence of other specified parts of digestive tract; Z87.81 Personal history of (healed) traumatic fracture; Z79.891 Long term (current) use of opiate analgesic; Z87.891 Personal history of nicotine dependence; Z91.018 Allergy to other foods ==

== ENCOUNTER → 2022-07-25 | Outpatient (CLI) | payer OTHER | LOC: M PAIN 12:30 | PROVIDERS: ATTEND Anesthesiology | DX: M54.16 Radiculopathy, lumbar region (principal); G89.29 Other chronic pain; G43.909 Migraine, unspecified, not intractable, without status migrainosus; G25.81 Restless legs syndrome; M79.7 Fibromyalgia; Z96.89 Presence of other specified functional implants; Z87.891 Personal history of nicotine dependence; Z91.018 Allergy to other foods; Z79.899 Other long term (current) drug therapy ==